=== PATIENT | male | born 1945 | race Caucasian/White ===

== ENCOUNTER 2025-07-20 08:38 | Inpatient (IN) | payer MEDICARE, SELFPAY ==
[2025-07-20] VITALS (11 sets, daily range): BP systolic 125–165; BP diastolic 62–93; PULSE 60–108; RESP 14–22; TEMP 36.6–36.8; O2SAT 97–100; BMI 25.6
--- NOTE | ~2025-07-20 | CT_ITS ---
EXAMINATION: CT brain wo con DATE: 07/20/2025 09:45 INDICATION: Mental status change. TECHNIQUE: Computed tomography (CT) of the head was performed without intravenous contrast. The mA was adjusted according to patient size. Iterative reconstruction technique was employed. The dose-length product was 605.33 mGy-cm. COMPARISON: None FINDINGS: There are scattered areas of low attenuation in the cerebral white matter, which is within normal limits for the patient's age. There is no intracranial hemorrhage, acute infarction, or abnormal intracranial mass lesion. The ventricles are normal in size. There are likely changes of ocular lens replacement surgeries. There is mucosal thickening in the paranasal sinuses. There is thickening and sclerosis of the jimenez of the maxillary sinuses, consistent with chronic sinusitis. The mastoid air cells are normal. IMPRESSION: 1. Normal aging brain. 2. Chronic sinusitis. Reviewed, dictated and finalized at location E.
--- NOTE | ~2025-07-20 | XR_ITS ---
EXAMINATION: XR chest 1V, 07/20/2025 9:42 CDT HISTORY: cough COMPARISON: No comparisons available. Technique: Single view. Findings: The lungs are clear, no effusion. No pneumothorax. Heart is normal size. Mediastinal and hilar contours are within normal limits. Bony thorax no acute abnormality. Impression: No acute cardiopulmonary abnormality. Reviewed, dictated and finalized at location P. Impression: No acute cardiopulmonary abnormality.
--- NOTE | ~2025-07-20 | US_ITS ---
EXAMINATION: US venous doppler UE LT, 07/24/2025 17:00 CDT HISTORY: Phlebitis Comparison: None Technique: Multiple vega scale and color Doppler sonographic images were obtained of the internal jugular, subclavian, axillary, brachial, basilar, radial and ulnar veins. Findings: Venous System:Normal flow, augmentation and compressibility. No echogenic thrombus identified. Soft tissues: Soft tissues are unremarkable. Impression: Negative for DVT. Reviewed, dictated and finalized at location P. Impression: Negative for DVT.
--- NOTE | 2025-07-20 09:23 | ECG_ITS ---
Test Date: 2025-07-20 09:37:18 Measurements Intervals [place] Rate: 97 P: -57 WA: 157 QRS: -34 QRSD: 106 T: 60 QT: 356 QTc: 453 Interpretive Statements SINUS RHYTHM WITH FREQUENT SUPRAVENTRICULAR PREMATURE COMPLEXES LEFT AXIS DEVIATION DELAYED PRECORDIAL R/S TRANSITION VOLTAGE CRITERIA FOR LVH BORDERLINE ST-T WAVE ABNORMALITY- HIGH LATERAL LEADS ABNORMAL ECG No previous ECG available for comparison Electronically Signed On 07-20-2025 10:11:23 CDT by Med Carter D.O.
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
--- NOTE | 2025-07-20 09:38 | PC.NURSE ---
Pt compliance monitor appeared to show brief run of V-tach. RN went into pt room, Pt awake and at baseline mentation, no complaints at this time. EDP aware. Cardiac strip printed and placed in chart. EKG obtained, did not capture the rhythm.
[2025-07-20 09:54] LABS: Hematocrit 36.4 % (42.0-52.0); Hemoglobin 11.6 g/dL (14.0-18.0); Immature Granulocyte Percent A 0.5 % (0-0.5); Lymphocytes Absolute Auto 0.58 K/mm3 (0.9-3.2); Mean Corpuscular HGB Conc 31.9 g/dl (32-36); Mean Corpuscular Hemoglobin 28.6 pg (26-34); Mean Corpuscular Volume 89.9 fl (80-100); Nucleated Red Blood Cells Absolute Auto 0.000 K/mm3 (0.0-0.012); Nucleated Red Blood Cells Perc 0.0 % (0.0-0.2); Platelet Count Result 186 k/mm3 (150-375); Red Blood Count 4.05 M/mm3 (4.6-6.20); White Blood Count 9.8 K/mm3 (4.5-10.0)
[2025-07-20 10:00] LABS: Acetaminophen < 10 ug/mL (10-30); Ammonia 96 umol/L (9-30)
[2025-07-20 10:07] LABS: INR 1.1; Prothrombin Time 13.9 Seconds (11.1-14.7)
[2025-07-20 10:08] LABS: Partial Thromboplastin Time 34.3 Seconds (22.3-36.8)
[2025-07-20 10:20] LABS: Alanine Aminotransferase 28 U/L (6-50); Albumin Level 3.6 g/dL (3.5-5.1); Alkaline Phosphatase 72 U/L (38-126); Anion Gap 6 mmol/L (4-12); Aspartate Amino Transferase 42 U/L (17-59); Bilirubin,Total 0.7 mg/dL (0.2-1.3); Blood Urea Nitrogen 26 mg/dL (9-20); Calcium 9.0 mg/dL (8.4-10.2); Carbon Dioxide 27 mmol/L (22-30); Chloride 109 mmol/L (98-107); Creatine Kinase 380 U/L (55-170); Estimated CRCL calculation 59 ml/min; Estimated Glomerular Filt Rate > 60; Glucose 108 mg/dL (65-110); Magnesium 1.8 mg/dL (1.6-2.3); Potassium 3.4 mmol/L (3.4-5.0); Sodium 142 mmol/L (137-145); Total Protein 6.3 g/dL (6.3-8.2)
[2025-07-20 10:36] LABS: Troponin I 0.042 ng/mL (0.000-0.034)
[2025-07-20 10:46] LABS: Thyroid Stimulating Hormone 0.444 uIU/mL (0.465-4.680)
[2025-07-20] MEDS: SODIUM CHLORIDE 0.9% IV 1,000 ML 999 ML IV CONT (11:37)
[2025-07-20 11:41] LABS: Salicylate < 1.0 mg/dL (2-20)
[2025-07-20 11:54] LABS: Add Urine Microscopic? YES; Appearance Urine Clear (Clear); Glucose Urine UA Negative (Negative); Leukocyte Esterase Ur Trace LEU/UL (Negative); Nitrate Urine Negative (Negative); Specific Grav Ur 1.020 (1.001-1.035)
--- NOTE | 2025-07-20 12:40 | ECG_ITS ---
Test Date: 2025-07-20 12:45:36 Measurements Intervals [place] Rate: 99 P: 92 AR: 198 QRS: -33 QRSD: 110 T: 62 QT: 352 QTc: 453 Interpretive Statements SINUS RHYTHM WITH OCCASIONAL SUPRAVENTRICULAR PREMATURE COMPLEXES LEFT AXIS DEVIATION LEFT VENTRICULAR HYPERTROPHY WITH ST-T CHANGE BASELINE ARTIFACT- I, II, III, AVR, AVL, AVF, V1-V6 BORDERLINE ECG Compared to ECG 07/20/2025 09:37:18 NO SIGNIFICANT CHANGE Electronically Signed On 07-20-2025 15:13:39 CDT by Med Carter D.O.
--- NOTE | 2025-07-20 12:41 | PC.NURSE ---
Per pt request RN attempted to contact daughter Janay Rice, no answer message left Janay [phone]
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
[2025-07-20 13:29] LABS: Troponin I 0.058 ng/mL (0.000-0.034)
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
[2025-07-20] MEDS: diazePAM INJ (*CRX) 10 MG/2 ML SYRINGE 5 MG IV PUSH (15:16)
[2025-07-20] MEDS: SODIUM CHLORIDE 0.9% IV 1,000 ML 100 ML IV CONT (15:57)
[2025-07-20] MEDS: LACTULOSE 20 GM/30 ML UDC 45 GM PO (16:41)
--- NOTE | 2025-07-20 18:23 | ADMGEN ---
This patient, Humberto Ku, was admitted to Medical Room 244-. Patient/family oriented to hospital policies and general routines including ID bracelet, bed and alarms, visiting hours, pain management, procedures, bathroom and other care routines, personal items, smoking policy, room service/diet, and visiting hours. Information on how to activate the Rapid Response Team has been discussed. Patient/Family are encouraged to report perceived risks to care and to ask questions if they do not understand what they are told or what they should do.
[2025-07-20] MEDS: ZIPRASIDONE HCL 20 MG CAPSULE PO (21:18)
[2025-07-21] MEDS: SODIUM CHLORIDE 0.9% IV 1,000 ML 100 ML IV CONT (01:15)
[2025-07-21 04:50] LABS: Hematocrit 38.5 % (42.0-52.0); Hemoglobin 12.3 g/dL (14.0-18.0); Immature Granulocyte Percent A 0.6 % (0-0.5); Lymphocytes Absolute Auto 1.32 K/mm3 (0.9-3.2); Mean Corpuscular HGB Conc 31.9 g/dl (32-36); Mean Corpuscular Hemoglobin 28.5 pg (26-34); Mean Corpuscular Volume 89.3 fl (80-100); Nucleated Red Blood Cells Absolute Auto 0.000 K/mm3 (0.0-0.012); Nucleated Red Blood Cells Perc 0.0 % (0.0-0.2); Platelet Count Result 178 k/mm3 (150-375); Red Blood Count 4.31 M/mm3 (4.6-6.20); White Blood Count 6.7 K/mm3 (4.5-10.0)
[2025-07-21 04:59] LABS: Ammonia < 9 umol/L (9-30)
[2025-07-21 05:23] LABS: Anion Gap 6 mmol/L (4-12); Blood Urea Nitrogen 15 mg/dL (9-20); Calcium 8.4 mg/dL (8.4-10.2); Carbon Dioxide 26 mmol/L (22-30); Chloride 108 mmol/L (98-107); Creatine Kinase 293 U/L (55-170); Estimated CRCL calculation 84 ml/min; Estimated Glomerular Filt Rate > 60; Glucose 90 mg/dL (65-110); Magnesium 1.7 mg/dL (1.6-2.3); Potassium 3.2 mmol/L (3.4-5.0); Sodium 140 mmol/L (137-145)
[2025-07-21 05:27] VITALS: BP 156/69; PULSE 85; RESP 16; TEMP 36.8; O2SAT 98
[2025-07-21 05:33] LABS: Free T4 Free Thyroxine 1.22 ng/dL (0.78-2.19)
[2025-07-21 05:47] LABS: Partial Thromboplastin Time 36.8 Seconds (22.3-36.8)
--- NOTE | 2025-07-21 06:00 | ECG_ITS ---
Test Date: 2025-07-21 14:18:51 Measurements Intervals [place] Rate: 110 P: 0 RI: 0 QRS: -35 QRSD: 112 T: 26 QT: 345 QTc: 467 Interpretive Statements SINUS TACHYCARDIA WITH ATRIAL TRIPLET, ATRIAL COUPLET, AND ATRIAL AND VENTRICULAR PREMATURE COMPLEXES LEFT AXIS DEVIATION INTRAVENTRICULAR CONDUCTION DELAY DELAYED PRECORDIAL R/S TRANSITION LEFT VENTRICULAR HYPERTROPHY WITH ST-T CHANGE ABNORMAL ECG Compared to ECG 07/20/2025 12:45:36 HEART RATE HAS INCREASED Electronically Signed On 07-21-2025 18:25:43 CDT by Med Carter D.O.
[2025-07-21 06:28] LABS: INR 1.2; Prothrombin Time 15.0 Seconds (11.1-14.7)
--- NOTE | 2025-07-21 07:07 | P.PNIM_ITS ---
Progress Note: A&P Assessment and Plan (1) Aggression: Code(s): R46.89 - Other symptoms and signs involving appearance and behavior Status: Acute Assessment and Plan: * Patient was given Seroquel and Geodon at alf * Head CT with no acute finding * Continue Seroquel and Geodon * EKG to check QTC 453 * Monitor electrolytes * Treat ammonia level - WNL on 07/21 * Treat dehydration * Valproic level pending * Daughter is working with the patient's facility to get pharmacogenetic testing done, will work with Genna Chavez [phone], the director of the facility to have a cheek swab collected * Given Zyprexa and Valium for agitation on 07/21 * Clonidine 0.2 Mg/24 Hr patch * Psych consult (2) Elevated troponin: Code(s): R79.89 - Other specified abnormal findings of blood chemistry Status: Acute Assessment and Plan: * Trend troponin * EKG prn * Telemetry monitoring (3) Hyperammonemia: Code(s): E72.20 - Disorder of urea cycle metabolism, unspecified Status: Acute Assessment and Plan: * Repeat ammonia level in a.m. * Lactulose x1 * 07/21: Ammonia < 9 (4) Acute dehydration: Code(s): E86.0 - Dehydration Status: Acute Assessment and Plan: * Fluid bolus followed by IVF (5) Elevated CK: Code(s): R74.8 - Abnormal levels of other serum enzymes Status: Acute Assessment and Plan: * Hydration * CK in a.m. * 380 -> 293 (6) Low TSH level: Code(s): R79.89 - Other specified abnormal findings of blood chemistry Status: Acute Assessment and Plan: * T3 and T4 pending Subjective Date/time seen: 07/21/25 07:07 Interval history: 79-year-old male with history of Lewy body dementia presents the hospital from [facility] with altered mental status and aggressive behavior. Per the alf the patient is usually alert and oriented x1. According to the nursing faculty the patient arrived to their facility on 07/19/2025 did well the 1st day and throughout the night. 07/21/2025 At time of initial interaction, patient was walking the hallways, easily redirected but pleasantly confused. Delio parrish was then called twice for agitation with staff, he was subsequently given 10mg Zyprexa, calmed down for a period of time then became agitated again. Given additional 5mg IV Valium and so far the patient has been calm again. Psych has been consulted. His sending facility is able to take the patient back eventually but will want a psychiatric consult. Slightly hypokalemic this am, given appropriate supplementation, otherwise vitals and labs are stable. Review of Systems Review of Systems: ROS unobtainable: Yes unobtainable due to mental status Exam Narrative: General: No acute distress HEENT: normocephalic, atraumatic. Mucous membranes dry. EOMI, PERRLA, bilateral sclera anicteric, no conjunctival injection. Neck supple without JVD, lymphadenopathy, or bruit. Respiratory: clear to ascultation bilaterally. No rales/rhonic/wheezes. Cardiovascular: Regular rate and rhythm, normal S1-S2 upon ascultation. No murmurs, rubs, or clicks. PMI is nondisplaced, capillary refill less than 3 second. Abdomen: Soft, round, no pulsatile masses, nondistended and nontender. No rebound, no guarding. No CVA tenderness, no hepatosplenomegaly. Bowel sounds present to all four quadrants. No high pitch or tinkling sounds, resonant to percussion. Extremities: No cyanosis, clubbing, or edema present. Pulses are palpable 2/2. Active ROM to all four extremities. Neuro: Alert and orientated x 1. PERRLA. Follows simple commands. Cranial nerves 2-12 intact without focal deficit. Skin: Warm, dry, and intact, without rash, erythema, or lesion. Psych: pleasant on bedside exam Objective Data Vital Signs Vital Signs: Vital Signs - 24 hr 07/20/25 08:40 07/20/25 08:46 07/20/25 08:46 Temperature 98.1 F Pulse Rate 108 H 107 H Respiratory Rate 22 H Blood Pressure 151/89 H Pulse Oximetry 97 97 Oxygen Delivery Room Air Room Air 07/20/25 08:46 07/20/25 09:41 07/20/25 11:12 Temperature Pulse Rate 108 H 93 91 Respiratory Rate 16 15 14 Blood Pressure 151/89 H 151/89 H 162/89 H Pulse Oximetry 97 98 100 Oxygen Delivery 07/20/25 12:46 07/20/25 15:19 07/20/25 16:43 Temperature Pulse Rate 98 97 95 Respiratory Rate 16 18 18 Blood Pressure 165/92 H 153/88 H 125/80 Pulse Oximetry 100 99 100 Oxygen Delivery 07/20/25 17:30 07/20/25 18:42 07/20/25 20:00 Temperature 98.3 F Pulse Rate 97 85 60 Respiratory Rate 18 Blood Pressure 158/93 H Pulse Oximetry 100 Oxygen Delivery 07/20/25 20:15 07/21/25 05:27 Temperature 97.9 F 98.2 F Pulse Rate 64 85 Respiratory Rate 18 16 Blood Pressure 130/62 156/69 H Pulse Oximetry 97 98 Oxygen Delivery Intake/Output Intake/Output: Intake & Output 07/18/25 07/19/25 07/20/25 07/21/25 23:59 23:59 23:59 23:59 Intake Total 1790 200 Output Total 150 Balance 1640 200 Meds/Results Medications: Active Medications Generic Name Dose Route Start Last Admin Trade Name Freq PRN Reason Stop Dose Admin Acetaminophen 650 mg 07/20/25 13:52 Acetaminophen 325 Mg Tablet PO Q4H PRN Mild Pain (1-3) or Fever Docusate Sodium 100 mg 07/20/25 17:00 07/20/25 18:39 Docusate Sodium 100 Mg Capsule PO Not Given BID CORBIN Sodium Chloride 1,000 mls @ 100 mls/hr 07/20/25 13:55 07/21/25 01:15 Normal Saline Iv IV CONT 100 mls/hr .Q10H CORBIN Administration Potassium Chloride 20 meq 07/21/25 07:04 Potassium Chloride 20 Meq Er Tablet PO 07/21/25 07:05 ONCE ONE Quetiapine Fumarate 25 mg 07/20/25 21:00 07/20/25 21:18 Quetiapine Fumarate 25 Mg Tablet PO 25 mg HS CORBIN Administration Quetiapine Fumarate 25 mg 07/20/25 22:00 07/21/25 06:37 Quetiapine Fumarate 25 Mg Tablet PO 25 mg Q8HR CORBIN Administration Ziprasidone 20 mg 07/20/25 21:00 07/20/25 21:18 Ziprasidone Hcl 20 Mg Capsule PO 20 mg Q12HR CORBIN Administration Radiology Results: ITS Impressions Head CT 07/20/25 09:45 IMPRESSION: 1. Normal aging brain. 2. Chronic sinusitis. Chest X-Ray 07/20/25 09:49 Impression: No acute cardiopulmonary abnormality. Labs Labs: Laboratory Results - last 24 hr 07/20/25 07/20/25 07/20/25 09:35 09:36 10:19 WBC 9.8 RBC 4.05 L Hgb 11.6 L Hct 36.4 L MCV 89.9 MCH 28.6 MCHC 31.9 L RDW 14.0 Plt Count 186 MPV 11.1 H Immature Gran % (Auto) 0.5 Neut % (Auto) 84.4 H Lymph % (Auto) 5.9 L Fountain % (Auto) 8.5 Eos % (Auto) 0.2 Baso % (Auto) 0.5 Lymph # (Auto) 0.58 L Fountain # (Auto) 0.8 H Eos # (Auto) 0.0 Baso # (Auto) 0.1 Abs Immat Gran (auto) 0.05 H Absolute Neuts (auto) 8.3 H Absolute Nucleated RBC 0.000 Nucleated RBC % 0.0 PT 13.9 INR 1.1 APTT 34.3 Sodium 142 Potassium 3.4 Chloride 109 H Carbon Dioxide 27 Anion Gap 6 BUN 26 H Creatinine 1.06 Estim Creat Clear Calc 59 Estimated GFR > 60 Glucose 108 POC Capillary Glucose 99 Calcium 9.0 Phosphorus Magnesium 1.8 Cancelled Total Bilirubin 0.7 AST 42 ALT 28 Alkaline Phosphatase 72 Ammonia 96 H Total Creatine Kinase 380 H Troponin I 0.042 H* Total Protein 6.3 Albumin 3.6 TSH 0.444 L Free T4 Urine Color Urine Appearance Urine pH Ur Specific [place] Urine Protein Urine Glucose (UA) Urine Ketones Ur Blood (Man) Urine Nitrate Urine Bilirubin Urine Urobilinogen Leukocyte Esterase Rfl Urine RBC Urine WBC Ur Squamous Epith Cells Urine Bacteria Urine Casts Salicylates < 1.0 L Acetaminophen < 10 L Ethyl Alcohol < 10 07/20/25 07/20/25 07/21/25 11:36 12:44 04:43 WBC 6.7 RBC 4.31 L Hgb 12.3 L Hct 38.5 L MCV 89.3 MCH 28.5 MCHC 31.9 L RDW 13.6 Plt Count 178 MPV 10.9 H Immature Gran % (Auto) 0.6 H Neut % (Auto) 66.7 Lymph % (Auto) 19.6 Fountain % (Auto) 9.4 H Eos % (Auto) 3.1 Baso % (Auto) 0.6 Lymph # (Auto) 1.32 Fountain # (Auto) 0.6 Eos # (Auto) 0.2 Baso # (Auto) 0.0 Abs Immat Gran (auto) 0.04 H Absolute Neuts (auto) 4.5 Absolute Nucleated RBC 0.000 Nucleated RBC % 0.0 PT INR APTT Sodium 140 Potassium 3.2 L Chloride 108 H Carbon Dioxide 26 Anion Gap 6 BUN 15 D Creatinine 0.72 Estim Creat Clear Calc 84 Estimated GFR > 60 Glucose 90 POC Capillary Glucose Calcium 8.4 Phosphorus 2.4 L Magnesium 1.7 Total Bilirubin AST ALT Alkaline Phosphatase Ammonia < 9 L Total Creatine Kinase 293 H Troponin I 0.058 H* D Total Protein Albumin TSH Free T4 1.22 Urine Color Yellow Urine Appearance Clear Urine pH 6.5 Ur Specific [place] 1.020 Urine Protein 1+ H Urine Glucose (UA) Negative Urine Ketones 1+ H Ur Blood (Man) Negative Urine Nitrate Negative Urine Bilirubin Negative Urine Urobilinogen 1.0 Leukocyte Esterase Rfl Trace H Urine RBC 0-2 Urine WBC 0-5 Ur Squamous Epith Cells None seen Urine Bacteria None seen Urine Casts 3-5 Salicylates Acetaminophen Ethyl Alcohol Quality VTE Prophylaxis VTE prophylaxis: mechanical ordered
[2025-07-21] MEDS: OLANZapine 5 MG, WATER, STERILE FOR INJECTION 2.1 ML IM (10:57)
[2025-07-21 11:35] VITALS: BP 139/95; PULSE 110; RESP 16; TEMP 36.6; O2SAT 98
[2025-07-21] MEDS: diazePAM INJ (*CRX) 10 MG/2 ML SYRINGE 5 MG IM (12:40)
[2025-07-21 14:00] VITALS: BP 147/76; PULSE 121; RESP 18; TEMP 36.6; O2SAT 99
[2025-07-21 20:19] VITALS: BP 149/76; PULSE 91; RESP 18; TEMP 36.6; O2SAT 99
[2025-07-21] MEDS: ZIPRASIDONE HCL 20 MG CAPSULE PO (21:08)
[2025-07-22 06:00] VITALS: BP 159/94; PULSE 50; RESP 17; TEMP 36.9; O2SAT 91
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
--- NOTE | 2025-07-22 09:45 | P.PNIM_ITS ---
Progress Note: A&P Assessment and Plan (1) Aggression: Code(s): R46.89 - Other symptoms and signs involving appearance and behavior Status: Acute Assessment and Plan: * Patient on soft restraints * Head CT with no acute finding * Psych eval noted, started on Olanzapine 5mg q6 and Seroquel 25mg tid per psych * Valproic level pending * Daughter is working with the patient's facility to get pharmacogenetic testing done, will work with Genna Chavez [phone], the director of the facility to have a cheek swab collected * Clonidine 0.2 Mg/24 Hr patch * Psych recs appreciated (2) Elevated troponin: Code(s): R79.89 - Other specified abnormal findings of blood chemistry Status: Acute Assessment and Plan: * Trend troponin * ECHO ordered * Telemetry monitoring * cardiology consulted * continue Aspirin and Lipitor pending Card eval (3) Hyperammonemia: Code(s): E72.20 - Disorder of urea cycle metabolism, unspecified Status: Acute Assessment and Plan: * Repeat ammonia level in a.m. * Lactulose x1 * 07/21: Ammonia < 9 * resolved (4) Acute dehydration: Code(s): E86.0 - Dehydration Status: Acute Assessment and Plan: * COntinue IVF until patient is adequately eating (5) Elevated CK: Code(s): R74.8 - Abnormal levels of other serum enzymes Status: Acute Assessment and Plan: * Hydration * CK in a.m. * 380 -> 293 (6) Low TSH level: Code(s): R79.89 - Other specified abnormal findings of blood chemistry Status: Acute Assessment and Plan: * T4 1.22 wnl, T3 pending Plan DVT prophylaxis on Sq Lovenox Subjective Date/time seen: 07/22/25 09:45 Interval history: Comfortable at bedside Psych eval noted Review of Systems Review of Systems: ROS unobtainable: Yes unobtainable due to mental status Exam Narrative: General: No acute distress HEENT: normocephalic, atraumatic. Mucous membranes dry. EOMI, PERRLA, bilateral sclera anicteric, no conjunctival injection. Neck supple without JVD, lymphadenopathy, or bruit. Respiratory: clear to ascultation bilaterally. No rales/rhonic/wheezes. Cardiovascular: Regular rate and rhythm, normal S1-S2 upon ascultation. No murmurs, rubs, or clicks. PMI is nondisplaced, capillary refill less than 3 second. Abdomen: Soft, round, no pulsatile masses, nondistended and nontender. No rebound, no guarding. No CVA tenderness, no hepatosplenomegaly. Bowel sounds present to all four quadrants. No high pitch or tinkling sounds, resonant to percussion. Extremities: No cyanosis, clubbing, or edema present. Pulses are palpable 2/2. Active ROM to all four extremities. Neuro: Alert and orientated x 1. PERRLA. Follows simple commands. Cranial nerves 2-12 intact without focal deficit. Skin: Warm, dry, and intact, without rash, erythema, or lesion. Psych: pleasant on bedside exam Objective Data Vital Signs Vital Signs: Vital Signs - 24 hr 07/21/25 11:35 07/21/25 14:00 07/21/25 20:19 Temperature 97.8 F 97.9 F 97.8 F Pulse Rate 110 H 121 H 91 Respiratory Rate 16 18 18 Blood Pressure 139/95 H 147/76 H 149/76 H Pulse Oximetry 98 99 99 07/22/25 06:00 Temperature 98.5 F Pulse Rate 50 L Respiratory Rate 17 Blood Pressure 159/94 H Pulse Oximetry 91 Intake/Output Intake/Output: Intake & Output 07/19/25 07/20/25 07/21/25 07/22/25 23:59 23:59 23:59 23:59 Intake Total 1790 920 Output Total 150 950 Balance 1640 920 -950 Meds/Results Medications: Active Medications Generic Name Dose Route Start Last Admin Trade Name Freq PRN Reason Stop Dose Admin Acetaminophen 650 mg 07/20/25 13:52 Acetaminophen 325 Mg Tablet PO Q4H PRN Mild Pain (1-3) or Fever Aspirin 81 mg 07/22/25 09:00 Aspirin 81 Mg Enteric Tablet PO QAM CORBIN Clonidine HCl 1 patch 07/28/25 09:00 Clonidine 0.2 Mg/24 Hr Patch TRANSDERM WEEKLY CORBIN Docusate Sodium 100 mg 07/20/25 17:00 07/21/25 17:05 Docusate Sodium 100 Mg Capsule PO Not Given BID CORBIN Sodium Chloride 1,000 mls @ 100 mls/hr 07/20/25 13:55 07/21/25 01:15 Normal Saline Iv IV CONT 100 mls/hr .Q10H CORBIN Administration Quetiapine Fumarate 50 mg 07/22/25 21:00 Quetiapine Fumarate 25 Mg Tablet PO HS CORBIN Ziprasidone 20 mg 07/20/25 21:00 07/21/25 21:08 Ziprasidone Hcl 20 Mg Capsule PO 20 mg Q12HR CORBIN Administration Radiology Results: ITS Impressions Head CT 07/20/25 09:45 IMPRESSION: 1. Normal aging brain. 2. Chronic sinusitis. Chest X-Ray 07/20/25 09:49 Impression: No acute cardiopulmonary abnormality. Quality VTE Prophylaxis VTE prophylaxis: mechanical ordered
[2025-07-22] MEDS: ASPIRIN 81 MG ENTERIC TABLET PO (09:49)
[2025-07-22] MEDS: DOCUSATE SODIUM 100 MG CAPSULE PO (09:49)
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
[2025-07-22 14:00] VITALS: BP 131/62; PULSE 71; RESP 16; TEMP 36.4; O2SAT 98
[2025-07-22 20:00] VITALS: PULSE 71; RESP 16; O2SAT 98
--- NOTE | 2025-07-23 | ECHO_ITS ---
Patient Info Name: Humberto Ku Age: 79 years : 1945 Gender: Male Ht: 75 in Wt: 205 lbs BSA: 2.23 m2 HR: 70 bpm BP: 139 / 79 mmHg Heart Rhythm: Sinus Rhythm Technical Quality: Fair Exam Date: 07/23/2025 3:51 PM Patient Status: I Admit Date: 07/21/2025 Exam Type: CA echo dop color flow w con Complete two-dimensional, color flow and Doppler transthoracic echocardiogram is performed with contrast to opacify the left ventricle and to improve the deliniation of the left ventricle endocardial borders. Staff Referring Physician: Leigh Allen Policy Adviser: Regina Luque Attending Provider: Patrice Cowan Contrast/Agitated Saline Contrast/Ag. Saline: Definity Amount: 2.00 ml Administered By: Regina Luque Existing IV Access: Yes IV Access Condition: patent with no signs of infiltration Summary 1. Definity contrast administered improved wall motion interpretation. 2. Left ventricular chamber dimension is normal. 3. Left ventricular systolic function is normal, estimated at 65-70. 4. The left ventricular diastolic function is grade I diastolic dysfunction. 5. E/e' 9 is minimally elevated. 6. There is mild aortic valve sclerosis. Left Ventricle E/e' 9 is minimally elevated. Left ventricular chamber dimension is normal. Left ventricular systolic function is normal, estimated at 65-70. The left ventricular diastolic function is grade I diastolic dysfunction. Definity contrast administered improved wall motion interpretation. Right Ventricle Right ventricular chamber dimension is normal. Right ventricular systolic function is normal and with normal TAPSE 2.3 cm. Left Atria Left atrial chamber dimension is normal. Right Atria Right atrial chamber dimension is normal. Aortic Valve The aortic valve is trileaflet. There is mild aortic valve sclerosis. There is no aortic valve stenosis. There is no aortic valve regurgitation. Pulmonic Valve There is no pulmonic regurgitation. Mitral Valve There is no mitral valve stenosis. There is no mitral valve regurgitation. Tricuspid Valve There is no tricuspid valve regurgitation. Pericardium/Pleural There is no pericardial effusion. Inferior Vena Cava Normal inferior vena cava with >50% collapse upon inspiration consistent with normal right atrial pressure, 5 mmHg. Aorta The aortic root size at the sinus of Valsalva is normal. Left Ventricular Outflow Tract Name Value Normal LVOT 2D LVOT Diameter 2.0 cm LVOT Doppler LVOT Peak Velocity 108 cm/s LVOT Peak Gradient 5 mmHg LVOT Mean Gradient 2 mmHg LVOT VTI 18 cm LVOT VTI/AV VTI Ratio 0.7 LVOT Stroke Volume 56 ml LVOT CO 5.4 l/min LVOT CI 2.4 l/min/m2 Pulmonic Valve Name Value Normal RVOT Doppler RVOT Peak Velocity 97 cm/s RVOT Peak Gradient 4 mmHg PV Doppler PV Peak Velocity 115 cm/s PV Peak Gradient 5 mmHg Mitral Valve Name Value Normal MV Diastolic Function MV E Peak Velocity 69 cm/s MV A Peak Velocity 126 cm/s MV E/A 0.6 MV Decel Time (PW) 162 ms MV Annular TDI MV E/e' (Septal) 13.1 MV E/e' (Lateral) 7.8 MV E/e' (Average) 10.5 Tricuspid Valve Name Value Normal Estimated PAP/RSVP RA Pressure 5 mmHg <=5 TV Annular TDI TV Lateral Constance s' Velocity 14.1 cm/s >=9.5 Aorta Name Value Normal Ascending Aorta Ao Root Diameter (MM) 4.4 cm Ao Root Diam Index (MM) 2.0 cm/m2 Aortic Valve Name Value Normal AV Doppler AV Peak Velocity 160 cm/s AV Peak Gradient 10 mmHg AV Mean Gradient 5 mmHg AV VTI 24 cm AV Area (Cont Eq VTI) 2.3 cm2 >=3.0 AV Area (Cont Eq [place]) 2.1 cm2 AV DI ([place]) 0.67 AV Regurgitation 2D LVOT Area 3.2 cm2 Ventricles Name Value Normal LV Dimensions 2D/MM IVS Diastolic Thickness (2D) 0.7 cm 0.6-1.0 LVID Diastole (2D) 6.1 cm 4.2-5.8 LVIW Diastolic Thickness (2D) 0.7 cm 0.6-1.0 LVID Systole (2D) 3.5 cm 2.5-4.0 LVOT Diameter 2.0 cm LV Mass (2D Cubed) 154.63 g 88.00-224.00 LV Mass Index (2D Cubed) 69 g/m2 49-115 Relative Wall Thickness (2D) 0.23 <=0.42 LV Fractional Shortening/Ejection Fraction 2D/MM LV Fractional Shortening (2D) 42 % 25-43 LV EF (2D [place]) 72 % LV Diastolic Volume (4C MOD) 104 ml LV EF (4C MOD) 55 % LV Diastolic Volume (2C MOD) 59 ml LV EF (2C MOD) 54 % LV Diastolic Volume (BP MOD) 81 ml 62-150 LV Diastolic Volume Index (BP MOD) 37 ml/m2 34-74 LV Systolic Volume (BP MOD) 35 ml 21-61 LV Systolic Volume Index (BP MOD) 16 ml/m2 11-31 LV EF (BP MOD) 56 % 52-72 LV Diastolic Length (4C) 8.7 cm LV Systolic Length (4C) 7.3 cm LV Stroke Volume (4C MOD) 57 ml Atria Name Value Normal LA Dimensions LA Dimension (MM) 4.4 cm 3.0-4.0 LA Volume (4C A-L) 59 ml LA Volume (BP A-L) 55 ml RA Dimensions RA Systolic Major Straughn Length (4C) 5.9 cm 2.1-2.7 RA Area (4C) 17.2 cm2 <=18.0 Report Signatures
[2025-07-23 01:17] VITALS: BP 130/86; PULSE 77; RESP 16; TEMP 36.6; O2SAT 98
[2025-07-23 04:18] VITALS: BP 139/79; PULSE 70; RESP 17; TEMP 36.3; O2SAT 95
--- NOTE | 2025-07-23 08:00 | PM.PNCARD ---
Progress Note: A&P Assessment and Plan (1) Elevated troponin: Code(s): R79.89 - Other specified abnormal findings of blood chemistry Status: Acute Assessment and Plan: Only slightly elevated up at .058 Check Echo. If Echo is OK no further cardiac workup is needed for patient who is asymptomatic. Stopped Lovenox. (2) Lewy body dementia with agitation: Code(s): G31.83 - Neurocognitive disorder with Lewy bodies; F02.811 - Dementia in other diseases classified elsewhere, unspecified severity, with agitation Status: Acute Assessment and Plan: Psych following. Subjective Date/time seen: 07/23/25 08:00 Interval history: Denies chest pain or sob. He is in soft restraints. Exam Const: General: cooperative, healthy appearing and comfortable Orientation/consciousness: oriented to person, oriented to place and oriented to time Resp: Auscultation: clear to auscultation bilaterally, no crackles, no rales, no rhonchi and no wheezes Cardio: Rate: regular rate Rhythm: regular rhythm Heart sounds: no murmurs Peripheral pulses: dorsalis pedis present Neuro: General: oriented to person, oriented to place and oriented to time Extrem: Right lower extremity: no edema Left lower extremity: no edema Objective Data Vital Signs Vital Signs: Vital Signs - 24 hr 07/22/25 14:00 07/22/25 20:00 07/23/25 01:17 Temperature 97.6 F 97.8 F Pulse Rate 71 71 77 Respiratory Rate 16 16 16 Blood Pressure 131/62 130/86 Pulse Oximetry 98 98 98 Oxygen Delivery Room Air 07/23/25 04:18 Temperature 97.4 F L Pulse Rate 70 Respiratory Rate 17 Blood Pressure 139/79 Pulse Oximetry 95 Oxygen Delivery Intake/Output Intake/Output: Intake & Output 07/20/25 07/21/25 07/22/25 07/23/25 23:59 23:59 23:59 23:59 Intake Total 1790 920 720 0 Output Total 150 950 Balance 1640 920 -230 0 Meds/Results Medications: Active Medications Generic Name Dose Route Start Last Admin Trade Name Freq PRN Reason Stop Dose Admin Acetaminophen 650 mg 07/20/25 13:52 Acetaminophen 325 Mg Tablet PO Q4H PRN Mild Pain (1-3) or Fever Aspirin 81 mg 07/22/25 09:00 07/22/25 09:49 Aspirin 81 Mg Enteric Tablet PO 81 mg QAM CORBIN Administration Clonidine HCl 1 patch 07/28/25 09:00 Clonidine 0.2 Mg/24 Hr Patch TRANSDERM WEEKLY CORBIN Docusate Sodium 100 mg 07/20/25 17:00 07/22/25 17:04 Docusate Sodium 100 Mg Capsule PO Not Given BID CORBIN Enoxaparin Sodium 40 mg 07/23/25 09:00 Enoxaparin 40 Mg/0.4 Ml Syringe SUB-Q DAILY CORBIN Perflutren Lipid Microsphere 0 ml 07/22/25 09:48 Perflutren Lipid Microspheres 1.5 Ml Vial Diluted To 10 Ml Total Volume IV PUSH 07/25/25 09:48 ONCE PRN adequate visualization Protocol Quetiapine Fumarate 25 mg 07/22/25 10:00 07/22/25 17:04 Quetiapine Fumarate 25 Mg Tablet PO 25 mg TID CORBIN Administration Radiology Results: ITS Impressions Head CT 07/20/25 09:45 IMPRESSION: 1. Normal aging brain. 2. Chronic sinusitis. Chest X-Ray 07/20/25 09:49 Impression: No acute cardiopulmonary abnormality.
[2025-07-23] MEDS: ACETAMINOPHEN 325 MG TABLET 650 MG PO (08:59)
[2025-07-23] MEDS: DOCUSATE SODIUM 100 MG CAPSULE PO ×2 (08:59→16:58)
[2025-07-23] MEDS: ASPIRIN 81 MG ENTERIC TABLET PO (08:59)
[2025-07-23] MEDS: ENOXAPARIN 40 MG/0.4 ML SYRINGE SUB-Q (09:02)
[2025-07-23 10:08] LABS: Triiodothyronine (T3), Free 2.7 pg/mL (2.0-4.4)
[2025-07-23 13:45] VITALS: BP 159/71; PULSE 90; RESP 16; TEMP 36.4; O2SAT 96
--- NOTE | 2025-07-23 14:46 | P.PNIM_ITS ---
Progress Note: A&P Assessment and Plan (1) Aggression: Code(s): R46.89 - Other symptoms and signs involving appearance and behavior Status: Acute Assessment and Plan: * Patient on soft restraints * Head CT with no acute finding * Continue Seroquel 25mg tid per psych, Olanzapine on hold * Valproic level pending * Daughter is working with the patient's facility to get pharmacogenetic testing done, will work with Genna Chavez [phone], the director of the facility to have a cheek swab collected * Clonidine 0.2 Mg/24 Hr patch * Psych recs appreciated (2) Elevated troponin: Code(s): R79.89 - Other specified abnormal findings of blood chemistry Status: Acute Assessment and Plan: * Trend troponin * Telemetry monitoring * cardiology evaluated * continue Aspirin and Lipitor * ECHO pending (3) Hyperammonemia: Code(s): E72.20 - Disorder of urea cycle metabolism, unspecified Status: Acute Assessment and Plan: * Repeat ammonia level in a.m. * Lactulose x1 * 07/21: Ammonia < 9 * resolved (4) Acute dehydration: Code(s): E86.0 - Dehydration Status: Acute Assessment and Plan: * COntinue IVF until patient is adequately eating (5) Elevated CK: Code(s): R74.8 - Abnormal levels of other serum enzymes Status: Acute Assessment and Plan: * Hydration * CK in a.m. * 380 -> 293 (6) Low TSH level: Code(s): R79.89 - Other specified abnormal findings of blood chemistry Status: Acute Assessment and Plan: * T4 1.22 wnl, T3 pending Plan DVT prophylaxis on Sq Lovenox Subjective Date/time seen: 07/23/25 14:46 Interval history: Comfortable at bedside, no chest pain Review of Systems Review of Systems: ROS unobtainable: Yes unobtainable due to mental status Exam Narrative: General: No acute distress HEENT: normocephalic, atraumatic. Mucous membranes dry. EOMI, PERRLA, bilateral sclera anicteric, no conjunctival injection. Neck supple without JVD, lymphadenopathy, or bruit. Respiratory: clear to ascultation bilaterally. No rales/rhonic/wheezes. Cardiovascular: Regular rate and rhythm, normal S1-S2 upon ascultation. No murmurs, rubs, or clicks. PMI is nondisplaced, capillary refill less than 3 second. Abdomen: Soft, round, no pulsatile masses, nondistended and nontender. No rebound, no guarding. No CVA tenderness, no hepatosplenomegaly. Bowel sounds present to all four quadrants. No high pitch or tinkling sounds, resonant to percussion. Extremities: No cyanosis, clubbing, or edema present. Pulses are palpable 2/2. Active ROM to all four extremities. Neuro: Alert and orientated x 1. PERRLA. Follows simple commands. Cranial nerves 2-12 intact without focal deficit. Skin: Warm, dry, and intact, without rash, erythema, or lesion. Psych: pleasant on bedside exam Objective Data Vital Signs Vital Signs: Vital Signs - 24 hr 07/22/25 20:00 07/23/25 01:17 07/23/25 04:18 Temperature 97.8 F 97.4 F L Pulse Rate 71 77 70 Respiratory Rate 16 16 17 Blood Pressure 130/86 139/79 Pulse Oximetry 98 98 95 Oxygen Delivery Room Air 07/23/25 09:00 07/23/25 13:45 Temperature 97.6 F Pulse Rate 90 Respiratory Rate 16 Blood Pressure 159/71 H Pulse Oximetry 96 Oxygen Delivery Room Air Intake/Output Intake/Output: Intake & Output 07/20/25 07/21/25 07/22/25 07/23/25 23:59 23:59 23:59 23:59 Intake Total 1790 920 720 824 Output Total 150 950 1 Balance 1640 920 -230 823 Meds/Results Medications: Active Medications Generic Name Dose Route Start Last Admin Trade Name Freq PRN Reason Stop Dose Admin Acetaminophen 650 mg 07/20/25 13:52 07/23/25 08:59 Acetaminophen 325 Mg Tablet PO 650 mg Q4H PRN Administration Mild Pain (1-3) or Fever Aspirin 81 mg 07/22/25 09:00 07/23/25 08:59 Aspirin 81 Mg Enteric Tablet PO 81 mg QAM CORBIN Administration Clonidine HCl 1 patch 07/28/25 09:00 Clonidine 0.2 Mg/24 Hr Patch TRANSDERM WEEKLY CORBIN Docusate Sodium 100 mg 07/20/25 17:00 07/23/25 08:59 Docusate Sodium 100 Mg Capsule PO 100 mg BID CORBIN Administration Enoxaparin Sodium 40 mg 07/23/25 09:00 07/23/25 09:02 Enoxaparin 40 Mg/0.4 Ml Syringe SUB-Q 40 mg DAILY CORBIN Administration Perflutren Lipid Microsphere 0 ml 07/22/25 09:48 Perflutren Lipid Microspheres 1.5 Ml Vial Diluted To 10 Ml Total Volume IV PUSH 07/25/25 09:48 ONCE PRN adequate visualization Protocol Quetiapine Fumarate 25 mg 07/22/25 10:00 07/23/25 12:21 Quetiapine Fumarate 25 Mg Tablet PO 25 mg TID CORBIN Administration Radiology Results: ITS Impressions Head CT 07/20/25 09:45 IMPRESSION: 1. Normal aging brain. 2. Chronic sinusitis. Chest X-Ray 07/20/25 09:49 Impression: No acute cardiopulmonary abnormality. Labs Labs: Laboratory Results - last 24 hr 07/21/25 04:43 Free T3 pg/mL 2.7 Quality VTE Prophylaxis VTE prophylaxis: mechanical ordered
--- NOTE | 2025-07-23 16:24 | ECG_ITS ---
Test Date: 2025-07-23 16:46:16 Measurements Intervals [place] Rate: 99 P: 0 MN: 0 QRS: -37 QRSD: 107 T: 50 QT: 365 QTc: 469 Interpretive Statements SINUS RHYTHM WITH WITH VENTRICULAR COUPLET AND ATRIAL AND VENTRICULAR PREMATURE COMPLEXES LEFT AXIS DEVIATION LEFT VENTRICULAR HYPERTROPHY WITH ST-T CHANGE BASELINE ARTIFACT- I, III, AVR, AVL, AVF ABNORMAL ECG Compared to ECG 07/21/2025 14:18:51 HEART RATE HAS DECREASED Electronically Signed On 07-23-2025 17:03:18 CDT by Med Carter D.O.
[2025-07-23] MEDS: PERFLUTREN LIPID MICROSPHERES 1.5 ML VIAL DILUTED TO 10 ML TOTAL VOLUME IV PUSH (16:30)
--- NOTE | 2025-07-23 16:41 | IVDEFINITY ---
Prior to administration of IV Definity the patient was educated on the risks and benefits of the imaging enhancing agent including potential adverse side effects. The patient verbalized understanding. Allergies were verified. No exclusion criteria were identified and at least one of the following inclusion criteria were met: 1) physician request, 2) patient technically difficult to image (per the [place] [employer] guidelines of two or more segments not discernable within the apical view), or 3) questionable left ventricular function. ?
[2025-07-23 22:00] VITALS: BP 154/98; RESP 18; TEMP 36.5
[2025-07-24] VITALS (9 sets, daily range): BP systolic 123–151; BP diastolic 76–90; PULSE 56–115; RESP 13–18; TEMP 36.5–36.9; O2SAT 95–98
[2025-07-24] MEDS: OLANZapine 5 MG, WATER, STERILE FOR INJECTION 2.1 ML IM (04:03)
[2025-07-24 05:02] LABS: Hematocrit 36.5 % (42.0-52.0); Hemoglobin 11.9 g/dL (14.0-18.0); Immature Granulocyte Percent A 0.8 % (0-0.5); Lymphocytes Absolute Auto 1.06 K/mm3 (0.9-3.2); Mean Corpuscular HGB Conc 32.6 g/dl (32-36); Mean Corpuscular Hemoglobin 28.5 pg (26-34); Mean Corpuscular Volume 87.5 fl (80-100); Nucleated Red Blood Cells Absolute Auto 0.000 K/mm3 (0.0-0.012); Nucleated Red Blood Cells Perc 0.0 % (0.0-0.2); Platelet Count Result 197 k/mm3 (150-375); Red Blood Count 4.17 M/mm3 (4.6-6.20); White Blood Count 9.3 K/mm3 (4.5-10.0)
[2025-07-24 05:10] LABS: Ammonia < 9 umol/L (9-30)
[2025-07-24 05:38] LABS: Alanine Aminotransferase 26 U/L (6-50); Albumin Level 3.3 g/dL (3.5-5.1); Alkaline Phosphatase 63 U/L (38-126); Anion Gap 7 mmol/L (4-12); Aspartate Amino Transferase 32 U/L (17-59); Bilirubin,Total 0.8 mg/dL (0.2-1.3); Blood Urea Nitrogen 12 mg/dL (9-20); Calcium 8.5 mg/dL (8.4-10.2); Carbon Dioxide 26 mmol/L (22-30); Chloride 106 mmol/L (98-107); Creatine Kinase 224 U/L (55-170); Estimated CRCL calculation 78 ml/min; Estimated Glomerular Filt Rate > 60; Glucose 115 mg/dL (65-110); Magnesium 1.6 mg/dL (1.6-2.3); Potassium 3.1 mmol/L (3.4-5.0); Sodium 139 mmol/L (137-145); Total Protein 6.0 g/dL (6.3-8.2)
--- NOTE | 2025-07-24 07:00 | ECG_ITS ---
Test Date: 2025-07-24 09:15:55 Measurements Intervals [place] Rate: 127 P: 0 MO: 0 QRS: 214 QRSD: 98 T: 132 QT: 346 QTc: 503 Interpretive Statements SINUS TACHYCARDIA WITH ATRIAL TRIPLETS AND ATRIAL PREMATURE COMPLEXES LIMB LEAD REVERSAL VOLTAGE CRITERIA FOR LVH BASELINE ARTIFACT- I, II, III, AVR, AVL, AVF, V1-V6 ABNORMAL ECG Compared to ECG 07/23/2025 16:46:16 HEART RATE HAS INCREASED Electronically Signed On 07-24-2025 09:34:53 CDT by Med Carter D.O.
--- NOTE | 2025-07-24 07:49 | P.PNCA_ITS ---
Progress Note: A&P Assessment and Plan (1) Elevated troponin: Code(s): R79.89 - Other specified abnormal findings of blood chemistry Status: Acute Assessment and Plan: Only slightly elevated up at .058 07/24/25 Echo: Normal. Stopped Lovenox. No further cardiac workup is needed in an asymptomatic patient. Will sign off, please call with any questions. (2) Lewy body dementia with agitation: Code(s): G31.83 - Neurocognitive disorder with Lewy bodies; F02.811 - Dementia in other diseases classified elsewhere, unspecified severity, with agitation Status: Acute Assessment and Plan: Psych following. Subjective Date/time seen: 07/24/25 07:49 Interval history: Denies chest pain or sob. He is on soft restraints. Exam Const: General: cooperative, healthy appearing and comfortable Orientation/consciousness: oriented to person, oriented to place and oriented to time Resp: Auscultation: clear to auscultation bilaterally, no crackles, no rales, no rhonchi and no wheezes Cardio: Rate: regular rate Rhythm: regular rhythm Heart sounds: no m urmurs Peripheral pulses: dorsalis pedis present Neuro: General: oriented to person, oriented to place and oriented to time Extrem: Right lower extremity: no edema Left lower extremity: no edema Objective Data Vital Signs Vital Signs: Vital Signs - 24 hr 07/23/25 09:00 07/23/25 13:45 07/23/25 20:00 Temperature 97.6 F Pulse Rate 90 Respiratory Rate 16 Blood Pressure 159/71 H Pulse Oximetry 96 Oxygen Delivery Room Air Room Air 07/23/25 22:00 07/24/25 06:00 Temperature 97.7 F 97.7 F Pulse Rate 60 Respiratory Rate 18 18 Blood Pressure 154/98 H 151/83 H Pulse Oximetry 98 Oxygen Delivery Intake/Output Intake/Output: Intake & Output 07/21/25 07/22/25 07/23/25 07/24/25 23:59 23:59 23:59 23:59 Intake Total 891 665 5034 Output Total 950 1 Balance 920 -230 1138 Meds/Results Medications: Active Medications Generic Name Dose Route Start Last Admin Trade Name Freq PRN Reason Stop Dose Admin Acetaminophen 650 mg 07/20/25 13:52 07/23/25 08:59 Acetaminophen 325 Mg Tablet PO 650 mg Q4H PRN Administration Mild Pain (1-3) or Fever Aspirin 81 mg 07/22/25 09:00 07/23/25 08:59 Aspirin 81 Mg Enteric Tablet PO 81 mg QAM CORBIN Administration Clonidine HCl 1 patch 07/28/25 09:00 Clonidine 0.2 Mg/24 Hr Patch TRANSDERM WEEKLY [facility] Docusate Sodium 100 mg 07/20/25 17:00 07/23/25 16:58 Docusate Sodium 100 Mg Capsule PO 100 mg BID CORBIN Administration Enoxaparin Sodium 40 mg 07/23/25 09:00 07/23/25 09:02 Enoxaparin 40 Mg/0.4 Ml Syringe SUB-Q 40 mg DAILY CORBIN Administration Quetiapine Fumarate 25 mg 07/22/25 10:00 07/23/25 16:58 Quetiapine Fumarate 25 Mg Tablet PO 25 mg TID CORBIN Administration Radiology Results: ITS Impressions Head CT 07/20/25 09:45 IMPRESSION: 1. Normal aging brain. 2. Chronic sinusitis. Chest X-Ray 07/20/25 09:49 Impression: No acute cardiopulmonary abnormality. Labs Labs: Laboratory Results - last 24 hr 07/21/25 07/24/25 04:43 04:45 WBC 9.3 RBC 4.17 L Hgb 11.9 L Hct 36.5 L MCV 87.5 MCH 28.5 MCHC 32.6 RDW 13.7 Plt Count 197 MPV 11.4 H Immature Gran % (Auto) 0.8 H Neut % (Auto) 76.2 H Lymph % (Auto) 11.5 L [place] % (Auto) 9.8 H Eos % (Auto) 1.3 Baso % (Auto) 0.4 Lymph # (Auto) 1.06 [place] # (Auto) 0.9 H Eos # (Auto) 0.1 Baso # (Auto) 0.0 Abs Immat Gran (auto) 0.07 H Absolute Neuts (auto) 7.1 H Absolute Nucleated RBC 0.000 Nucleated RBC % 0.0 Sodium 139 Potassium 3.1 L Chloride 106 Carbon Dioxide 26 Anion Gap 7 BUN 12 Creatinine 0.79 Estim Creat Clear Calc 78 Estimated GFR > 60 Glucose 115 H Calcium 8.5 Magnesium 1.6 Total Bilirubin 0.8 AST 32 ALT 26 Alkaline Phosphatase 63 Ammonia < 9 L Total Creatine Kinase 224 H Total Protein 6.0 L Albumin 3.3 L Free T3 pg/mL 2.7
[2025-07-24] MEDS: DOCUSATE SODIUM 100 MG CAPSULE PO ×2 (08:38→16:40)
[2025-07-24] MEDS: ACETAMINOPHEN 325 MG TABLET 650 MG PO (08:38)
[2025-07-24] MEDS: ASPIRIN 81 MG ENTERIC TABLET PO (08:38)
[2025-07-24] MEDS: ENOXAPARIN 40 MG/0.4 ML SYRINGE SUB-Q (08:38)
--- NOTE | 2025-07-24 08:50 | P.PNIM_ITS ---
Progress Note: A&P Assessment and Plan (1) Aggression: Code(s): R46.89 - Other symptoms and signs involving appearance and behavior Status: Acute Assessment and Plan: * Patient on soft restraints * Head CT with no acute finding * Hold Seroquel 25mg tid and Olanzapine * Valproic level pending * Daughter is working with the patient's facility to get pharmacogenetic testing done, will work with Genna Chavez [phone], the director of the facility to have a cheek swab collected * Clonidine 0.2 Mg/24 Hr patch * Psych recs appreciated (2) Elevated troponin: Code(s): R79.89 - Other specified abnormal findings of blood chemistry Status: Acute Assessment and Plan: * Trend troponin * Telemetry monitoring * cardiology evaluated * continue Aspirin and Lipitor * ECHO shows ejection fraction 65-70% (3) Hyperammonemia: Code(s): E72.20 - Disorder of urea cycle metabolism, unspecified Status: Acute Assessment and Plan: * Repeat ammonia level in a.m. * Lactulose x1 * 07/24: Ammonia < 9 * resolved (4) Acute dehydration: Code(s): E86.0 - Dehydration Status: Acute Assessment and Plan: * Will consider IV fluids if patient is not eating (5) Elevated CK: Code(s): R74.8 - Abnormal levels of other serum enzymes Status: Acute Assessment and Plan: * Hydration * CK in a.m. * 380 -> 293 (6) Low TSH level: Code(s): R79.89 - Other specified abnormal findings of blood chemistry Status: Acute Assessment and Plan: * T4 1.22 wnl, T3 pending (7) Atrial fibrillation: Code(s): I48.91 - Unspecified atrial fibrillation Status: Acute Assessment and Plan: Restarted metoprolol 12.5 mg p.o. b.i.d. Plan DVT prophylaxis on Sq Lovenox Subjective Date/time seen: 07/24/25 08:50 Interval history: In the past few days, the patient was restrained. Patient started on olanzapine 5 mg p.o. q.d. from today due to agitation/aggression. The patient also received olanzapine web production assistant due to agitation/aggression. For a brief period of movement, the patient was somnolent and I advised to hold psychiatric medication. Spoke with the psychiatry team and advised to revisit for reconsideration of his medication. The patient was previously on Geodon, but it was discontinued by psychiatry due to a prolonged QTC interval. Also, psychiatry recommended olanzapine 5 mg q. Six p.o. for agitation. Discussed with her daughter about goals of care. As per the daughter, the patient was admitted to the hospital recently for aspiration pneumonia, and previously was living in assisted living. Still, unfortunately, due to his condition, he was transferred to the memory care unit. In regards to elevated troponin discussed with cardiology, no further intervention. Patient is medically cleared to discharge to Psychiatry Unit. Review of Systems Review of Systems: ROS unobtainable: Yes unobtainable due to mental status Exam Narrative: General: No acute distress HEENT: normocephalic, atraumatic. Mucous membranes dry. EOMI, PERRLA, bilateral sclera anicteric, no conjunctival injection. Neck supple without JVD, lymphadenopathy, or bruit. Respiratory: clear to ascultation bilaterally. No rales/rhonic/wheezes. Cardiovascular: Regular rate and rhythm, normal S1-S2 upon ascultation. No murmurs, rubs, or clicks. PMI is nondisplaced, capillary refill less than 3 second. Abdomen: Soft, round, no pulsatile masses, nondistended and nontender. No liban ound, no guarding. No CVA tenderness, no hepatosplenomegaly. Bowel sounds present to all four quadrants. No high pitch or tinkling sounds, resonant to percussion. Extremities: No cyanosis, clubbing, or edema present. Pulses are palpable 2/2. Active ROM to all four extremities. Neuro: Alert and orientated x 1. PERRLA. Follows simple commands. Cranial nerves 2-12 intact without focal deficit. Skin: Warm, dry, and intact, without rash, erythema, or lesion. Psych: pleasant on bedside exam Objective Data Vital Signs Vital Signs: Vital Signs - 24 hr 07/23/25 09:00 07/23/25 13:45 07/23/25 20:00 Temperature 97.6 F Pulse Rate 90 Respiratory Rate 16 Blood Pressure 159/71 H Pulse Oximetry 96 Oxygen Delivery Room Air Room Air 07/23/25 22:00 07/24/25 06:00 Temperature 97.7 F 97.7 F Pulse Rate 60 Respiratory Rate 18 18 Blood Pressure 154/98 H 151/83 H Pulse Oximetry 98 Oxygen Delivery Intake/Output Intake/Output: Intake & Output 07/21/25 07/22/25 07/23/25 07/24/25 23:59 23:59 23:59 23:59 Intake Total 790 690 7174 Output Total 950 1 Balance 920 -230 1138 Meds/Results Medications: Active Medications Generic Name Dose Route Start Last Admin Trade Name Freq PRN Reason Stop Dose Admin Acetaminophen 650 mg 07/20/25 13:52 07/24/25 08:38 Acetaminophen 325 Mg Tablet PO 650 mg Q4H PRN Administration Mild Pain (1-3) or Fever Aspirin 81 mg 07/22/25 09:00 07/24/25 08:38 Aspirin 81 Mg Enteric Tablet PO 81 mg QAM CORBIN Administration Clonidine HCl 1 patch 07/28/25 09:00 Clonidine 0.2 Mg/24 Hr Patch TRANSDERM WEEKLY CORBIN Docusate Sodium 100 mg 07/20/25 17:00 07/24/25 08:38 Docusate Sodium 100 Mg Capsule PO 100 mg BID CORBIN Administration Enoxaparin Sodium 40 mg 07/23/25 09:00 07/24/25 08:38 Enoxaparin 40 Mg/0.4 Ml Syringe SUB-Q 40 mg DAILY CORBIN Administration Olanzapine 5 mg 07/24/25 09:00 07/24/25 08:38 Olanzapine 5 Mg Tablet PO 5 mg QAM CORBIN Administration Quetiapine Fumarate 25 mg 07/22/25 10:00 07/24/25 08:38 Quetiapine Fumarate 25 Mg Tablet PO 25 mg TID CORBIN Administration Radiology Results: ITS Impressions Head CT 07/20/25 09:45 IMPRESSION: 1. Normal aging brain. 2. Chronic sinusitis. Chest X-Ray 07/20/25 09:49 Impression: No acute cardiopulmonary abnormality. Labs Labs: Laboratory Results - last 24 hr 07/21/25 07/24/25 04:43 04:45 WBC 9.3 RBC 4.17 L Hgb 11.9 L Hct 36.5 L MCV 87.5 MCH 28.5 MCHC 32.6 RDW 13.7 Plt Count 197 MPV 11.4 H Immature Gran % (Auto) 0.8 H Neut % (Auto) 76.2 H Lymph % (Auto) 11.5 L [place] % (Auto) 9.8 H Eos % (Auto) 1.3 Baso % (Auto) 0.4 Lymph # (Auto) 1.06 [place] # (Auto) 0.9 H Eos # (Auto) 0.1 Baso # (Auto) 0.0 Abs Immat Gran (auto) 0.07 H Absolute Neuts (auto) 7.1 H Absolute Nucleated RBC 0.000 Nucleated RBC % 0.0 Sodium 139 Potassium 3.1 L Chloride 106 Carbon Dioxide 26 Anion Gap 7 BUN 12 Creatinine 0.79 Estim Creat Clear Calc 78 Estimated GFR > 60 Glucose 115 H Calcium 8.5 Magnesium 1.6 Total Bilirubin 0.8 AST 32 ALT 26 Alkaline Phosphatase 63 Ammonia < 9 L Total Creatine Kinase 224 H Total Protein 6.0 L Albumin 3.3 L Free T3 pg/mL 2.7 Quality VTE Prophylaxis VTE prophylaxis: mechanical ordered Hospitalist MIPS Advance Care Plan I have confirmed that the patient's Advanced Care Plan is present, code status is documented, or surrogate decision maker is listed in patient medical record.: Yes Medication Reconciliation I have utilized all available resources to obtain, update and review the patients current medications (includes all prescriptions, OTC, herbals, ca nnabis, and nutritional supplements).: Yes
[2025-07-24] MEDS: METOPROLOL TARTRATE 12.5 MG TABLET PO ×2 (09:52→20:06)
[2025-07-24] MEDS: POTASSIUM CHLORIDE 20 MEQ ER TABLET 40 MEQ PO (09:52)
[2025-07-24 11:03] LABS: Troponin I 0.092 ng/mL (0.000-0.034)
--- NOTE | 2025-07-24 11:44 | PC.NURSE ---
This patient, Humberto Ku, was transferred to ICU 8 on 07/24/25 at 1144. Personal belongings sent with patient. Report given to Ngozi LAWRENCE. Appropriate documentation sent with patient.
[2025-07-24 12:14] LABS: Alveolar/Arterial O2 Gradient 32.8 mmHg; Carboxyhemoglobin 0.4 % THb (0-2.0); Fractional Inspired Oxygen 21 %; HCO3 ABG 24.8 mEq/l (22.0-26.0); Methemoglobin ABG 0.0 %THb (0-1.5); Oxygen Content ABG 16.7 %vol (16.0-22.0); Oxygen Saturation ABG 96.8 % (95.0-100.0); PCO2 ABG 31.6 mmHg (35.0-45.0); PO2 ABG 79.1 mmHg (80.0-100.0); PO2 FiO2 Ratio Arterial Blood 3.77 %; Reduced Hemoglobin 4.0 %THb (0-5.0)
[2025-07-24 12:31] LABS: Liters per Minute 0.0 LPM; Modified Allen's Test Pass; Site Drawn RIGHT RADIAL
--- NOTE | 2025-07-24 12:43 | P.PSYCH_ITS ---
Progress Note: A&P Assessment and Plan (1) Lewy body dementia with agitation: Code(s): G31.83 - Neurocognitive disorder with Lewy bodies; F02.811 - Dementia in other diseases classified elsewhere, unspecified severity, with agitation Status: Acute Assessment and Plan: Current EKG on 07/24 shows QTc 503 ms, an increase from previous measurements (453?469 ms). This prolongation significantly limits antipsychotic options and increases risk for cardiac arrhythmia. Given the neuroleptic sensitivity associated with LBD, the safest management focuses on non-pharmacologic interventions and cautious use of medications only when absolutely necessary. Plan * Continue to prioritize non-pharmacologic strategies as first-line interventions (quiet environment, structured routine, reorientation, adequate hydration, assisted feeding, sleep hygiene). * Maintain low-stimulation surroundings to prevent agitation. * Engage family and staff in consistent reassurance and behavioral redirection. Psychiatric Medications * Hold all QT-prolonging antipsychotics (e.g., Geodon, Seroquel at higher doses). * If agitation reemerges and nonpharmacologic measures fail: * Quetiapine 25 mg BID PRN may be used only if QTc <500 ms. * Olanzapine 2.5?5 mg IM PRN for short-term severe agitation if patient poses safety risk and QTc allows. * Avoid Depakote (valproic acid) due to previous hyperammonemia. * Consider Mirtazapine 7.5?15 mg HS for appetite and sleep regulation (minimal QT effect). * Avoid benzodiazepines unless necessary for short-term severe agitation. * Once medically stabilized, transfer to an inpatient psychiatric facility for ongoing behavioral management, medication reassessment, and continued use of non-pharmacologic strategies in a structured environment. Review of Systems Review of Systems: ROS unobtainable: Yes unobtainable due to mental status Psychiatric: Psychiatric: Reports confusion Exam Narrative: The patient is an 79-year-old male with a history of Lewy Body Dementia who was admitted to the hospital following an episode of acute aggression and agitation at his senior care facility after only one day of placement. On arrival, he was found to have elevated ammonia levels, dehydration, and evidence of delirium, all of which were likely contributing to his behavioral disturbance. Since admission, his medical status has improved with correction of metabolic abnormalities and supportive care. His ammonia level has normalized, and there have been no further episodes of aggression since being transferred to the ICU. During today?s evaluation, the patient was observed in bed being fed dinner by nursing staff. He consumed most of his meal and appeared calm and cooperative. When approached for assessment, he kept his eyes closed, with quivering lips, but did not provide verbal responses to questions. Nursing staff report that he slept most of the day and has remained non-agitated and behaviorally stable since the ICU transfer. Overall, his presentation suggests resolution of acute agitation with residual somnolence and limited responsiveness, likely related to ongoing recovery from delirium, medication effects, and general fatigue. Objective Data Vital Signs Vital Signs: Vital Signs - 24 hr 07/23/25 13:45 07/23/25 20:00 07/23/25 22:00 Temperature 97.6 F 97.7 F Pulse Rate 90 Respiratory Rate 16 18 Blood Pressure 159/71 H 154/98 H Pulse Oximetry 96 Oxygen Delivery Room Air 07/24/25 06:00 07/24/25 08:40 07/24/25 09:52 Temperature 97.7 F Pulse Rate 60 115 H Respiratory Rate 18 Blood Pressure 151/83 H Pulse Oximetry 98 Oxygen Delivery Room Air Intake/Output Intake/Output: Intake & Output 07/21/25 07/22/25 07/23/25 07/24/25 23:59 23:59 23:59 23:59 Intake Total 873 046 1164 300 Output Total 950 1 Balance 920 -230 1138 300 Meds/Results Medications: Active Medications Generic Name Dose Route Start Last Admin Trade Name Freq PRN Reason Stop Dose Admin Acetaminophen 650 mg 07/20/25 13:52 07/24/25 08:38 Acetaminophen 325 Mg Tablet PO 650 mg Q4H PRN Administration Mild Pain (1-3) or Fever Aspirin 81 mg 07/22/25 09:00 07/24/25 08:38 Aspirin 81 Mg Enteric Tablet PO 81 mg QAM CORBIN Administration Clonidine HCl 1 patch 07/28/25 09:00 Clonidine 0.2 Mg/24 Hr Patch TRANSDERM WEEKLY CORBIN Docusate Sodium 100 mg 07/20/25 17:00 07/24/25 08:38 Docusate Sodium 100 Mg Capsule PO 100 mg BID CORBIN Administration Enoxaparin Sodium 40 mg 07/23/25 09:00 07/24/25 08:38 Enoxaparin 40 Mg/0.4 Ml Syringe SUB-Q 40 mg DAILY CORBIN Administration Magnesium Sulfate 2 gm in 50 mls @ 25 mls/hr 07/24/25 12:04 Magnesium Sulf 2 Gm/Water 50ml IVPB 07/24/25 14:03 ONCE ONE Metoprolol Tartrate 12.5 mg 07/24/25 09:25 07/24/25 09:52 Metoprolol Tartrate 12.5 Mg Tablet PO 12.5 mg Q12HR CORBIN Administration Olanzapine 5 mg 07/24/25 09:00 07/24/25 08:38 Olanzapine 5 Mg Tablet PO 5 mg QAM CORBIN Administration Quetiapine Fumarate 25 mg 07/22/25 10:00 07/24/25 08:38 Quetiapine Fumarate 25 Mg Tablet PO 25 mg TID CORBIN Administration Radiology Results: ITS Impressions Head CT 07/20/25 09:45 IMPRESSION: 1. Normal aging brain. 2. Chronic sinusitis. Chest X-Ray 07/20/25 09:49 Impression: No acute cardiopulmonary abnormality. Labs Labs: Laboratory Results - last 24 hr 07/24/25 07/24/25 07/24/25 04:45 10:28 12:12 WBC 9.3 RBC 4.17 L Hgb 11.9 L Hct 36.5 L MCV 87.5 MCH 28.5 MCHC 32.6 RDW 13.7 Plt Count 197 MPV 11.4 H Immature Gran % (Auto) 0.8 H Neut % (Auto) 76.2 H Lymph % (Auto) 11.5 L [place] % (Auto) 9.8 H Eos % (Auto) 1.3 Baso % (Auto) 0.4 Lymph # (Auto) 1.06 [place] # (Auto) 0.9 H Eos # (Auto) 0.1 Baso # (Auto) 0.0 Abs Immat Gran (auto) 0.07 H Absolute Neuts (auto) 7.1 H Absolute Nucleated RBC 0.000 Nucleated RBC % 0.0 Puncture Site Right radial ABG pH 7.513 H* ABG pCO2 31.6 L ABG pO2 79.1 L ABG PO2/FiO2 Ratio 3.77 ABG HCO3 24.8 ABG O2 Saturation 96.8 ABG O2 Content 16.7 ABG Base Excess 2.4 A-a Gradient 32.8 Oxyhemoglobin 95.6 Carboxyhemoglobin 0.4 Methemoglobin 0.0 Reduced Hemoglobin 4.0 Total Hemoglobin 12.4 O2 Delivery Device Room air O2 Liters/Min 0.0 FiO2 21 Sodium 139 Potassium 3.1 L Chloride 106 Carbon Dioxide 26 Anion Gap 7 BUN 12 Creatinine 0.79 Estim Creat Clear Calc 78 Estimated GFR > 60 Glucose 115 H Calcium 8.5 Magnesium 1.6 Total Bilirubin 0.8 AST 32 ALT 26 Alkaline Phosphatase 63 Ammonia < 9 L Total Creatine Kinase 224 H Troponin I 0.092 H* Total Protein 6.0 L Albumin 3.3 L 07/24/25 12:15 WBC RBC Hgb Hct MCV MCH MCHC RDW Plt Count MPV Immature Gran % (Auto) Neut % (Auto) Lymph % (Auto) [place] % (Auto) Eos % (Auto) Baso % (Auto) Lymph # (Auto) [place] # (Auto) Eos # (Auto) Baso # (Auto) Abs Immat Gran (auto) Absolute Neuts (auto) Absolute Nucleated RBC Nucleated RBC % Puncture Site ABG pH ABG pCO2 ABG pO2 ABG PO2/FiO2 Ratio ABG HCO3 ABG O2 Saturation ABG O2 Content ABG Base Excess A-a Gradient Oxyhemoglobin Carboxyhemoglobin Methemoglobin Reduced Hemoglobin Total Hemoglobin O2 Delivery Device O2 Liters/Min FiO2 Sodium Cancelled Potassium Cancelled Chloride Cancelled Carbon Dioxide Cancelled Anion Gap Cancelled BUN Cancelled Creatinine Cancelled Estim Creat Clear Calc Cancelled Estimated GFR Cancelled Glucose Cancelled Calcium Cancelled Magnesium Total Bilirubin Cancelled AST Cancelled ALT Cancelled Alkaline Phosphatase Cancelled Ammonia Total Creatine Kinase Troponin I Total Protein Cancelled Albumin Cancelled Subjective Date/time seen: 07/24/25 12:43
[2025-07-24 12:45] LABS: Alanine Aminotransferase 26 U/L (6-50); Albumin Level 3.4 g/dL (3.5-5.1); Alkaline Phosphatase 57 U/L (38-126); Anion Gap 4 mmol/L (4-12); Aspartate Amino Transferase 42 U/L (17-59); Bilirubin,Total 0.8 mg/dL (0.2-1.3); Blood Urea Nitrogen 12 mg/dL (9-20); Calcium 8.7 mg/dL (8.4-10.2); Carbon Dioxide 29 mmol/L (22-30); Chloride 106 mmol/L (98-107); Estimated CRCL calculation 68 ml/min; Estimated Glomerular Filt Rate > 60; Glucose 93 mg/dL (65-110); Potassium 3.7 mmol/L (3.4-5.0); Sodium 139 mmol/L (137-145); Total Protein 6.3 g/dL (6.3-8.2)
[2025-07-24 13:21] LABS: Magnesium 1.7 mg/dL (1.6-2.3)
[2025-07-24] MEDS: MAGNESIUM SULF 2 GM/WATER 50ML 2 GM/50 ML BAG IVPB (13:48)
[2025-07-25] VITALS (12 sets, daily range): BP systolic 135–165; BP diastolic 61–90; PULSE 51–75; RESP 16–24; TEMP 37.1–37.6; O2SAT 95–99
[2025-07-25 04:43] LABS: Hematocrit 39.3 % (42.0-52.0); Hemoglobin 12.5 g/dL (14.0-18.0); Mean Corpuscular HGB Conc 31.8 g/dl (32-36); Mean Corpuscular Hemoglobin 28.5 pg (26-34); Mean Corpuscular Volume 89.7 fl (80-100); Platelet Count Result 198 k/mm3 (150-375); Red Blood Count 4.38 M/mm3 (4.6-6.20); White Blood Count 7.7 K/mm3 (4.5-10.0)
[2025-07-25 05:20] LABS: Alanine Aminotransferase 23 U/L (6-50); Albumin Level 3.3 g/dL (3.5-5.1); Alkaline Phosphatase 55 U/L (38-126); Anion Gap 6 mmol/L (4-12); Aspartate Amino Transferase 36 U/L (17-59); Bilirubin,Total 0.8 mg/dL (0.2-1.3); Blood Urea Nitrogen 14 mg/dL (9-20); Calcium 8.6 mg/dL (8.4-10.2); Carbon Dioxide 25 mmol/L (22-30); Chloride 109 mmol/L (98-107); Estimated CRCL calculation 67 ml/min; Estimated Glomerular Filt Rate > 60; Glucose 94 mg/dL (65-110); Potassium 4.0 mmol/L (3.4-5.0); Sodium 140 mmol/L (137-145); Total Protein 6.1 g/dL (6.3-8.2)
--- NOTE | 2025-07-25 07:00 | ECG_ITS ---
Test Date: 2025-07-25 07:21:39 Measurements Intervals [place] Rate: 58 P: 79 [place]: 192 QRS: -32 QRSD: 113 T: 10 QT: 441 QTc: 436 Interpretive Statements SINUS BRADYCARDIA WITH OCCASIONAL VENTRICULAR PREMATURE COMPLEXES LEFT AXIS DEVIATION INTRAVENTRICULAR CONDUCTION DELAY DELAYED PRECORDIAL R/S TRANSITION BORDERLINE ST-T WAVE ABNORMALITY- HIGH LATERAL LEADS BASELINE ARTIFACT- II, III, V1 BORDERLINE ECG Compared to ECG 07/24/2025 09:15:55 HEART RATE HAS DECREASED ATRIAL PREMATURE COMPLEXES NO LONGER PRESENT Ventricular premature complex(es) now present Electronically Signed On 07-25-2025 08:16:46 CDT by Med Carter D.O.
--- NOTE | 2025-07-25 07:50 | P.PNIM_ITS ---
Progress Note: A&P Assessment and Plan (1) Aggression: Code(s): R46.89 - Other symptoms and signs involving appearance and behavior Status: Acute Assessment and Plan: * Patient on soft restraints * Head CT with no acute finding * Hold Seroquel 25mg tid and Olanzapine * Valproic level pending * Daughter is working with the patient's facility to get pharmacogenetic testing done, will work with Gnena Chavez [phone], the director of the facility to have a cheek swab collected * Clonidine 0.2 Mg/24 Hr patch * Psych recs appreciated 07/25: Order EKG. Psychiatry the evaluated the patient and advised to hold all QT prolonging antipsychotics. As per psychiatry, the recommendation is if nonpharmacological measures fail can consider Seroquel 25 mg b.i.d. p.r.n. which can be used only if QTC less than 500 or olanzapine 2.5 mg-5 mg IM p.r.n. for short-term severe agitation. Avoid Depakote due to previous hyperammonemia. Consider mirtazapine 7.5-15 mg HS for appetite and sleep regulation. Patient is medically cleared to discharge to inpatient psychiatric facility. (2) Elevated troponin: Code(s): R79.89 - Other specified abnormal findings of blood chemistry Status: Acute Assessment and Plan: * Trend troponin * Telemetry monitoring * cardiology evaluated * continue Aspirin and Lipitor * ECHO shows ejection fraction 65-70% * As per cardiology no further intervention (3) Hyperammonemia: Code(s): E72.20 - Disorder of urea cycle metabolism, unspecified Status: Acute Assessment and Plan: * Repeat ammonia level in a.m. * Lactulose x1 * 07/24: Ammonia < 9 * resolved * Avoid Depakote (4) Acute dehydration: Code(s): E86.0 - Dehydration Status: Acute Assessment and Plan: * Will consider IV fluids if patient is not eating (5) Elevated CK: Code(s): R74.8 - Abnormal levels of other serum enzymes Status: Acute Assessment and Plan: * Hydration * CK in a.m. * 380 -> 293 (6) Low TSH level: Code(s): R79.89 - Other specified abnormal findings of blood chemistry Status: Acute Assessment and Plan: * T4 1.22 wnl, T3 pending (7) Atrial fibrillation: Code(s): I48.91 - Unspecified atrial fibrillation Status: Acute Assessment and Plan: Restarted metoprolol 12.5 mg p.o. b.i.d. Plan DVT prophylaxis on Sq Lovenox Subjective Date/time seen: 07/25/25 07:50 Interval history: Psychiatry re-evaluated the patient yesterday. Advised to hold all QT prolonging antipsychotics including Geodon, Seroquel at high doses. Patient is medically stable to transfer to inpatient psychiatric unit. Unfortunately [place] denied his acceptance. Patient is mildly agitated and given 1 dose of Seroquel 12.5 mg p.o. Review of Systems Review of Systems: ROS unobtainable: Yes unobtainable due to mental status Exam Narrative: General: No acute distress HEENT: normocephalic, atraumatic. Mucous membranes dry. EOMI, PERRLA, bilateral sclera anicteric, no conjunctival injection. Neck supple without JVD, lymphad enopathy, or bruit. Respiratory: clear to ascultation bilaterally. No rales/rhonic/wheezes. Cardiovascular: Regular rate and rhythm, normal S1-S2 upon ascultation. No murmurs, rubs, or clicks. PMI is nondisplaced, capillary refill less than 3 second. Abdomen: Soft, round, no pulsatile masses, nondistended and nontender. No rebound, no guarding. No CVA tenderness, no hepatosplenomegaly. Bowel sounds present to all four quadrants. No high pitch or tinkling sounds, resonant to percussion. Extremities: No cyanosis, clubbing, or edema present. Pulses are palpable 2/2. Active ROM to all four extremities. Neuro: Alert and orientated x 1. PERRLA. Follows simple commands. Cranial nerves 2-12 intact without focal deficit. Skin: Warm, dry, and intact, without rash, erythema, or lesion. Psych: pleasant on bedside exam Objective Data Vital Signs Vital Signs: Vital Signs - 24 hr 07/24/25 08:40 07/24/25 09:52 07/24/25 12:00 Temperature 97.8 F Pulse Rate 115 H 72 Respiratory Rate 14 Blood Pressure 123/76 Pulse Oximetry 98 Oxygen Delivery Room Air Oxygen Flow Rate 07/24/25 12:00 07/24/25 14:00 07/24/25 16:00 Temperature 97.8 F Pulse Rate 62 72 56 L Respiratory Rate 13 Blood Pressure 123/90 Pulse Oximetry 97 Oxygen Delivery Oxygen Flow Rate 07/24/25 16:00 07/24/25 18:00 07/24/25 20:00 Temperature Pulse Rate 61 66 Respiratory Rate Blood Pressure Pulse Oximetry Oxygen Delivery Room Air Oxygen Flow Rate 07/24/25 20:00 07/24/25 20:00 07/24/25 20:06 Temperature 98.4 F Pulse Rate 68 63 66 Respiratory Rate 18 Blood Pressure 151/76 H Pulse Oximetry 95 Oxygen Delivery Oxygen Flow Rate 07/24/25 22:00 07/25/25 00:00 07/25/25 00:00 Temperature Pulse Rate 60 65 Respiratory Rate Blood Pressure Pulse Oximetry Oxygen Delivery Room Air Oxygen Flow Rate 07/25/25 00:00 07/25/25 01:35 07/25/25 02:00 Temperature 99.6 F Pulse Rate 69 58 L Respiratory Rate 18 Blood Pressure 136/72 Pulse Oximetry 95 96 Oxygen Delivery Nasal Cannula Oxygen Flow Rate 2 07/25/25 04:00 07/25/25 04:00 07/25/25 04:00 Temperature 98.7 F Pulse Rate 56 L 51 L Respiratory Rate 16 Blood Pressure 135/61 Pulse Oximetry 95 Oxygen Delivery Room Air Oxygen Flow Rate 07/25/25 06:00 Temperature Pulse Rate 54 L Respiratory Rate Blood Pressure Pulse Oximetry Oxygen Delivery Oxygen Flow Rate Intake/Output Intake/Output: Intake & Output 07/22/25 07/23/25 07/24/25 07/25/25 23:59 23:59 23:59 23:59 Intake Total 720 1139 835 236 Output Total 950 1 0 250 Balance -230 1138 835 -14 Meds/Results Medications: Active Medications Generic Name Dose Route Start Last Admin Trade Name Freq PRN Reason Stop Dose Admin Acetaminophen 650 mg 07/20/25 13:52 07/24/25 08:38 Acetaminophen 325 Mg Tablet PO 650 mg Q4H PRN Administration Mild Pain (1-3) or Fever Aspirin 81 mg 07/22/25 09:00 07/24/25 08:38 Aspirin 81 Mg Enteric Tablet PO 81 mg QAM CORBIN Administration Clonidine HCl 1 patch 07/28/25 09:00 Clonidine 0.2 Mg/24 Hr Patch TRANSDERM WEEKLY CORBIN Docusate Sodium 100 mg 07/20/25 17:00 07/24/25 16:40 Docusate Sodium 100 Mg Capsule PO 100 mg BID CORBIN Administration Enoxaparin Sodium 40 mg 07/23/25 09:00 07/24/25 08:38 Enoxaparin 40 Mg/0.4 Ml Syringe SUB-Q 40 mg DAILY CORBIN Administration Metoprolol Tartrate 12.5 mg 07/24/25 09:25 07/24/25 20:06 Metoprolol Tartrate 12.5 Mg Tablet PO 12.5 mg Q12HR CORBIN Administration Olanzapine 5 mg 07/24/25 09:00 07/24/25 08:38 Olanzapine 5 Mg Tablet PO 5 mg On Hold: 07/24/25 15:29 QAM CORBIN Administration Quetiapine Fumarate 25 mg 07/22/25 10:00 07/24/25 15:53 Quetiapine Fumarate 25 Mg Tablet PO Not Given On Hold: 07/24/25 15:29 TID CORBIN Quetiapine Fumarate 25 mg 07/24/25 20:27 Quetiapine Fumarate 25 Mg Tablet PO Q12HR PRN Agitation Radiology Results: ITS Impressions Head CT 07/20/25 09:45 IMPRESSION: 1. Normal aging brain. 2. Chronic sinusitis. Chest X-Ray 07/20/25 09:49 Impression: No acute cardiopulmonary abnormality. Venous Doppler Study 07/24/25 17:42 Impression: Negative for DVT. Labs Labs: Laboratory Results - last 24 hr 07/20/25 07/24/25 07/24/25 11:49 10:28 12:12 WBC RBC Hgb Hct MCV MCH MCHC RDW Plt Count MPV Puncture Site Right radial ABG pH 7.513 H* ABG pCO2 31.6 L ABG pO2 79.1 L ABG PO2/FiO2 Ratio 3.77 ABG HCO3 24.8 ABG O2 Saturation 96.8 ABG O2 Content 16.7 ABG Base Excess 2.4 A-a Gradient 32.8 Oxyhemoglobin 95.6 Carboxyhemoglobin 0.4 Methemoglobin 0.0 Reduced Hemoglobin 4.0 Total Hemoglobin 12.4 O2 Delivery Device Room air O2 Liters/Min 0.0 FiO2 21 Sodium Potassium Chloride Carbon Dioxide Anion Gap BUN Creatinine Estim Creat Clear Calc Estimated GFR Glucose Calcium Phosphorus Magnesium Total Bilirubin AST ALT Alkaline Phosphatase Troponin I 0.092 H* Total Protein Albumin Free Valproic Acid 10.9 07/24/25 07/24/25 07/24/25 12:15 12:15 12:15 WBC RBC Hgb Hct MCV MCH MCHC RDW Plt Count MPV Puncture Site ABG pH ABG pCO2 ABG pO2 ABG PO2/FiO2 Ratio ABG HCO3 ABG O2 Saturation ABG O2 Content ABG Base Excess A-a Gradient Oxyhemoglobin Carboxyhemoglobin Methemoglobin Reduced Hemoglobin Total Hemoglobin O2 Delivery Device O2 Liters/Min FiO2 Sodium Cancelled 139 Potassium Cancelled 3.7 Chloride Cancelled Carbon Dioxide Anion Gap BUN Creatinine Estim Creat Clear Calc Estimated GFR Glucose Calcium Phosphorus Magnesium Total Bilirubin AST ALT Alkaline Phosphatase Troponin I Total Protein Albumin Free Valproic Acid 07/24/25 07/24/25 07/24/25 12:15 12:15 12:15 WBC RBC Hgb Hct MCV MCH MCHC RDW Plt Count MPV Puncture Site ABG pH ABG pCO2 ABG pO2 ABG PO2/FiO2 Ratio ABG HCO3 ABG O2 Saturation ABG O2 Content ABG Base Excess A-a Gradient Oxyhemoglobin Carboxyhemoglobin Methemoglobin Reduced Hemoglobin Total Hemoglobin O2 Delivery Device O2 Liters/Min FiO2 Sodium Potassium Chloride 106 Carbon Dioxide Cancelled 29 Anion Gap Cancelled 4 BUN Cancelled Creatinine Estim Creat Clear Calc Estimated GFR Glucose Calcium Phosphorus Magnesium Total Bilirubin AST ALT Alkaline Phosphatase Troponin I Total Protein Albumin Free Valproic Acid 07/24/25 07/24/25 07/24/25 12:15 12:15 12:15 WBC RBC Hgb Hct MCV MCH MCHC RDW Plt Count MPV Puncture Site ABG pH ABG pCO2 ABG pO2 ABG PO2/FiO2 Ratio ABG HCO3 ABG O2 Saturation ABG O2 Content ABG Base Excess A-a Gradient Oxyhemoglobin Carboxyhemoglobin Methemoglobin Reduced Hemoglobin Total Hemoglobin O2 Delivery Device O2 Liters/Min FiO2 Sodium Potassium Chloride Carbon Dioxide Anion Gap BUN 12 Creatinine Cancelled 0.91 Estim Creat Clear Calc Cancelled 68 Estimated GFR Cancelled Glucose Calcium Phosphorus Magnesium Total Bilirubin AST ALT Alkaline Phosphatase Troponin I Total Protein Albumin Free Valproic Acid 07/24/25 07/24/25 07/24/25 12:15 12:15 12:15 WBC RBC Hgb Hct MCV MCH MCHC RDW Plt Count MPV Puncture Site ABG pH ABG pCO2 ABG pO2 ABG PO2/FiO2 Ratio ABG HCO3 ABG O2 Saturation ABG O2 Content ABG Base Excess A-a Gradient Oxyhemoglobin Carboxyhemoglobin Methemoglobin Reduced Hemoglobin Total Hemoglobin O2 Delivery Device O2 Liters/Min FiO2 Sodium Potassium Chloride Carbon Dioxide Anion Gap BUN Creatinine Estim Creat Clear Calc Estimated GFR > 60 Glucose Cancelled 93 Calcium Cancelled 8.7 Phosphorus 2.8 Magnesium 1.7 Total Bilirubin Cancelled AST ALT Alkaline Phosphatase Troponin I Total Protein Albumin Free Valproic Acid 07/24/25 07/24/25 07/24/25 12:15 12:15 12:15 WBC RBC Hgb Hct MCV MCH MCHC RDW Plt Count MPV Puncture Site ABG pH ABG pCO2 ABG pO2 ABG PO2/FiO2 Ratio ABG HCO3 ABG O2 Saturation ABG O2 Content ABG Base Excess A-a Gradient Oxyhemoglobin Carboxyhemoglobin Methemoglobin Reduced Hemoglobin Total Hemoglobin O2 Delivery Device O2 Liters/Min FiO2 Sodium Potassium Chloride Carbon Dioxide Anion Gap BUN Creatinine Estim Creat Clear Calc Estimated GFR Glucose Calcium Phosphorus Magnesium Total Bilirubin 0.8 AST Cancelled 42 ALT Cancelled 26 Alkaline Phosphatase Cancelled Troponin I Total Protein Albumin Free Valproic Acid 07/24/25 07/24/25 07/24/25 12:15 12:15 12:15 WBC RBC Hgb Hct MCV MCH MCHC RDW Plt Count MPV Puncture Site ABG pH ABG pCO2 ABG pO2 ABG PO2/FiO2 Ratio ABG HCO3 ABG O2 Saturation ABG O2 Content ABG Base Excess A-a Gradient Oxyhemoglobin Carboxyhemoglobin Methemoglobin Reduced Hemoglobin Total Hemoglobin O2 Delivery Device O2 Liters/Min FiO2 Sodium Potassium Chloride Carbon Dioxide Anion Gap BUN Creatinine Estim Creat Clear Calc Estimated GFR Glucose Calcium Phosphorus Magnesium Total Bilirubin AST ALT Alkaline Phosphatase 57 Troponin I Total Protein Cancelled 6.3 Albumin Cancelled 3.4 L Free Valproic Acid 07/25/25 04:25 WBC 7.7 RBC 4.38 L Hgb 12.5 L Hct 39.3 L MCV 89.7 MCH 28.5 MCHC 31.8 L RDW 13.8 Plt Count 198 MPV 11.4 H Puncture Site ABG pH ABG pCO2 ABG pO2 ABG PO2/FiO2 Ratio ABG HCO3 ABG O2 Saturation ABG O2 Content ABG Base Excess A-a Gradient Oxyhemoglobin Carboxyhemoglobin Methemoglobin Reduced Hemoglobin Total Hemoglobin O2 Delivery Device O2 Liters/Min FiO2 Sodium 140 Potassium 4.0 Chloride 109 H Carbon Dioxide 25 Anion Gap 6 BUN 14 Creatinine 0.93 Estim Creat Clear Calc 67 Estimated GFR > 60 Glucose 94 Calcium 8.6 Phosphorus Magnesium Total Bilirubin 0.8 AST 36 ALT 23 Alkaline Phosphatase 55 Troponin I Total Protein 6.1 L Albumin 3.3 L Free Valproic Acid Quality VTE Prophylaxis VTE prophylaxis: mechanical ordered Hospitalist MIPS Advance Care Plan I have confirmed that the patient's Advanced Care Plan is present, code status is documented, or surrogate decision maker is listed in patient medical record.: Yes Medication Reconciliation I have utilized all available resources to obtain, update and review the patients current medications (includes all prescriptions, OTC, herbals, cannabis, and nutritional supplements).: Yes
[2025-07-25] MEDS: ENOXAPARIN 40 MG/0.4 ML SYRINGE SUB-Q (07:56)
[2025-07-25] MEDS: METOPROLOL TARTRATE 12.5 MG TABLET PO (07:56)
[2025-07-25] MEDS: ASPIRIN 81 MG ENTERIC TABLET PO (07:56)
[2025-07-25] MEDS: DOCUSATE SODIUM 100 MG CAPSULE PO ×2 (07:56→16:52)
--- NOTE | 2025-07-25 08:04 | PM.PNCARD ---
Progress Note: A&P Assessment and Plan (1) Elevated troponin: Code(s): R79.89 - Other specified abnormal findings of blood chemistry Status: Acute Assessment and Plan: Only slightly elevated up at .058 07/24/25 Echo: Normal. Stopped Lovenox. No further cardiac workup is needed in an asymptomatic patient. Will sign off, please call with any questions. (2) Lewy body dementia with agitation: Code(s): G31.83 - Neurocognitive disorder with Lewy bodies; F02.811 - Dementia in other diseases classified elsewhere, unspecified severity, with agitation Status: Acute Assessment and Plan: Psych following. (3) Tachycardia: Code(s): R00.0 - Tachycardia, unspecified Status: Acute Assessment and Plan: Now in normal sinus rhythm. No atrial fibrillation, only PAC's and PVC's. Restarted home medication of Metoprolol Tarate 12.5 mg BID. Subjective Date/time seen: 07/25/25 08:04 Interval history: Denies chest pain or sob. He is on soft restraints and a sitter at bedside. Exam Const: General: cooperative, healthy appearing and comfortable Orientation/consciousness: oriented to person, oriented to place and oriented to time Resp: Auscultation: clear to auscultation bilaterally, no crackles, no rales, no rhonchi and no wheezes Cardio: Rate: regular rate Rhythm: regular rhythm Heart sounds: no murmurs Peripheral pulses: dorsalis pedis present Neuro: General: oriented to person, oriented to place and oriented to time Extrem: Right lower extremity: no edema Left lower extremity: no edema Objective Data Vital Signs Vital Signs: Vital Signs - 24 hr 07/24/25 08:40 07/24/25 09:52 07/24/25 12:00 Temperature 97.8 F Pulse Rate 115 H 72 Respiratory Rate 14 Blood Pressure 123/76 Pulse Oximetry 98 Oxygen Delivery Room Air Oxygen Flow Rate 07/24/25 12:00 07/24/25 14:00 07/24/25 16:00 Temperature 97.8 F Pulse Rate 62 72 56 L Respiratory Rate 13 Blood Pressure 123/90 Pulse Oximetry 97 Oxygen Delivery Oxygen Flow Rate 07/24/25 16:00 07/24/25 18:00 07/24/25 20:00 Temperature Pulse Rate 61 66 Respiratory Rate Blood Pressure Pulse Oximetry Oxygen Delivery Room Air Oxygen Flow Rate 07/24/25 20:00 07/24/25 20:00 07/24/25 20:06 Temperature 98.4 F Pulse Rate 68 63 66 Respiratory Rate 18 Blood Pressure 151/76 H Pulse Oximetry 95 Oxygen Delivery Oxygen Flow Rate 07/24/25 22:00 07/25/25 00:00 07/25/25 00:00 Temperature Pulse Rate 60 65 Respiratory Rate Blood Pressure Pulse Oximetry Oxygen Delivery Room Air Oxygen Flow Rate 07/25/25 00:00 07/25/25 01:35 07/25/25 02:00 Temperature 99.6 F Pulse Rate 69 58 L Respiratory Rate 18 Blood Pressure 136/72 Pulse Oximetry 95 96 Oxygen Delivery Nasal Cannula Oxygen Flow Rate 2 07/25/25 04:00 07/25/25 04:00 07/25/25 04:00 Temperature 98.7 F Pulse Rate 56 L 51 L Respiratory Rate 16 Blood Pressure 135/61 Pulse Oximetry 95 Oxygen Delivery Room Air Oxygen Flow Rate 07/25/25 06:00 07/25/25 07:56 Temperature Pulse Rate 54 L 75 Respiratory Rate Blood Pressure Pulse Oximetry Oxygen Delivery Oxygen Flow Rate Intake/Output Intake/Output: Intake & Output 07/22/25 07/23/25 07/24/25 07/25/25 23:59 23:59 23:59 23:59 Intake Total 720 1139 835 236 Output Total 950 1 0 250 Balance -230 1138 835 -14 Meds/Results Medications: Active Medications Generic Name Dose Route Start Last Admin Trade Name Freq PRN Reason Stop Dose Admin Acetaminophen 650 mg 07/20/25 13:52 07/24/25 08:38 Acetaminophen 325 Mg Tablet PO 650 mg Q4H PRN Administration Mild Pain (1-3) or Fever Aspirin 81 mg 07/22/25 09:00 07/25/25 07:56 Aspirin 81 Mg Enteric Tablet PO 81 mg QAM CORBIN Administration Clonidine HCl 1 patch 07/28/25 09:00 Clonidine 0.2 Mg/24 Hr Patch TRANSDERM WEEKLY CORBIN Docusate Sodium 100 mg 07/20/25 17:00 07/25/25 07:56 Docusate Sodium 100 Mg Capsule PO 100 mg BID CORBIN Administration Enoxaparin Sodium 40 mg 07/23/25 09:00 07/25/25 07:56 Enoxaparin 40 Mg/0.4 Ml Syringe SUB-Q 40 mg DAILY CORBIN Administration Metoprolol Tartrate 12.5 mg 07/24/25 09:25 07/25/25 07:56 Metoprolol Tartrate 12.5 Mg Tablet PO 12.5 mg Q12HR CORBIN Administration Olanzapine 5 mg 07/24/25 09:00 07/24/25 08:38 Olanzapine 5 Mg Tablet PO 5 mg On Hold: 07/24/25 15:29 QAM CORBIN Administration Quetiapine Fumarate 25 mg 07/22/25 10:00 07/24/25 15:53 Quetiapine Fumarate 25 Mg Tablet PO Not Given On Hold: 07/24/25 15:29 TID CORBIN Quetiapine Fumarate 25 mg 07/24/25 20:27 Quetiapine Fumarate 25 Mg Tablet PO Q12HR PRN Agitation Radiology Results: ITS Impressions Head CT 07/20/25 09:45 IMPRESSION: 1. Normal aging brain. 2. Chronic sinusitis. Chest X-Ray 07/20/25 09:49 Impression: No acute cardiopulmonary abnormality. Venous Doppler Study 07/24/25 17:42 Impression: Negative for DVT. Labs Labs: Laboratory Results - last 24 hr 07/20/25 07/24/25 07/24/25 11:49 10:28 12:12 WBC RBC Hgb Hct MCV MCH MCHC RDW Plt Count MPV Puncture Site Right radial ABG pH 7.513 H* ABG pCO2 31.6 L ABG pO2 79.1 L ABG PO2/FiO2 Ratio 3.77 ABG HCO3 24.8 ABG O2 Saturation 96.8 ABG O2 Content 16.7 ABG Base Excess 2.4 A-a Gradient 32.8 Oxyhemoglobin 95.6 Carboxyhemoglobin 0.4 Methemoglobin 0.0 Reduced Hemoglobin 4.0 Total Hemoglobin 12.4 O2 Delivery Device Room air O2 Liters/Min 0.0 FiO2 21 Sodium Potassium Chloride Carbon Dioxide Anion Gap BUN Creatinine Estim Creat Clear Calc Estimated GFR Glucose Calcium Phosphorus Magnesium Total Bilirubin AST ALT Alkaline Phosphatase Troponin I 0.092 H* Total Protein Albumin Free Valproic Acid 10.9 07/24/25 07/24/25 07/24/25 12:15 12:15 12:15 WBC RBC Hgb Hct MCV MCH MCHC RDW Plt Count MPV Puncture Site ABG pH ABG pCO2 ABG pO2 ABG PO2/FiO2 Ratio ABG HCO3 ABG O2 Saturation ABG O2 Content ABG Base Excess A-a Gradient Oxyhemoglobin Carboxyhemoglobin Methemoglobin Reduced Hemoglobin Total Hemoglobin O2 Delivery Device O2 Liters/Min FiO2 Sodium Cancelled 139 Potassium Cancelled 3.7 Chloride Cancelled Carbon Dioxide Anion Gap BUN Creatinine Estim Creat Clear Calc Estimated GFR Glucose Calcium Phosphorus Magnesium Total Bilirubin AST ALT Alkaline Phosphatase Troponin I Total Protein Albumin Free Valproic Acid 07/24/25 07/24/25 07/24/25 12:15 12:15 12:15 WBC RBC Hgb Hct MCV MCH MCHC RDW Plt Count MPV Puncture Site ABG pH ABG pCO2 ABG pO2 ABG PO2/FiO2 Ratio ABG HCO3 ABG O2 Saturation ABG O2 Content ABG Base Excess A-a Gradient Oxyhemoglobin Carboxyhemoglobin Methemoglobin Reduced Hemoglobin Total Hemoglobin O2 Delivery Device O2 Liters/Min FiO2 Sodium Potassium Chloride 106 Carbon Dioxide Cancelled 29 Anion Gap Cancelled 4 BUN Cancelled Creatinine Estim Creat Clear Calc Estimated GFR Glucose Calcium Phosphorus Magnesium Total Bilirubin AST ALT Alkaline Phosphatase Troponin I Total Protein Albumin Free Valproic Acid 07/24/25 07/24/25 07/24/25 12:15 12:15 12:15 WBC RBC Hgb Hct MCV MCH MCHC RDW Plt Count MPV Puncture Site ABG pH ABG pCO2 ABG pO2 ABG PO2/FiO2 Ratio ABG HCO3 ABG O2 Saturation ABG O2 Content ABG Base Excess A-a Gradient Oxyhemoglobin Carboxyhemoglobin Methemoglobin Reduced Hemoglobin Total Hemoglobin O2 Delivery Device O2 Liters/Min FiO2 Sodium Potassium Chloride Carbon Dioxide Anion Gap BUN 12 Creatinine Cancelled 0.91 Estim Creat Clear Calc Cancelled 68 Estimated GFR Cancelled Glucose Calcium Phosphorus Magnesium Total Bilirubin AST ALT Alkaline Phosphatase Troponin I Total Protein Albumin Free Valproic Acid 07/24/25 07/24/25 07/24/25 12:15 12:15 12:15 WBC RBC Hgb Hct MCV MCH MCHC RDW Plt Count MPV Puncture Site ABG pH ABG pCO2 ABG pO2 ABG PO2/FiO2 Ratio ABG HCO3 ABG O2 Saturation ABG O2 Content ABG Base Excess A-a Gradient Oxyhemoglobin Carboxyhemoglobin Methemoglobin Reduced Hemoglobin Total Hemoglobin O2 Delivery Device O2 Liters/Min FiO2 Sodium Potassium Chloride Carbon Dioxide Anion Gap BUN Creatinine Estim Creat Clear Calc Estimated GFR > 60 Glucose Cancelled 93 Calcium Cancelled 8.7 Phosphorus 2.8 Magnesium 1.7 Total Bilirubin Cancelled AST ALT Alkaline Phosphatase Troponin I Total Protein Albumin Free Valproic Acid 07/24/25 07/24/25 07/24/25 12:15 12:15 12:15 WBC RBC Hgb Hct MCV MCH MCHC RDW Plt Count MPV Puncture Site ABG pH ABG pCO2 ABG pO2 ABG PO2/FiO2 Ratio ABG HCO3 ABG O2 Saturation ABG O2 Content ABG Base Excess A-a Gradient Oxyhemoglobin Carboxyhemoglobin Methemoglobin Reduced Hemoglobin Total Hemoglobin O2 Delivery Device O2 Liters/Min FiO2 Sodium Potassium Chloride Carbon Dioxide Anion Gap BUN Creatinine Estim Creat Clear Calc Estimated GFR Glucose Calcium Phosphorus Magnesium Total Bilirubin 0.8 AST Cancelled 42 ALT Cancelled 26 Alkaline Phosphatase Cancelled Troponin I Total Protein Albumin Free Valproic Acid 07/24/25 07/24/25 07/24/25 12:15 12:15 12:15 WBC RBC Hgb Hct MCV MCH MCHC RDW Plt Count MPV Puncture Site ABG pH ABG pCO2 ABG pO2 ABG PO2/FiO2 Ratio ABG HCO3 ABG O2 Saturation ABG O2 Content ABG Base Excess A-a Gradient Oxyhemoglobin Carboxyhemoglobin Methemoglobin Reduced Hemoglobin Total Hemoglobin O2 Delivery Device O2 Liters/Min FiO2 Sodium Potassium Chloride Carbon Dioxide Anion Gap BUN Creatinine Estim Creat Clear Calc Estimated GFR Glucose Calcium Phosphorus Magnesium Total Bilirubin AST ALT Alkaline Phosphatase 57 Troponin I Total Protein Cancelled 6.3 Albumin Cancelled 3.4 L Free Valproic Acid 07/25/25 04:25 WBC 7.7 RBC 4.38 L Hgb 12.5 L Hct 39.3 L MCV 89.7 MCH 28.5 MCHC 31.8 L RDW 13.8 Plt Count 198 MPV 11.4 H Puncture Site ABG pH ABG pCO2 ABG pO2 ABG PO2/FiO2 Ratio ABG HCO3 ABG O2 Saturation ABG O2 Content ABG Base Excess A-a Gradient Oxyhemoglobin Carboxyhemoglobin Methemoglobin Reduced Hemoglobin Total Hemoglobin O2 Delivery Device O2 Liters/Min FiO2 Sodium 140 Potassium 4.0 Chloride 109 H Carbon Dioxide 25 Anion Gap 6 BUN 14 Creatinine 0.93 Estim Creat Clear Calc 67 Estimated GFR > 60 Glucose 94 Calcium 8.6 Phosphorus Magnesium Total Bilirubin 0.8 AST 36 ALT 23 Alkaline Phosphatase 55 Troponin I Total Protein 6.1 L Albumin 3.3 L Free Valproic Acid
[2025-07-25] MEDS: QUEtiapine FUMARATE 12.5 MG TABLET PO (16:51)
[2025-07-26] VITALS (11 sets, daily range): BP systolic 120–181; BP diastolic 68–108; PULSE 69–120; RESP 11–27; TEMP 36.8–37.3; O2SAT 94–100
[2025-07-26] MEDS: OLANZapine 5 MG, WATER, STERILE FOR INJECTION 2.1 ML IM (04:15)
--- NOTE | 2025-07-26 07:00 | ECG_ITS ---
Test Date: 2025-07-26 06:44:22 Measurements Intervals [place] Rate: 81 P: 76 MN: 179 QRS: -31 QRSD: 116 T: 9 QT: 387 QTc: 451 Interpretive Statements SINUS RHYTHM WITH OCCASIONAL VENTRICULAR PREMATURE COMPLEXES WITH FREQUENT SUPRAVENTRICULAR PREMATURE COMPLEXES LEFT AXIS DEVIATION INTRAVENTRICULAR CONDUCTION DELAY VOLTAGE CRITERIA FOR LVH CANNOT R/O SEPTAL INFARCT, AGE INDETERMINATE BASELINE ARTIFACT- I, II, III, AVR, AVL, AVF, V1-V6 ABNORMAL ECG Compared to ECG 07/25/2025 07:21:39 HEART RATE HAS INCREASED Electronically Signed On 07-26-2025 07:48:37 CDT by Med Carter D.O.
[2025-07-26] MEDS: ASPIRIN 81 MG ENTERIC TABLET PO (09:49)
[2025-07-26] MEDS: METOPROLOL TARTRATE 12.5 MG TABLET PO ×2 (09:50→20:23)
[2025-07-26] MEDS: ENOXAPARIN 40 MG/0.4 ML SYRINGE SUB-Q (09:50)
[2025-07-26] MEDS: diazePAM INJ (*CRX) 10 MG/2 ML SYRINGE 5 MG IV PUSH (09:50)
[2025-07-26] MEDS: DOCUSATE SODIUM 100 MG CAPSULE PO (09:50)
--- NOTE | 2025-07-26 16:59 | P.PNIM_ITS ---
Progress Note: A&P Assessment and Plan (1) Aggression: Code(s): R46.89 - Other symptoms and signs involving appearance and behavior Status: Acute Assessment and Plan: * Patient on soft restraints * Head CT with no acute finding * Hold Seroquel 25mg tid and Olanzapine * Valproic level pending * Daughter is working with the patient's facility to get pharmacogenetic testing done, will work with Genna Chavez [phone], the director of the facility to have a cheek swab collected * Clonidine 0.2 Mg/24 Hr patch * Psych recs appreciated 07/25: Order EKG. Psychiatry the evaluated the patient and advised to hold all QT prolonging antipsychotics. As per psychiatry, the recommendation is if nonpharmacological measures fail can consider Seroquel 25 mg b.i.d. p.r.n. which can be used only if QTC less than 500 or olanzapine 2.5 mg-5 mg IM p.r.n. for short-term severe agitation. Avoid Depakote due to previous hyperammonemia. Consider mirtazapine 7.5-15 mg HS for appetite and sleep regulation. Patient is medically cleared to discharge to inpatient psychiatric facility. 07/26: Same as above, patient received Zyprexa and Seroquel in the health insurance sales agent (given by beamer hand). Ordered 1 dose of diazepam 5 mg IV x1 (2) Elevated troponin: Code(s): R79.89 - Other specified abnormal findings of blood chemistry Status: Acute Assessment and Plan: * Trend troponin * Telemetry monitoring * cardiology evaluated * continue Aspirin and Lipitor * ECHO shows ejection fraction 65-70% * As per cardiology no further intervention (3) Hyperammonemia: Code(s): E72.20 - Disorder of urea cycle metabolism, unspecified Status: Acute Assessment and Plan: * Repeat ammonia level in a.m. * Lactulose x1 * 07/24: Ammonia < 9 * resolved * Avoid Depakote (4) Acute dehydration: Code(s): E86.0 - Dehydration Status: Acute Assessment and Plan: * Will consider IV fluids if patient is not eating (5) Elevated CK: Code(s): R74.8 - Abnormal levels of other serum enzymes Status: Acute Assessment and Plan: * Hydration * CK in a.m. * 380 -> 293 (6) Low TSH level: Code(s): R79.89 - Other specified abnormal findings of blood chemistry Status: Acute Assessment and Plan: * T4 1.22 wnl, T3 pending (7) Atrial fibrillation: Code(s): I48.91 - Unspecified atrial fibrillation Status: Acute Assessment and Plan: Restarted metoprolol 12.5 mg p.o. b.i.d. Plan DVT prophylaxis on Sq Lovenox Subjective Date/time seen: 07/26/25 16:59 Interval history: Patient had episode of agitation this morning and was given diazepam 5 mg x1. Care coordination working on placement. Called POA his daughter and left VM Review of Systems Review of Systems: ROS unobtainable: Yes unobtainable due to mental status Exam Narrative: General: No acute distress HEENT: normocephalic, atraumatic. Mucous membranes dry. EOMI, PERRLA, bilateral sclera anicteric, no conjunctival injection. Neck supple without JVD, lymphaden opathy, or bruit. Respiratory: clear to ascultation bilaterally. No rales/rhonic/wheezes. Cardiovascular: Regular rate and rhythm, normal S1-S2 upon ascultation. No murmurs, rubs, or clicks. PMI is nondisplaced, capillary refill less than 3 second. Abdomen: Soft, round, no pulsatile masses, nondistended and nontender. No rebound, no guarding. No CVA tenderness, no hepatosplenomegaly. Bowel sounds present to all four quadrants. No high pitch or tinkling sounds, resonant to percussion. Extremities: No cyanosis, clubbing, or edema present. Pulses are palpable 2/2. Active ROM to all four extremities. Neuro: Alert and orientated x 1. PERRLA. Follows simple commands. Cranial nerves 2-12 intact without focal deficit. Skin: Warm, dry, and intact, without rash, erythema, or lesion. Psych: pleasant on bedside exam Objective Data Vital Signs Vital Signs: Vital Signs - 24 hr 07/25/25 20:00 07/25/25 20:00 07/25/25 20:28 Temperature 98.7 F Pulse Rate 56 L 56 L Respiratory Rate 18 Blood Pressure 165/90 H Pulse Oximetry 99 Oxygen Delivery Room Air 07/26/25 04:15 07/26/25 04:30 07/26/25 04:45 Temperature 98.7 F 99.0 F 98.6 F Pulse Rate 79 74 69 Respiratory Rate 22 H 11 L 13 Blood Pressure 139/68 128/70 120/81 Pulse Oximetry 96 94 94 Oxygen Delivery 07/26/25 05:00 07/26/25 05:15 07/26/25 06:15 Temperature 98.8 F 99.1 F 98.9 F Pulse Rate 120 H 88 91 Respiratory Rate 27 H 15 18 Blood Pressure 158/108 H 164/81 H 172/92 H Pulse Oximetry 100 94 95 Oxygen Delivery 07/26/25 07:15 07/26/25 08:00 07/26/25 08:00 Temperature 99.0 F 99 F Pulse Rate 105 H 71 Respiratory Rate 18 18 Blood Pressure 165/99 H 181/88 H Pulse Oximetry 96 96 Oxygen Delivery Room Air 07/26/25 09:50 Temperature Pulse Rate 87 Respiratory Rate Blood Pressure Pulse Oximetry Oxygen Delivery Intake/Output Intake/Output: Intake & Output 07/23/25 07/24/25 07/25/25 07/26/25 23:59 23:59 23:59 23:59 Intake Total 0469 470 1958 580 Output Total 1 0 500 Balance 1138 835 856 580 Meds/Results Medications: Active Medications Generic Name Dose Route Start Last Admin Trade Name Freq PRN Reason Stop Dose Admin Acetaminophen 650 mg 07/20/25 13:52 07/24/25 08:38 Acetaminophen 325 Mg Tablet PO 650 mg Q4H PRN Administration Mild Pain (1-3) or Fever Aspirin 81 mg 07/22/25 09:00 07/26/25 09:49 Aspirin 81 Mg Enteric Tablet PO 81 mg QAM CORBIN Administration Clonidine HCl 1 patch 07/28/25 09:00 Clonidine 0.2 Mg/24 Hr Patch TRANSDERM WEEKLY CORBIN Docusate Sodium 100 mg 07/20/25 17:00 07/26/25 09:50 Docusate Sodium 100 Mg Capsule PO 100 mg BID CORBIN Administration Enoxaparin Sodium 40 mg 07/23/25 09:00 07/26/25 09:50 Enoxaparin 40 Mg/0.4 Ml Syringe SUB-Q 40 mg DAILY CORBIN Administration Metoprolol Tartrate 12.5 mg 07/24/25 09:25 07/26/25 09:50 Metoprolol Tartrate 12.5 Mg Tablet PO 12.5 mg Q12HR CORBIN Administration Olanzapine 5 mg 07/24/25 09:00 07/24/25 08:38 Olanzapine 5 Mg Tablet PO 5 mg On Hold: 07/24/25 15:29 QAM CORBIN Administration Quetiapine Fumarate 25 mg 07/22/25 10:00 07/24/25 15:53 Quetiapine Fumarate 25 Mg Tablet PO Not Given On Hold: 07/24/25 15:29 TID CORBIN Quetiapine Fumarate 25 mg 07/24/25 20:27 07/26/25 15:47 Quetiapine Fumarate 25 Mg Tablet PO 25 mg Q12HR PRN Administration Agitation Radiology Results: ITS Impressions Head CT 07/20/25 09:45 IMPRESSION: 1. Normal aging brain. 2. Chronic sinusitis. Chest X-Ray 07/20/25 09:49 Impression: No acute cardiopulmonary abnormality. Venous Doppler Study 07/24/25 17:42 Impression: Negative for DVT. Quality VTE Prophylaxis VTE prophylaxis: mechanical ordered Hospitalist [facility] Advance Care Plan I have confirmed that the patient's Advanced Care Plan is present, code status is documented, or surrogate decision maker is listed in patient medical record.: Yes Medication Reconciliation I have utilized all available resources to obtain, update and review the patients current medications (includes all prescriptions, OTC, herbals, cannabis, and nutritional supplements).: Yes
[2025-07-27 03:38] LABS: Hematocrit 35.8 % (42.0-52.0); Hemoglobin 11.9 g/dL (14.0-18.0); Mean Corpuscular HGB Conc 33.2 g/dl (32-36); Mean Corpuscular Hemoglobin 29.0 pg (26-34); Mean Corpuscular Volume 87.3 fl (80-100); Platelet Count Result 213 k/mm3 (150-375); Red Blood Count 4.10 M/mm3 (4.6-6.20); White Blood Count 8.0 K/mm3 (4.5-10.0)
[2025-07-27 03:47] LABS: Alanine Aminotransferase 28 U/L (6-50); Albumin Level 3.2 g/dL (3.5-5.1); Alkaline Phosphatase 58 U/L (38-126); Anion Gap 6 mmol/L (4-12); Aspartate Amino Transferase 35 U/L (17-59); Bilirubin,Total 0.7 mg/dL (0.2-1.3); Blood Urea Nitrogen 14 mg/dL (9-20); Calcium 8.3 mg/dL (8.4-10.2); Carbon Dioxide 25 mmol/L (22-30); Chloride 107 mmol/L (98-107); Estimated CRCL calculation 75 ml/min; Estimated Glomerular Filt Rate > 60; Glucose 102 mg/dL (65-110); Potassium 3.4 mmol/L (3.4-5.0); Sodium 138 mmol/L (137-145); Total Protein 5.9 g/dL (6.3-8.2)
[2025-07-27 08:00] VITALS: BP 170/89; PULSE 92; RESP 18; TEMP 36.8; O2SAT 95
--- NOTE | 2025-07-27 10:18 | P.PNIM_ITS ---
Progress Note: A&P Assessment and Plan (1) Aggression: Code(s): R46.89 - Other symptoms and signs involving appearance and behavior Status: Acute Assessment and Plan: * Patient on soft restraints * Head CT with no acute finding * Hold Seroquel 25mg tid and Olanzapine * Valproic level pending * Daughter is working with the patient's facility to get pharmacogenetic testing done, will work with Genna Chavez [phone], the director of the facility to have a cheek swab collected * Clonidine 0.2 Mg/24 Hr patch * Psych recs appreciated 07/25: Order EKG. Psychiatry the evaluated the patient and advised to hold all QT prolonging antipsychotics. As per psychiatry, the recommendation is if nonpharmacological measures fail can consider Seroquel 25 mg b.i.d. p.r.n. which can be used only if QTC less than 500 or olanzapine 2.5 mg-5 mg IM p.r.n. for short-term severe agitation. Avoid Depakote due to previous hyperammonemia. Consider mirtazapine 7.5-15 mg HS for appetite and sleep regulation. Patient is medically cleared to discharge to inpatient psychiatric facility. 07/26: Same as above, patient received Zyprexa and Seroquel in the high energy forming equipment operator (given by babbitt spinner). Ordered 1 dose of diazepam 5 mg IV x1 07/27:Psychiatry the evaluated the patient and started patient on Zyprexa 5 mg p.o. HS and Seroquel 25 mg p.o. b.i.d. p.r.n. (2) Elevated troponin: Code(s): R79.89 - Other specified abnormal findings of blood chemistry Status: Acute Assessment and Plan: * Trend troponin * Telemetry monitoring * cardiology evaluated * continue Aspirin and Lipitor * ECHO shows ejection fraction 65-70% * As per cardiology no further intervention (3) Hyperammonemia: Code(s): E72.20 - Disorder of urea cycle metabolism, unspecified Status: Acute Assessment and Plan: * Repeat ammonia level in a.m. * Lactulose x1 * 07/24: Ammonia < 9 * resolved * Avoid Depakote (4) Acute dehydration: Code(s): E86.0 - Dehydration Status: Acute Assessment and Plan: * Will consider IV fluids if patient is not eating (5) Elevated CK: Code(s): R74.8 - Abnormal levels of other serum enzymes Status: Acute Assessment and Plan: * Hydration * CK in a.m. * 380 -> 293 (6) Low TSH level: Code(s): R79.89 - Other specified abnormal findings of blood chemistry Status: Acute Assessment and Plan: * T4 1.22 wnl, T3 pending (7) Atrial fibrillation: Code(s): I48.91 - Unspecified atrial fibrillation Status: Acute Assessment and Plan: Restarted metoprolol 12.5 mg p.o. b.i.d. Plan DVT prophylaxis on Sq Lovenox Subjective Date/time seen: 07/27/25 10:18 Interval history: Called yesterday her POA and left voicemail. Will again discuss goals of care with the daughter. Psychiatry re-evaluated the patient and started patient on Zyprexa 5 mg p.o. HS and Seroquel 25 mg p.o. b.i.d. p.r.n. Review of Systems Review of Systems: ROS unobtainable: Yes unobtainable due to mental status Exam Narrative: General: No acute distress HEENT: normocephalic, atraumatic. Mucous membranes dry. EOMI, PERRLA, bilateral sclera anicteric, no conjunctival injection. Neck supple without JVD, lymphadenopathy, or bruit. Respiratory: clear to ascultation bilaterally. No rales/rhonic/wheezes. Cardiovascular: Regular rate and rhythm, normal S1-S2 upon ascultation. No murmurs, rubs, or clicks. PMI is nondisplaced, capillary refill less than 3 second. Abdomen: Soft, round, no pulsatile masses, nondistended and nontender. No rebound, no guarding. No CVA tenderness, no hepatosplenomegaly. Bowel sounds present to all four quadrants. No high pitch or tinkling sounds, resonant to percussion. Extremities: No cyanosis, clubbing, or edema present. Pulses are palpable 2/2. Active ROM to all four extremities. Neuro: Alert and orientated x 1. PERRLA. Follows simple commands. Cranial nerves 2-12 intact without focal deficit. Skin: Warm, dry, and intact, without rash, erythema, or lesion. Psych: pleasant on bedside exam Objective Data Vital Signs Vital Signs: Vital Signs - 24 hr 07/26/25 17:36 07/26/25 20:00 07/26/25 20:23 Temperature 98.2 F Pulse Rate 89 85 Respiratory Rate 20 Blood Pressure 145/102 H Pulse Oximetry 99 Oxygen Delivery Room Air 07/27/25 08:00 07/27/25 08:00 Temperature 98.2 F Pulse Rate 92 Respiratory Rate 18 Blood Pressure 170/89 H Pulse Oximetry 95 Oxygen Delivery Room Air Intake/Output Intake/Output: Intake & Output 07/24/25 07/25/25 07/26/25 07/27/25 23:59 23:59 23:59 23:59 Intake Total 835 1356 1300 280 Output Total 0 500 Balance 339 508 6931 280 Meds/Results Medications: Active Medications Generic Name Dose Route Start Last Admin Trade Name Freq PRN Reason Stop Dose Admin Acetaminophen 650 mg 07/20/25 13:52 07/24/25 08:38 Acetaminophen 325 Mg Tablet PO 650 mg Q4H PRN Administration Mild Pain (1-3) or Fever Aspirin 81 mg 07/22/25 09:00 07/26/25 09:49 Aspirin 81 Mg Enteric Tablet PO 81 mg QAM CORBIN Administration Clonidine HCl 1 patch 07/28/25 09:00 Clonidine 0.2 Mg/24 Hr Patch TRANSDERM WEEKLY CORBIN Docusate Sodium 100 mg 07/20/25 17:00 07/26/25 18:24 Docusate Sodium 100 Mg Capsule PO Not Given BID CORBIN Enoxaparin Sodium 40 mg 07/23/25 09:00 07/26/25 09:50 Enoxaparin 40 Mg/0.4 Ml Syringe SUB-Q 40 mg DAILY CORBIN Administration Metoprolol Tartrate 12.5 mg 07/24/25 09:25 07/26/25 20:23 Metoprolol Tartrate 12.5 Mg Tablet PO 12.5 mg Q12HR CORBIN Administration Olanzapine 5 mg 07/24/25 09:00 07/24/25 08:38 Olanzapine 5 Mg Tablet PO 5 mg On Hold: 07/24/25 15:29 QAM CORBIN Administration Quetiapine Fumarate 25 mg 07/22/25 10:00 07/24/25 15:53 Quetiapine Fumarate 25 Mg Tablet PO Not Given On Hold: 07/24/25 15:29 TID CORBIN Quetiapine Fumarate 25 mg 07/24/25 20:27 07/27/25 03:00 Quetiapine Fumarate 25 Mg Tablet PO 25 mg Q12HR PRN Administration Agitation Radiology Results: ITS Impressions Head CT 07/20/25 09:45 IMPRESSION: 1. Normal aging brain. 2. Chronic sinusitis. Chest X-Ray 07/20/25 09:49 Impression: No acute cardiopulmonary abnormality. Venous Doppler Study 07/24/25 17:42 Impression: Negative for DVT. Labs Labs: Laboratory Results - last 24 hr 07/27/25 03:32 WBC 8.0 RBC 4.10 L Hgb 11.9 L Hct 35.8 L MCV 87.3 MCH 29.0 MCHC 33.2 RDW 13.4 Plt Count 213 MPV 11.1 H Sodium 138 Potassium 3.4 Chloride 107 Carbon Dioxide 25 Anion Gap 6 BUN 14 Creatinine 0.82 Estim Creat Clear Calc 75 Estimated GFR > 60 Glucose 102 Calcium 8.3 L Total Bilirubin 0.7 AST 35 ALT 28 Alkaline Phosphatase 58 Total Protein 5.9 L Albumin 3.2 L Quality VTE Prophylaxis VTE prophylaxis: mechanical ordered Hospitalist [facility] Advance Care Plan I have confirmed that the patient's Advanced Care Plan is present, code status is documented, or surrogate decision maker is listed in patient medical record.: Yes Medication Reconciliation I have utilized all available resources to obtain, update and review the patients current medications (includes all prescriptions, OTC, herbals, cannabis, and nutritional supplements).: Yes
--- NOTE | 2025-07-27 10:23 | PCNWS ---
Weekly nutritional screen. Patient is tolerating current diet with adequate intake. No weight loss reported. No nutritional needs at this time.
--- NOTE | 2025-07-27 12:01 | P.PSYCH_ITS ---
Progress Note: A&P Assessment and Plan (1) Lewy body dementia with agitation: Code(s): G31.83 - Neurocognitive disorder with Lewy bodies; F02.811 - Dementia in other diseases classified elsewhere, unspecified severity, with agitation Status: Acute Assessment and Plan: 1. QTc monitoring: Continue to monitor QTc regularly; avoid other QT- prolonging medications. 2. Electrolyte management: Maintain potassium >=4.0 mmol/L 3. Medication: * Initiate Olanzapine 5 mg PO HS for agitation/mood stabilization. * Initiate Mirtazapine 7.5 mg PO HS for sleep regulation. 4. Psychiatry: Continue coordination with memory care unit 5. Other: Monitor for sedation, orthostatic changes, and general medical stability. Review of Systems Review of Systems: ROS unobtainable: Yes unobtainable due to mental status Psychiatric: Psychiatric: Reports memory loss Comments: patient reports, I'm feeling good. Exam Psych: Appearance: well kempt Speech and movement: Other speech and movement exam findings present (Psych) (answers some questions, then does not answer others.) Affect: normal affect Attitude: Refuses to answer (attititude/behavior) Thought process: Other thought process findings present (CRISTELA) Thought content: Yes other (CRISTELA) Insight: Poor insight present (Psych) Judgement: Poor judgement present (Psych) Objective Data Vital Signs Vital Signs: Vital Signs - 24 hr 07/26/25 17:36 07/26/25 20:00 07/26/25 20:23 Temperature 98.2 F Pulse Rate 89 85 Respiratory Rate 20 Blood Pressure 145/102 H Pulse Oximetry 99 Oxygen Delivery Room Air 07/27/25 08:00 07/27/25 08:00 Temperature 98.2 F Pulse Rate 92 Respiratory Rate 18 Blood Pressure 170/89 H Pulse Oximetry 95 Oxygen Delivery Room Air Intake/Output Intake/Output: Intake & Output 07/24/25 07/25/25 07/26/25 07/27/25 23:59 23:59 23:59 23:59 Intake Total 835 1356 1300 280 Output Total 0 500 Balance 683 911 6943 280 Meds/Results Medications: Active Medications Generic Name Dose Route Start Last Admin Trade Name Freq PRN Reason Stop Dose Admin Acetaminophen 650 mg 07/20/25 13:52 07/24/25 08:38 Acetaminophen 325 Mg Tablet PO 650 mg Q4H PRN Administration Mild Pain (1-3) or Fever Aspirin 81 mg 07/22/25 09:00 07/26/25 09:49 Aspirin 81 Mg Enteric Tablet PO 81 mg QAM CORBIN Administration Clonidine HCl 1 patch 07/28/25 09:00 Clonidine 0.2 Mg/24 Hr Patch TRANSDERM WEEKLY CORBIN Docusate Sodium 100 mg 07/20/25 17:00 07/26/25 18:24 Docusate Sodium 100 Mg Capsule PO Not Given BID CORBIN Enoxaparin Sodium 40 mg 07/23/25 09:00 07/26/25 09:50 Enoxaparin 40 Mg/0.4 Ml Syringe SUB-Q 40 mg DAILY CORBIN Administration Metoprolol Tartrate 12.5 mg 07/24/25 09:25 07/26/25 20:23 Metoprolol Tartrate 12.5 Mg Tablet PO 12.5 mg Q12HR CORBIN Administration Olanzapine 5 mg 07/24/25 09:00 07/24/25 08:38 Olanzapine 5 Mg Tablet PO 5 mg On Hold: 07/24/25 15:29 QAM CORBIN Administration Olanzapine 5 mg 07/28/25 09:00 Olanzapine 5 Mg Tablet PO QAM CORBIN Quetiapine Fumarate 25 mg 07/22/25 10:00 07/24/25 15:53 Quetiapine Fumarate 25 Mg Tablet PO Not Given On Hold: 07/24/25 15:29 TID CORBIN Quetiapine Fumarate 25 mg 07/24/25 20:27 07/27/25 03:00 Quetiapine Fumarate 25 Mg Tablet PO 25 mg Q12HR PRN Administration Agitation Radiology Results: ITS Impressions Head CT 07/20/25 09:45 IMPRESSION: 1. Normal aging brain. 2. Chronic sinusitis. Chest X-Ray 07/20/25 09:49 Impression: No acute cardiopulmonary abnormality. Venous Doppler Study 07/24/25 17:42 Impression: Negative for DVT. Labs Labs: Laboratory Results - last 24 hr 07/27/25 03:32 WBC 8.0 RBC 4.10 L Hgb 11.9 L Hct 35.8 L MCV 87.3 MCH 29.0 MCHC 33.2 RDW 13.4 Plt Count 213 MPV 11.1 H Sodium 138 Potassium 3.4 Chloride 107 Carbon Dioxide 25 Anion Gap 6 BUN 14 Creatinine 0.82 Estim Creat Clear Calc 75 Estimated GFR > 60 Glucose 102 Calcium 8.3 L Total Bilirubin 0.7 AST 35 ALT 28 Alkaline Phosphatase 58 Total Protein 5.9 L Albumin 3.2 L Subjective Date/time seen: 07/27/25 12:01 Interval history: Humberto Ku is an 79-year-old male with Lewy body dementia admitted for management of behavioral changes and intermittent agitation. Psychiatry has been following the patient during hospitalization. On 07/24, EKG revealed a QTc of 503 ms, prompting discontinuation of all QT- prolonging antipsychotic medications. The patient has a prior history of valproic acid?induced hyperammonemia (ammonia 96 ?mol/L on 07/20), which has since resolved (<9 ?mol/L). Repeat EKG on 07/27 shows QTc 451 ms. Electrolytes are mostly within normal limits except for mild hypokalemia (K? 3.4 mmol/L), slightly low calcium (Ca?? 8.3 mg/dL), albumin 3.2 g/dL, and total protein 5.9 g/dL. The patient remains calm and cooperative with no acute agitation. Psychiatry was re-consulted on 07/27, recommending resuming a low?QT-risk antipsychotic if needed. Initiate olanzapine 5 mg PO HS for agitation prevention and sleep regulation. Initiate Mirtazapine 7.5 mg PO HS for sleep regulation. Continue PRN quetiapine 25 mg TID PRN for severe agitation.
--- NOTE | 2025-07-27 12:31 | ECG_ITS ---
Test Date: 2025-07-27 12:39:24 Measurements Intervals [place] Rate: 81 P: 29 AR: 189 QRS: -40 QRSD: 105 T: 52 QT: 380 QTc: 444 Interpretive Statements SINUS RHYTHM WITH OCCASIONAL VENTRICULAR PREMATURE COMPLEXES LEFT AXIS DEVIATION LEFT VENTRICULAR HYPERTROPHY BORDERLINE R WAVE PROGRESSION, ANTERIOR LEADS BASELINE ARTIFACT- I, III, AVR, AVL, AVF, V1-V6 BORDERLINE ECG Compared to ECG 07/26/2025 06:44:22 NO SIGNIFICANT CHANGE Electronically Signed On 07-27-2025 12:59:18 CDT by Med Carter D.O.
[2025-07-27 12:48] VITALS: BP 123/67; PULSE 71; RESP 14; TEMP 36.8; O2SAT 96
[2025-07-27 12:55] VITALS: PULSE 70
[2025-07-27] MEDS: DOCUSATE SODIUM 100 MG CAPSULE PO ×2 (12:55→16:20)
[2025-07-27] MEDS: ASPIRIN 81 MG ENTERIC TABLET PO (12:55)
[2025-07-27] MEDS: METOPROLOL TARTRATE 12.5 MG TABLET PO (12:55)
[2025-07-27] MEDS: ENOXAPARIN 40 MG/0.4 ML SYRINGE SUB-Q (12:55)
[2025-07-27 16:00] VITALS: BP 136/82; PULSE 88; RESP 14; TEMP 37.1; O2SAT 96
--- NOTE | 2025-07-27 21:20 | PC.NURSE ---
Patient pretending to sleep-will administer medications when he wants to wake up.
[2025-07-27 21:54] VITALS: PULSE 68
[2025-07-27 23:11] VITALS: BP 111/65
--- NOTE | 2025-07-27 23:12 | PC.NURSE ---
Patient will wake up now but wants to be left alone and does not want medication at this time. Blood pressure rechecked: 111/65.
[2025-07-28] VITALS (7 sets, daily range): BP systolic 102–168; BP diastolic 66–92; PULSE 77–96; RESP 16–18; TEMP 36.4–36.7; O2SAT 96–99
--- NOTE | 2025-07-28 04:35 | PC.NURSE ---
Spoke with Dr George and she states it is OK to give mirtazapine pt refused earlier now.
[2025-07-28] MEDS: MIRTAZAPINE 7.5 MG TABLET PO ×2 (04:37→20:11)
[2025-07-28] MEDS: DOCUSATE SODIUM 100 MG CAPSULE PO ×2 (08:50→17:16)
[2025-07-28] MEDS: ASPIRIN 81 MG ENTERIC TABLET PO (08:50)
[2025-07-28] MEDS: ENOXAPARIN 40 MG/0.4 ML SYRINGE SUB-Q (08:50)
[2025-07-28] MEDS: METOPROLOL TARTRATE 12.5 MG TABLET PO ×2 (08:50→20:11)
--- NOTE | 2025-07-28 09:20 | P.PNIM_ITS ---
Progress Note: A&P Assessment and Plan (1) Aggression: Code(s): R46.89 - Other symptoms and signs involving appearance and behavior Status: Acute Assessment and Plan: * Patient on soft restraints * Head CT with no acute finding * Hold Seroquel 25mg tid and Olanzapine * Valproic level pending * Daughter is working with the patient's facility to get pharmacogenetic testing done, will work with Genna Chavez [phone], the director of the facility to have a cheek swab collected * Clonidine 0.2 Mg/24 Hr patch * Psych recs appreciated 07/25: Order EKG. Psychiatry the evaluated the patient and advised to hold all QT prolonging antipsychotics. As per psychiatry, the recommendation is if nonpharmacological measures fail can consider Seroquel 25 mg b.i.d. p.r.n. which can be used only if QTC less than 500 or olanzapine 2.5 mg-5 mg IM p.r.n. for short-term severe agitation. Avoid Depakote due to previous hyperammonemia. Consider mirtazapine 7.5-15 mg HS for appetite and sleep regulation. Patient is medically cleared to discharge to inpatient psychiatric facility. 07/26: Same as above, patient received Zyprexa and Seroquel in the [employer] consultant (given by accident investigator). Ordered 1 dose of diazepam 5 mg IV x1 07/27:Psychiatry the evaluated the patient and started patient on Zyprexa 5 mg p.o. HS and Seroquel 25 mg p.o. b.i.d. p.r.n. 07/28: Called POA and explained the risk and benefits of psychiatric medication. Discussed goals of care including hospice in future. Explained to her monitoring QTC interval in long term is nearly impossible. 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 * Lactulose x1 * 07/24: Ammonia < 9 * resolved * Avoid Depakote (4) Acute dehydration: Code(s): E86.0 - Dehydration Status: Acute Assessment and Plan: * Will consider IV fluids if patient is not eating (5) Elevated CK: Code(s): R74.8 - Abnormal levels of other serum enzymes Status: Acute Assessment and Plan: * Hydration * CK in a.m. * 380 -> 293 (6) Low TSH level: Code(s): R79.89 - Other specified abnormal findings of blood chemistry Status: Acute Assessment and Plan: * T4 1.22 wnl, T3 pending (7) Atrial fibrillation: Code(s): I48.91 - Unspecified atrial fibrillation Status: Acute Assessment and Plan: Restarted metoprolol 12.5 mg p.o. b.i.d. Plan DVT prophylaxis on Sq Lovenox Subjective Date/time seen: 07/28/25 09:20 Interval history: 07/28: Called POA and explained the risk and benefits of psychiatric medication. Discussed goals of care including hospice in future. Explained to her monitoring QTC interval in long term is nearly impossible. 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 HS and Seroquel 25 mg p.o. b.i.d. p.r.n.. As per Psychiatry team patient will possibly returning to [facility] unit if his aggression is controlled. Review of Systems Review of Systems: ROS unobtainable: Yes unobtainable due to mental status Exam Narrative: General: No acute distress HEENT: normocephalic, atraumatic. Mucous membranes dry. EOMI, PERRLA, bilateral sclera anicteric, no conjunctival injection. Neck supple without JVD, lymphadenopathy, or bruit. Respiratory: clear to ascultation bilaterally. No rales/rhonic/wheezes. Cardiovascular: Regular rate and rhythm, normal S1-S2 upon ascultation. No murmurs, rubs, or clicks. PMI is nondisplaced, capillary refill less than 3 second. Abdomen: Soft, round, no pulsatile masses, nondistended and nontender. No rebound, no guarding. No CVA tenderness, no hepatosplenomegaly. Bowel sounds present to all four quadrants. No high pitch or tinkling sounds, resonant to percussion. Extremities: No cyanosis, clubbing, or edema present. Pulses are palpable 2/2. Active ROM to all four extremities. Neuro: Alert and orientated x 1. PERRLA. Follows simple commands. Cranial nerves 2-12 intact without focal deficit. Skin: Warm, dry, and intact, without rash, erythema, or lesion. Psych: pleasant on bedside exam Objective Data Vital Signs Vital Signs: Vital Signs - 24 hr 07/27/25 12:48 07/27/25 12:55 07/27/25 16:00 Temperature 98.2 F 98.7 F Pulse Rate 71 70 88 Respiratory Rate 14 14 Blood Pressure 123/67 136/82 Pulse Oximetry 96 96 07/27/25 21:54 07/27/25 23:11 07/28/25 00:00 Temperature Pulse Rate 68 Respiratory Rate Blood Pressure 111/65 102/66 Pulse Oximetry 07/28/25 08:00 07/28/25 08:50 Temperature 97.7 F Pulse Rate 77 77 Respiratory Rate 18 Blood Pressure 133/83 Pulse Oximetry 99 Intake/Output Intake/Output: Intake & Output 07/25/25 07/26/25 07/27/25 07/28/25 23:59 23:59 23:59 23:59 Intake Total 1356 1300 1000 Output Total 500 Balance 856 1300 1000 Meds/Results Medications: Active Medications Generic Name Dose Route Start Last Admin Trade Name Freq PRN Reason Stop Dose Admin Acetaminophen 650 mg 07/20/25 13:52 07/24/25 08:38 Acetaminophen 325 Mg Tablet PO 650 mg Q4H PRN Administration Mild Pain (1-3) or Fever Aspirin 81 mg 07/22/25 09:00 07/28/25 08:50 Aspirin 81 Mg Enteric Tablet PO 81 mg QAM CORBIN Administration Clonidine HCl 1 patch 07/28/25 09:00 07/28/25 08:50 Clonidine 0.2 Mg/24 Hr Patch TRANSDERM 1 patch WEEKLY CORBIN Administration Docusate Sodium 100 mg 07/20/25 17:00 07/28/25 08:50 Docusate Sodium 100 Mg Capsule PO 100 mg BID CORBIN Administration Enoxaparin Sodium 40 mg 07/23/25 09:00 07/28/25 08:50 Enoxaparin 40 Mg/0.4 Ml Syringe SUB-Q 40 mg DAILY CORBIN Administration Metoprolol Tartrate 12.5 mg 07/24/25 09:25 07/28/25 08:50 Metoprolol Tartrate 12.5 Mg Tablet PO 12.5 mg Q12HR CORBIN Administration Mirtazapine 7.5 mg 07/27/25 21:00 07/27/25 23:12 Mirtazapine 7.5 Mg Tablet PO Not Given HS CORBIN Olanzapine 5 mg 07/24/25 09:00 07/24/25 08:38 Olanzapine 5 Mg Tablet PO 5 mg On Hold: 07/24/25 15:29 QAM CORBIN Administration Olanzapine 5 mg 07/27/25 17:00 07/27/25 16:20 Olanzapine 5 Mg Tablet PO 5 mg 1700 CORBIN Administration Quetiapine Fumarate 25 mg 07/22/25 10:00 07/24/25 15:53 Quetiapine Fumarate 25 Mg Tablet PO Not Given On Hold: 07/24/25 15:29 TID CORBIN Quetiapine Fumarate 25 mg 07/24/25 20:27 07/28/25 04:34 Quetiapine Fumarate 25 Mg Tablet PO 25 mg Q12HR PRN Administration Agitation Radiology Results: ITS Impressions Head CT 07/20/25 09:45 IMPRESSION: 1. Normal aging brain. 2. Chronic sinusitis. Chest X-Ray 07/20/25 09:49 Impression: No acute cardiopulmonary abnormality. Venous Doppler Study 07/24/25 17:42 Impression: Negative for DVT. Quality VTE Prophylaxis VTE prophylaxis: mechanical ordered Hospitalist [facility] Advance Care Plan I have confirmed that the patient's Advanced Care Plan is present, code status is documented, or surrogate decision maker is listed in patient medical record.: Yes Medication Reconciliation I have utilized all available resources to obtain, update and review the patients current medications (includes all prescriptions, OTC, herbals, cannabis, and nutritional supplements).: Yes
--- NOTE | 2025-07-28 10:27 | ECG_ITS ---
Test Date: 2025-07-28 11:05:39 Measurements Intervals [place] Rate: 76 P: 53 [place]: 179 QRS: -36 QRSD: 117 T: 65 QT: 413 QTc: 467 Interpretive Statements SINUS RHYTHM WITH OCCASIONAL VENTRICULAR PREMATURE COMPLEXES LEFT AXIS DEVIATION LEFT VENTRICULAR HYPERTROPHY AND ST-T CHANGE CANNOT R/O SEPTAL INFARCT, AGE INDETERMINATE BASELINE ARTIFACT- I, III ABNORMAL ECG Compared to ECG 07/27/2025 12:39:24 NO SIGNIFICANT CHANGE Electronically Signed On 07-28-2025 15:07:26 CDT by Med Carter D.O.
[2025-07-29] VITALS (7 sets, daily range): BP systolic 123–165; BP diastolic 86–99; PULSE 69–90; RESP 16–22; TEMP 36.2–37.6; O2SAT 99–100
--- NOTE | 2025-07-29 04:18 | PC.NURSE ---
Pt not cooperating with lab draws. He will not let staff look at arms and closes eyes and pretends to sleep. This RN informed lab she would call them when he is more compliant.
[2025-07-29] MEDS: ENOXAPARIN 40 MG/0.4 ML SYRINGE SUB-Q (07:45)
[2025-07-29] MEDS: ASPIRIN 81 MG ENTERIC TABLET PO (07:45)
[2025-07-29] MEDS: DOCUSATE SODIUM 100 MG CAPSULE PO ×2 (07:45→16:06)
[2025-07-29] MEDS: METOPROLOL TARTRATE 12.5 MG TABLET PO ×2 (07:45→19:19)
[2025-07-29 08:20] LABS: Platelet Count Result 247 k/mm3 (150-375)
[2025-07-29 08:29] LABS: Estimated CRCL calculation 63 ml/min; Estimated Glomerular Filt Rate > 60
--- NOTE | 2025-07-29 10:22 | ECG_ITS ---
Test Date: 2025-07-29 11:23:24 Measurements Intervals [place] Rate: 80 P: 83 [place]: 195 QRS: -26 QRSD: 104 T: 10 QT: 377 QTc: 437 Interpretive Statements SINUS RHYTHM WITH OCCASIONAL VENTRICULAR PREMATURE COMPLEXES LEFT VENTRICULAR HYPERTROPHY WITH ST-T CHANGE CANNOT R/O SEPTAL INFARCT, AGE INDETERMINATE BASELINE ARTIFACT- I, II, AVR, AVL, AVF, V2 ABNORMAL ECG Compared to ECG 07/28/2025 11:05:39 NO SIGNIFICANT CHANGE Electronically Signed On 07-29-2025 14:03:38 CDT by Med Carter D.O.
[2025-07-29 10:30] LABS: Hematocrit 39.8 % (42.0-52.0); Hemoglobin 12.7 g/dL (14.0-18.0); Mean Corpuscular HGB Conc 31.9 g/dl (32-36); Mean Corpuscular Hemoglobin 28.4 pg (26-34); Mean Corpuscular Volume 89.0 fl (80-100); Red Blood Count 4.47 M/mm3 (4.6-6.20); White Blood Count 8.7 K/mm3 (4.5-10.0)
[2025-07-29 10:38] LABS: Alanine Aminotransferase 54 U/L (6-50); Albumin Level 3.6 g/dL (3.5-5.1); Alkaline Phosphatase 60 U/L (38-126); Anion Gap 5 mmol/L (4-12); Aspartate Amino Transferase 43 U/L (17-59); Bilirubin,Total 0.8 mg/dL (0.2-1.3); Blood Urea Nitrogen 17 mg/dL (9-20); Calcium 8.7 mg/dL (8.4-10.2); Carbon Dioxide 26 mmol/L (22-30); Chloride 106 mmol/L (98-107); Glucose 140 mg/dL (65-110); Magnesium 1.8 mg/dL (1.6-2.3); Potassium 3.7 mmol/L (3.4-5.0); Sodium 137 mmol/L (137-145); Total Protein 6.8 g/dL (6.3-8.2)
--- NOTE | 2025-07-29 17:56 | P.PNIM_ITS ---
Progress Note: A&P Assessment and Plan (1) Aggression: Code(s): R46.89 - Other symptoms and signs involving appearance and behavior Status: Acute Assessment and Plan: * Patient on soft restraints * Head CT with no acute finding * Hold Seroquel 25mg tid and Olanzapine * Valproic level pending * Daughter is working with the patient's facility to get pharmacogenetic testing done, will work with Genna Chavez [phone], the director of the facility to have a cheek swab collected * Clonidine 0.2 Mg/24 Hr patch * Psych recs appreciated 07/25: Order EKG. Psychiatry the evaluated the patient and advised to hold all QT prolonging antipsychotics. As per psychiatry, the recommendation is if nonpharmacological measures fail can consider Seroquel 25 mg b.i.d. p.r.n. which can be used only if QTC less than 500 or olanzapine 2.5 mg-5 mg IM p.r.n. for short-term severe agitation. Avoid Depakote due to previous hyperammonemia. Consider mirtazapine 7.5-15 mg HS for appetite and sleep regulation. Patient is medically cleared to discharge to inpatient psychiatric facility. 07/26: Same as above, patient received Zyprexa and Seroquel in the packing checker (given by chute loader). Ordered 1 dose of diazepam 5 mg IV x1 07/27:Psychiatry the evaluated the patient and started patient on Zyprexa 5 mg p.o. HS and Seroquel 25 mg p.o. b.i.d. p.r.n. 07/28: Called POA and explained the risk and benefits of psychiatric medication. Discussed goals of care including hospice in future. Explained to her monitoring QTC interval in assisted is nearly impossible. 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 * Lactulose x1 * 07/24: Ammonia < 9 * resolved * Avoid Depakote (4) Acute dehydration: Code(s): E86.0 - Dehydration Status: Acute Assessment and Plan: * Will consider IV fluids if patient is not eating (5) Elevated CK: Code(s): R74.8 - Abnormal levels of other serum enzymes Status: Acute Assessment and Plan: * Hydration * CK in a.m. * 380 -> 293 (6) Low TSH level: Code(s): R79.89 - Other specified abnormal findings of blood chemistry Status: Acute Assessment and Plan: * T4 1.22 wnl, T3 pending (7) Atrial fibrillation: Code(s): I48.91 - Unspecified atrial fibrillation Status: Acute Assessment and Plan: Restarted metoprolol 12.5 mg p.o. b.i.d. Plan patient still trying to get out of the bed and not cooperating with nursing staff, remains with sitter, will continue to monitor. DVT prophylaxis on Sq Lovenox Subjective Date/time seen: 07/29/25 17:56 Interval history: 07/28: Called POA and explained the risk and benefits of psychiatric medication. Discussed goals of care including hospice in future. Explained to her monitoring QTC interval in assisted is nearly impossible. 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 HS and Seroquel 25 mg p.o. b.i.d. p.r.n.. As per Psychiatry team patient will possibly returning to [facility] unit if his aggression is controlled. patient still trying to get out of the bed and not cooperating with nursing staff, remains with sitter, will continue to monitor. Review of Systems Review of Systems: ROS unobtainable: Yes unobtainable due to mental status Exam Narrative: Patient is comfortable, NAD HEENT: eyes are clear and none icteric LUNGS:CTA HEART: RR S1S2 ABD: BS+, Soft and nontender Lower extremities: no edema SKIN: nonjaundiced Neuro: Confused agitated Objective Data Vital Signs Vital Signs: Vital Signs - 24 hr 07/28/25 19:49 07/28/25 19:55 07/28/25 20:11 Temperature 36.4 C L Pulse Rate 80 80 Respiratory Rate 16 Blood Pressure 154/83 H Pulse Oximetry 96 96 Oxygen Delivery Room Air 07/29/25 02:13 07/29/25 07:45 07/29/25 07:51 Temperature 36.4 C Pulse Rate 78 87 90 Respiratory Rate 16 18 Blood Pressure 123/87 165/90 H Pulse Oximetry 100 99 Oxygen Delivery 07/29/25 07:59 07/29/25 16:00 Temperature 36.6 C Pulse Rate 90 Respiratory Rate 18 Blood Pressure 146/99 H Pulse Oximetry 99 Oxygen Delivery Room Air Intake/Output Intake/Output: Intake & Output 07/26/25 07/27/25 07/28/25 07/29/25 23:59 23:59 23:59 23:59 Intake Total 1300 1000 1200 780 Output Total 525 175 Balance 1300 1000 675 605 Meds/Results Medications: Active Medications Generic Name Dose Route Start Last Admin Trade Name Freq PRN Reason Stop Dose Admin Acetaminophen 650 mg 07/20/25 13:52 07/24/25 08:38 Acetaminophen 325 Mg Tablet PO 650 mg Q4H PRN Administration Mild Pain (1-3) or Fever Aspirin 81 mg 07/22/25 09:00 07/29/25 07:45 Aspirin 81 Mg Enteric Tablet PO 81 mg QAM CORBIN Administration Clonidine HCl 1 patch 07/28/25 09:00 07/28/25 08:50 Clonidine 0.2 Mg/24 Hr Patch TRANSDERM 1 patch WEEKLY CORBIN Administration Docusate Sodium 100 mg 07/20/25 17:00 07/29/25 16:06 Docusate Sodium 100 Mg Capsule PO 100 mg BID CORBIN Administration Enoxaparin Sodium 40 mg 07/23/25 09:00 07/29/25 07:45 Enoxaparin 40 Mg/0.4 Ml Syringe SUB-Q 40 mg DAILY CORBIN Administration Metoprolol Tartrate 12.5 mg 07/24/25 09:25 07/29/25 07:45 Metoprolol Tartrate 12.5 Mg Tablet PO 12.5 mg Q12HR CORBIN Administration Mirtazapine 7.5 mg 07/27/25 21:00 07/28/25 20:11 Mirtazapine 7.5 Mg Tablet PO 7.5 mg HS CORBIN Administration Olanzapine 5 mg 07/27/25 17:00 07/29/25 16:06 Olanzapine 5 Mg Tablet PO 5 mg 1700 CORBIN Administration Quetiapine Fumarate 25 mg 07/24/25 20:27 07/29/25 07:46 Quetiapine Fumarate 25 Mg Tablet PO 25 mg Q12HR PRN Administration Agitation Radiology Results: ITS Impressions Head CT 07/20/25 09:45 IMPRESSION: 1. Normal aging brain. 2. Chronic sinusitis. Chest X-Ray 07/20/25 09:49 Impression: No acute cardiopulmonary abnormality. Venous Doppler Study 07/24/25 17:42 Impression: Negative for DVT. Labs Labs: Laboratory Results - last 24 hr 07/29/25 08:13 WBC 8.7 RBC 4.47 L Hgb 12.7 L Hct 39.8 L MCV 89.0 MCH 28.4 MCHC 31.9 L RDW 13.7 Plt Count 247 MPV 10.7 H Sodium 137 Potassium 3.7 Chloride 106 Carbon Dioxide 26 Anion Gap 5 BUN 17 Creatinine 0.98 Estim Creat Clear Calc 63 Estimated GFR > 60 Glucose 140 H Calcium 8.7 Magnesium 1.8 Total Bilirubin 0.8 AST 43 ALT 54 H Alkaline Phosphatase 60 Total Protein 6.8 Albumin 3.6 Quality VTE Prophylaxis VTE prophylaxis: mechanical ordered
[2025-07-29] MEDS: MIRTAZAPINE 7.5 MG TABLET PO (19:20)
--- NOTE | 2025-07-29 23:47 | PC.NURSE ---
Primary RN responded to bed alarm, pt was trying to get out of bed with PCT at bedside attempting to redirect behavior to prevent pt from falling. Pt was very unsteady on his feet and leaning heavily on PCT as he also attempted to push her away. Pt insisted on standing while both staff members attempted to hold him up. Pt stated sure when asked to sit back down but did not comply with requests. Pt offered urinal but threw it to the corner of the room. Pt kept grabbing both staff members' arms and then reached up and put both his hands on the throat of the PCT. RN and PCT were able to dislodge seed trucker. fire assistant Angi responded to room and staff were able to redirect patient back to bed. Staff once again offered pt urinal and pt attempted to use, but then denied need for bathroom. Pt offered snack and fluids and patient became more cooperative.
[2025-07-30 07:28] VITALS: BP 145/66; PULSE 60; RESP 16; TEMP 36.6; O2SAT 100
[2025-07-30 07:30] LABS: Hematocrit 36.1 % (42.0-52.0); Hemoglobin 11.4 g/dL (14.0-18.0); Mean Corpuscular HGB Conc 31.6 g/dl (32-36); Mean Corpuscular Hemoglobin 28.1 pg (26-34); Mean Corpuscular Volume 88.9 fl (80-100); Platelet Count Result 234 k/mm3 (150-375); Red Blood Count 4.06 M/mm3 (4.6-6.20); White Blood Count 6.8 K/mm3 (4.5-10.0)
[2025-07-30] MEDS: ENOXAPARIN 40 MG/0.4 ML SYRINGE SUB-Q (07:43)
[2025-07-30] MEDS: ASPIRIN 81 MG ENTERIC TABLET PO (07:43)
[2025-07-30] MEDS: DOCUSATE SODIUM 100 MG CAPSULE PO ×2 (07:43→17:04)
[2025-07-30 07:55] LABS: Anion Gap 5 mmol/L (4-12); Blood Urea Nitrogen 17 mg/dL (9-20); Calcium 8.8 mg/dL (8.4-10.2); Carbon Dioxide 28 mmol/L (22-30); Chloride 108 mmol/L (98-107); Estimated CRCL calculation 73 ml/min; Estimated Glomerular Filt Rate > 60; Glucose 104 mg/dL (65-110); Magnesium 2.0 mg/dL (1.6-2.3); Potassium 3.9 mmol/L (3.4-5.0); Sodium 141 mmol/L (137-145)
[2025-07-30] MEDS: ATORVASTATIN 20 MG TABLET PO (08:53)
[2025-07-30] MEDS: LOSARTAN POTASSIUM 25 MG TABLET PO (08:53)
[2025-07-30] MEDS: CLOPIDOGREL BISULFATE 75 MG TABLET PO (08:53)
[2025-07-30] MEDS: OPTI-GEN TAB 1 TABLET PO (08:53)
--- NOTE | 2025-07-30 09:29 | P.PNIM_ITS ---
Progress Note: A&P Assessment and Plan (1) Aggression: Code(s): R46.89 - Other symptoms and signs involving appearance and behavior Status: Acute Assessment and Plan: Likely secondary to dementia and delirium Overall improved. Continue her Remeron and Zyprexa at night and p.r.n. Seroquel as per Psychiatry recommendations. Continue behavioral modifications. Sitter bedside Patient is awaiting placement. (2) Elevated troponin: Code(s): R79.89 - Other specified abnormal findings of blood chemistry Status: Acute Assessment and Plan: Patient was evaluated by Cardiology and no further recommendations. Continue Plavix, Aspirin and Lipitor * ECHO shows ejection fraction 65-70% (3) Hyperammonemia: Code(s): E72.20 - Disorder of urea cycle metabolism, unspecified Status: Acute Assessment and Plan: * Repeat ammonia level in a.m. * Lactulose x1 * 07/24: Ammonia < 9 * resolved * Avoid Depakote (4) Acute dehydration: Code(s): E86.0 - Dehydration Status: Acute Assessment and Plan: Resolved with IV fluids. Patient now eating p.o. diet (5) Elevated CK: Code(s): R74.8 - Abnormal levels of other serum enzymes Status: Acute Assessment and Plan: Improved with IV fluid (6) Low TSH level: Code(s): R79.89 - Other specified abnormal findings of blood chemistry Status: Acute Assessment and Plan: * T4 1.22 wnl, T3 within normal limits (7) Atrial fibrillation: Code(s): I48.91 - Unspecified atrial fibrillation Status: Acute Assessment and Plan: Continue metoprolol 12.5 mg p.o. b.i.d. Patient not a candidate for anticoagulation but is on antiplatelet therapy. Plan Consult PT OT DVT prophylaxis on Sq Lovenox Subjective Date/time seen: 07/30/25 Overnight events reviewed. Patient is awake alert and oriented and eating breakfast in bed. As per nursing staff patient did had some confusion and agitation overnight but overall did well. Patient denies any complaints this morning. He denies any chest pain nausea vomiting shortness of breath or abdominal pain. All other systems were reviewed and were negative. Patient is on room air. Vital signs stable. Patient does not have a Thompson catheter and is not on any continuous infusion. He is not physically rest rained. Sitter is at bedside. Review of Systems Review of Systems: All systems reviewed & are unremarkable except as noted in HPI and below (HPI) Exam Narrative: Patient is comfortable, NAD HEENT: eyes are clear and none icteric LUNGS:CTA HEART: RR S1S2 ABD: BS+, Soft and nontender Lower extremities: no edema SKIN: nonjaundiced Neuro: Started speech, AO x3, moves all 4 extremity, follows command. Objective Data Vital Signs Vital Signs: Vital Signs - 24 hr 07/29/25 16:00 07/29/25 19:15 07/29/25 19:19 Temperature 36.6 C Pulse Rate 90 76 Respiratory Rate 18 Blood Pressure 146/99 H Pulse Oximetry 99 Oxygen Delivery Room Air 07/29/25 19:22 07/29/25 23:45 07/30/25 07:28 Temperature 37.6 C H 36.2 C L 36.6 C Pulse Rate 71 69 60 Respiratory Rate 22 H 20 16 Blood Pressure 156/86 H 140/87 145/66 H Pulse Oximetry 100 99 100 Oxygen Delivery 07/30/25 08:00 Temperature Pulse Rate Respiratory Rate Blood Pressure Pulse Oximetry Oxygen Delivery Room Air Intake/Output Intake/Output: Intake & Output 10/2407/28/25 07/29/25 07/30/25 23:59 23:59 23:59 23:59 Intake Total 1000 1200 780 150 Output Total 525 175 400 Balance 1000 675 605 -250 Meds/Results Medications: Active Medications Generic Name Dose Route Start Last Admin Trade Name Freq PRN Reason Stop Dose Admin Acetaminophen 650 mg 07/20/25 13:52 07/24/25 08:38 Acetaminophen 325 Mg Tablet PO 650 mg Q4H PRN Administration Mild Pain (1-3) or Fever Aspirin 81 mg 07/22/25 09:00 07/30/25 07:43 Aspirin 81 Mg Enteric Tablet PO 81 mg QAM CORBIN Administration Atorvastatin Calcium 20 mg 07/30/25 09:00 07/30/25 08:53 Atorvastatin 20 Mg Tablet PO 20 mg DAILY CORBIN Administration Clonidine HCl 1 patch 07/28/25 09:00 07/28/25 08:50 Clonidine 0.2 Mg/24 Hr Patch TRANSDERM 1 patch WEEKLY CORBIN Administration Clopidogrel Bisulfate 75 mg 07/30/25 09:00 07/30/25 08:53 Clopidogrel Bisulfate 75 Mg Tablet PO 75 mg DAILY CORBIN Administration Docusate Sodium 100 mg 07/20/25 17:00 07/30/25 07:43 Docusate Sodium 100 Mg Capsule PO 100 mg BID CORBIN Administration Enoxaparin Sodium 40 mg 07/23/25 09:00 07/30/25 07:43 Enoxaparin 40 Mg/0.4 Ml Syringe SUB-Q 40 mg DAILY CORBIN Administration Fluticasone Propionate 2 puff 07/30/25 08:00 Fluticasone Prop 220 Mcg (*Sp) 12 Gm Inhaler INHALATION Q12HRT CORBIN Losartan Potassium 25 mg 07/30/25 09:00 07/30/25 08:53 Losartan Potassium 25 Mg Tablet PO 25 mg DAILY CORBIN Administration Metoprolol Tartrate 12.5 mg 07/24/25 09:25 07/30/25 07:43 Metoprolol Tartrate 12.5 Mg Tablet PO 12.5 mg Q12HR CORBIN Administration Mirtazapine 7.5 mg 07/27/25 21:00 07/29/25 19:20 Mirtazapine 7.5 Mg Tablet PO 7.5 mg HS CORBIN Administration Multivitamins/Minerals 1 tablet 07/30/25 09:00 07/30/25 08:53 Opti-Gen Tab PO 1 tablet DAILY CORBIN Administration Olanzapine 5 mg 07/27/25 17:00 07/29/25 16:06 Olanzapine 5 Mg Tablet PO 5 mg 1700 CORBIN Administration Polyethylene Glycol 17 gm 07/30/25 08:03 Polyethylene Glycol 3350 17 Gm Powd.Pack PO DAILY PRN Constipation Quetiapine Fumarate 25 mg 07/24/25 20:27 07/30/25 07:42 Quetiapine Fumarate 25 Mg Tablet PO 25 mg Q12HR PRN Administration Agitation Senna 8.6 mg 07/30/25 08:03 Sennosides 8.6 Mg Tablet PO DAILY PRN Constipation Radiology Results: ITS Impressions Head CT 07/20/25 09:45 IMPRESSION: 1. Normal aging brain. 2. Chronic sinusitis. Chest X-Ray 07/20/25 09:49 Impression: No acute cardiopulmonary abnormality. Venous Doppler Study 07/24/25 17:42 Impression: Negative for DVT. Labs Labs: Laboratory Results - last 24 hr 07/29/25 07/30/25 08:13 07:25 WBC 8.7 6.8 RBC 4.47 L 4.06 L Hgb 12.7 L 11.4 L Hct 39.8 L 36.1 L MCV 89.0 88.9 MCH 28.4 28.1 MCHC 31.9 L 31.6 L RDW 13.7 13.7 Plt Count 247 234 MPV 10.7 H 10.7 H Sodium 137 141 Potassium 3.7 3.9 Chloride 106 108 H Carbon Dioxide 26 28 Anion Gap 5 5 BUN 17 17 Creatinine 0.98 0.84 Estim Creat Clear Calc 63 73 Estimated GFR > 60 > 60 Glucose 140 H 104 Calcium 8.7 8.8 Magnesium 1.8 2.0 Total Bilirubin 0.8 AST 43 ALT 54 H Alkaline Phosphatase 60 Total Protein 6.8 Albumin 3.6 Quality VTE Prophylaxis VTE prophylaxis: mechanical ordered
[2025-07-30] MEDS: FLUTICASONE PROP 220 MCG (*SP) 12 GM INHALER 2 PUFF INHALATION (10:14)
[2025-07-30 16:00] VITALS: BP 152/98; PULSE 66; RESP 18; TEMP 36.6; O2SAT 100
[2025-07-30] MEDS: MIRTAZAPINE 7.5 MG TABLET PO (19:41)
[2025-07-31] VITALS (7 sets, daily range): BP systolic 136–172; BP diastolic 69–118; PULSE 56–86; RESP 18–20; TEMP 36.6–37.1; O2SAT 98–100
[2025-07-31 04:09] LABS: Hematocrit 38.4 % (42.0-52.0); Hemoglobin 12.3 g/dL (14.0-18.0); Mean Corpuscular HGB Conc 32.0 g/dl (32-36); Mean Corpuscular Hemoglobin 28.5 pg (26-34); Mean Corpuscular Volume 88.9 fl (80-100); Platelet Count Result 242 k/mm3 (150-375); Red Blood Count 4.32 M/mm3 (4.6-6.20); White Blood Count 7.4 K/mm3 (4.5-10.0)
[2025-07-31 04:32] LABS: Anion Gap 5 mmol/L (4-12); Blood Urea Nitrogen 15 mg/dL (9-20); Calcium 8.9 mg/dL (8.4-10.2); Carbon Dioxide 28 mmol/L (22-30); Chloride 105 mmol/L (98-107); Estimated CRCL calculation 74 ml/min; Estimated Glomerular Filt Rate > 60; Glucose 95 mg/dL (65-110); Magnesium 1.8 mg/dL (1.6-2.3); Potassium 3.3 mmol/L (3.4-5.0); Sodium 138 mmol/L (137-145)
--- NOTE | 2025-07-31 07:12 | WPDPNPSYCH ---
Progress Note: A&P Assessment and Plan (1) Lewy body dementia with agitation: Code(s): G31.83 - Neurocognitive disorder with Lewy bodies; F02.811 - Dementia in other diseases classified elsewhere, unspecified severity, with agitation Status: Acute Plan -Continue scheduled mirtazapine 7.5mg qHS, olanzapine 5mg qHS -Per MAR, has not received PRN quetiapine for agitation since 07/24- no additional changes to medication today -QTc has stabilized, 437 on 07/29 -Patient would likely have greatest benefit being placed in specialized memory care unit, as it is not reasonable that his behaviors will completely dissipate given his diagnosis and this will provide the most appropriate level of care for him. Review of Systems Psychiatric: Psychiatric: Reports as per HPI Exam Psych: Appearance: grossly normal Speech and movement: Other speech and movement exam findings present (Psych) (soft) Affect: Blunted affect present Thought process: Impoverished thought process present Insight: Poor insight present (Psych) Judgement: Poor judgement present (Psych) Objective Data Vital Signs Vital Signs: Vital Signs - 24 hr 07/30/25 07:28 07/30/25 08:00 07/30/25 10:47 Temperature 98 F Pulse Rate 60 Respiratory Rate 16 Blood Pressure 145/66 H Pulse Oximetry 100 Oxygen Delivery Room Air Room Air 07/30/25 10:56 07/30/25 16:00 07/30/25 20:00 Temperature 97.9 F Pulse Rate 66 Respiratory Rate 18 Blood Pressure 152/98 H Pulse Oximetry 100 Oxygen Delivery Room Air Room Air 07/31/25 00:00 Temperature 98.8 F Pulse Rate 77 Respiratory Rate 20 Blood Pressure 172/118 H Pulse Oximetry 99 Oxygen Delivery Intake/Output Intake/Output: Intake & Output 07/28/25 07/29/25 07/30/25 07/31/25 23:59 23:59 23:59 23:59 Intake Total 1200 780 440 Output Total 525 175 400 Balance 675 605 40 Meds/Results Medications: Active Medications Generic Name Dose Route Start Last Admin Trade Name Freq PRN Reason Stop Dose Admin Acetaminophen 650 mg 07/20/25 13:52 07/24/25 08:38 Acetaminophen 325 Mg Tablet PO 650 mg Q4H PRN Administration Mild Pain (1-3) or Fever Aspirin 81 mg 07/22/25 09:00 07/30/25 07:43 Aspirin 81 Mg Enteric Tablet PO 81 mg QAM CORBIN Administration Atorvastatin Calcium 20 mg 07/30/25 09:00 07/30/25 08:53 Atorvastatin 20 Mg Tablet PO 20 mg DAILY CORBIN Administration Clonidine HCl 1 patch 07/28/25 09:00 07/28/25 08:50 Clonidine 0.2 Mg/24 Hr Patch TRANSDERM 1 patch WEEKLY CORBIN Administration Clopidogrel Bisulfate 75 mg 07/30/25 09:00 07/30/25 08:53 Clopidogrel Bisulfate 75 Mg Tablet PO 75 mg DAILY CORBIN Administration Docusate Sodium 100 mg 07/20/25 17:00 07/30/25 17:04 Docusate Sodium 100 Mg Capsule PO 100 mg BID CORBIN Administration Enoxaparin Sodium 40 mg 07/23/25 09:00 07/30/25 07:43 Enoxaparin 40 Mg/0.4 Ml Syringe SUB-Q 40 mg DAILY CORBIN Administration Fluticasone Propionate 2 puff 07/30/25 08:00 07/30/25 10:14 Fluticasone Prop 220 Mcg (*Sp) 12 Gm Inhaler INHALATION 2 puff Q12HRT CORBIN Administration Losartan Potassium 25 mg 07/30/25 09:00 07/30/25 08:53 Losartan Potassium 25 Mg Tablet PO 25 mg DAILY CORBIN Administration Metoprolol Tartrate 12.5 mg 07/24/25 09:25 07/30/25 21:00 Metoprolol Tartrate 12.5 Mg Tablet PO Not Given Q12HR CORBIN Mirtazapine 7.5 mg 07/27/25 21:00 07/30/25 19:41 Mirtazapine 7.5 Mg Tablet PO 7.5 mg HS CORBIN Administration Multivitamins/Minerals 1 tablet 07/30/25 09:00 07/30/25 08:53 Opti-Gen Tab PO 1 tablet DAILY CORBIN Administration Olanzapine 5 mg 07/27/25 17:00 07/30/25 17:04 Olanzapine 5 Mg Tablet PO 5 mg 1700 CORBIN Administration Polyethylene Glycol 17 gm 07/30/25 08:03 Polyethylene Glycol 3350 17 Gm Powd.Pack PO DAILY PRN Constipation Quetiapine Fumarate 25 mg 07/24/25 20:27 07/30/25 19:42 Quetiapine Fumarate 25 Mg Tablet PO 25 mg Q12HR PRN Administration Agitation Senna 8.6 mg 07/30/25 08:03 Sennosides 8.6 Mg Tablet PO DAILY PRN Constipation Radiology Results: ITS Impressions Head CT 07/20/25 09:45 IMPRESSION: 1. Normal aging brain. 2. Chronic sinusitis. Chest X-Ray 07/20/25 09:49 Impression: No acute cardiopulmonary abnormality. Venous Doppler Study 07/24/25 17:42 Impression: Negative for DVT. Labs Labs: Laboratory Results - last 24 hr 07/30/25 07/31/25 07:25 04:01 WBC 6.8 7.4 RBC 4.06 L 4.32 L Hgb 11.4 L 12.3 L Hct 36.1 L 38.4 L MCV 88.9 88.9 MCH 28.1 28.5 MCHC 31.6 L 32.0 RDW 13.7 13.3 Plt Count 234 242 MPV 10.7 H 10.9 H Sodium 141 138 Potassium 3.9 3.3 L Chloride 108 H 105 Carbon Dioxide 28 28 Anion Gap 5 5 BUN 17 15 Creatinine 0.84 0.83 Estim Creat Clear Calc 73 74 Estimated GFR > 60 > 60 Glucose 104 95 Calcium 8.8 8.9 Magnesium 2.0 1.8 Subjective Date/time seen: 07/31/25 07:12 Interval history: Humberto Ku is an 79-year-old male with Lewy body dementia admitted for management of behavioral changes and intermittent agitation. Psychiatry has been following the patient during hospitalization. Since admission, his agitation appears to be improved with recent medication changes. He has been receiving olanzapine 5mg qHS along with mirtazapine 7.5mg qHS. Quetiapine 25mg BID PRN is ordered for breakthrough agitation, although has not been given since 07/24 per DEC. Concern for elevated QTc in early admission, most recent QTc on 07/29 was within normal range at 437. Continues to await appropriate placement for hospital discharge, appears to be medically stable.
[2025-07-31] MEDS: ASPIRIN 81 MG ENTERIC TABLET PO (08:32)
[2025-07-31] MEDS: CLOPIDOGREL BISULFATE 75 MG TABLET PO (08:32)
[2025-07-31] MEDS: METOPROLOL TARTRATE 12.5 MG TABLET PO ×2 (08:32→22:18)
[2025-07-31] MEDS: LOSARTAN POTASSIUM 25 MG TABLET PO (08:32)
[2025-07-31] MEDS: ATORVASTATIN 20 MG TABLET PO (08:32)
[2025-07-31] MEDS: ENOXAPARIN 40 MG/0.4 ML SYRINGE SUB-Q (08:32)
[2025-07-31] MEDS: OPTI-GEN TAB 1 TABLET PO (08:32)
[2025-07-31] MEDS: DOCUSATE SODIUM 100 MG CAPSULE PO ×2 (08:32→17:26)
[2025-07-31] MEDS: FLUTICASONE PROP 220 MCG (*SP) 12 GM INHALER 2 PUFF INHALATION ×2 (10:21→20:19)
--- NOTE | 2025-07-31 14:53 | P.PNIM_ITS ---
Progress Note: A&P Assessment and Plan (1) Aggression: Code(s): R46.89 - Other symptoms and signs involving appearance and behavior Status: Acute Assessment and Plan: * Patient on soft restraints * Head CT with no acute finding * Hold Seroquel 25mg tid and Olanzapine * Valproic level pending * Daughter is working with the patient's facility to get pharmacogenetic testing done, will work with Genna Chavez [phone], the director of the facility to have a cheek swab collected * Clonidine 0.2 Mg/24 Hr patch * Psych recs appreciated 07/25: Order EKG. Psychiatry the evaluated the patient and advised to hold all QT prolonging antipsychotics. As per psychiatry, the recommendation is if nonpharmacological measures fail can consider Seroquel 25 mg b.i.d. p.r.n. which can be used only if QTC less than 500 or olanzapine 2.5 mg-5 mg IM p.r.n. for short-term severe agitation. Avoid Depakote due to previous hyperammonemia. Consider mirtazapine 7.5-15 mg HS for appetite and sleep regulation. Patient is medically cleared to discharge to inpatient psychiatric facility. 07/26: Same as above, patient received Zyprexa and Seroquel in the [employer] (given by regional account manager). Ordered 1 dose of diazepam 5 mg IV x1 07/27:Psychiatry the evaluated the patient and started patient on Zyprexa 5 mg p.o. HS and Seroquel 25 mg p.o. b.i.d. p.r.n. 07/28: Called POA and explained the risk and benefits of psychiatric medication. Discussed goals of care including hospice in future. Explained to her monitoring QTC interval in long term is nearly impossible. Hospice would be the best option considering his end-stage dementia patient still trying to get out of the bed and not cooperating with nursing st [facility], remains with sitter, patient remains confused, patient is seen by psychiatrist, since patient is receiving Seroquel 25mg twice a day and his Qtc remains stable and recommended to increase the medication to 50mg twice a day PRN for agitation, will monitor Qtc closely so does to go over 500. will also increase mirtazapine to 15mg to help sleep and continue Olanzapine, the psychiatrist is recommending patient will benefit going to specialized memory care center, will continue to monitor and plan. (2) Elevated troponin: Code(s): R79.89 - Other specified abnormal findings of blood chemistry Status: Acute Assessment and Plan: * Trend troponin * Telemetry monitoring * cardiology evaluated * continue Aspirin and Lipitor * ECHO shows ejection fraction 65-70% * As per cardiology no further intervention (3) Hyperammonemia: Code(s): E72.20 - Disorder of urea cycle metabolism, unspecified Status: Acute Assessment and Plan: * Repeat ammonia level in a.m. * Lactulose x1 * 07/24: Ammonia < 9 * resolved * Avoid Depakote (4) Acute dehydration: Code(s): E86.0 - Dehydration Status: Acute Assessment and Plan: * Will consider IV fluids if patient is not eating (5) Elevated CK: Code(s): R74.8 - Abnormal levels of other serum enzymes Status: Acute Assessment and Plan: * Hydration * CK in a.m. * 380 -> 293 (6) Low TSH level: Code(s): R79.89 - Other specified abnormal findings of blood chemistry Status: Acute Assessment and Plan: * T4 1.22 wnl, T3 pending (7) Atrial fibrillation: Code(s): I48.91 - Unspecified atrial fibrillation Status: Acute Assessment and Plan: Restarted metoprolol 12.5 mg p.o. b.i.d. Plan patient still trying to get out of the bed and not cooperating with nursing staff, remains with sitter, will continue to monitor. DVT prophylaxis on Sq Lovenox Subjective Date/time seen: 07/31/25 14:53 Interval history: 07/28: Called POA and explained the risk and benefits of psychiatric medication. Discussed goals of care including hospice in future. Explained to her monitoring QTC interval in long term is nearly impossible. 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 HS and Seroquel 25 mg p.o. b.i.d. p.r.n.. As per Psychiatry team patient will poss ibly returning to [facility] care unit if his aggression is controlled. patient still trying to get out of the bed and not cooperating with nursing staff, remains with sitter, patient remains confused, patient is seen by psychiatrist, since patient is receiving Seroquel 25mg twice a day and his Qtc remains stable and recommended to increase the medication to 50mg twice a day PRN for agitation, will monitor Qtc closely so does to go over 500. will also increase mirtazapine to 15mg to help sleep and continue Olanzapine, the psychiatrist is recommending patient will benefit going to specialized memory care center, will continue to monitor and plan. Review of Systems Review of Systems: All systems reviewed & are unremarkable except as noted in HPI and below (HPI) ROS unobtainable: Yes unobtainable due to mental status Exam Narrative: Patient is comfortable, NAD HEENT: eyes are clear and none icteric LUNGS:CTA HEART: RR S1S2 ABD: BS+, Soft and nontender Lower extremities: no edema SKIN: nonjaundiced Neuro: Started speech, AO x3, moves all 4 extremity, follows command. Objective Data Vital Signs Vital Signs: Vital Signs - 24 hr 07/30/25 16:00 07/30/25 20:00 07/31/25 00:00 Temperature 36.6 C 37.1 C Pulse Rate 66 77 Respiratory Rate 18 20 Blood Pressure 152/98 H 172/118 H Pulse Oximetry 100 99 Oxygen Delivery Room Air 07/31/25 08:00 07/31/25 08:00 07/31/25 10:24 Temperature 36.6 C Pulse Rate 68 68 Respiratory Rate 20 Blood Pressure 136/106 H Pulse Oximetry 100 Oxygen Delivery Room Air Intake/Output Intake/Output: Intake & Output 07/28/25 07/29/25 07/30/25 07/31/25 23:59 23:59 23:59 23:59 Intake Total 1200 780 440 480 Output Total 525 175 400 Balance 675 605 40 480 Meds/Results Medications: Active Medications Generic Name Dose Route Start Last Admin Trade Name Freq PRN Reason Stop Dose Admin Acetaminophen 650 mg 07/20/25 13:52 07/24/25 08:38 Acetaminophen 325 Mg Tablet PO 650 mg Q4H PRN Administration Mild Pain (1-3) or Fever Aspirin 81 mg 07/22/25 09:00 07/31/25 08:32 Aspirin 81 Mg Enteric Tablet PO 81 mg QAM CORBIN Administration Atorvastatin Calcium 20 mg 07/30/25 09:00 07/31/25 08:32 Atorvastatin 20 Mg Tablet PO 20 mg DAILY CORBIN Administration Clonidine HCl 1 patch 07/28/25 09:00 07/28/25 08:50 Clonidine 0.2 Mg/24 Hr Patch TRANSDERM 1 patch WEEKLY CORBIN Administration Clopidogrel Bisulfate 75 mg 07/30/25 09:00 07/31/25 08:32 Clopidogrel Bisulfate 75 Mg Tablet PO 75 mg DAILY CORBIN Administration Docusate Sodium 100 mg 07/20/25 17:00 07/31/25 08:32 Docusate Sodium 100 Mg Capsule PO 100 mg BID CORBIN Administration Enoxaparin Sodium 40 mg 07/23/25 09:00 07/31/25 08:32 Enoxaparin 40 Mg/0.4 Ml Syringe SUB-Q 40 mg DAILY CORBIN Administration Fluticasone Propionate 2 puff 07/30/25 08:00 07/31/25 10:21 Fluticasone Prop 220 Mcg (*Sp) 12 Gm Inhaler INHALATION 2 puff Q12HRT CORBIN Administration Losartan Potassium 25 mg 07/30/25 09:00 07/31/25 08:32 Losartan Potassium 25 Mg Tablet PO 25 mg DAILY CORBIN Administration Metoprolol Tartrate 12.5 mg 07/24/25 09:25 07/31/25 10:53 Metoprolol Tartrate 12.5 Mg Tablet PO Not Given Q12HR CORBIN Mirtazapine 7.5 mg 07/27/25 21:00 07/30/25 19:41 Mirtazapine 7.5 Mg Tablet PO 7.5 mg HS CORBIN Administration Multivitamins/Minerals 1 tablet 07/30/25 09:00 07/31/25 08:32 Opti-Gen Tab PO 1 tablet DAILY CORBIN Administration Olanzapine 5 mg 07/27/25 17:00 07/30/25 17:04 Olanzapine 5 Mg Tablet PO 5 mg 1700 CORBIN Administration Polyethylene Glycol 17 gm 07/30/25 08:03 Polyethylene Glycol 3350 17 Gm Powd.Pack PO DAILY PRN Constipation Quetiapine Fumarate 50 mg 07/31/25 08:14 07/31/25 08:32 Quetiapine Fumarate 25 Mg Tablet PO 07/31/25 15:00 50 mg Q12HR PRN Administration Agitation Quetiapine Fumarate 50 mg 07/31/25 21:00 Quetiapine Fumarate 25 Mg Tablet PO HS CORBIN Quetiapine Fumarate 25 mg 08/01/25 09:00 Quetiapine Fumarate 25 Mg Tablet PO DAILY CORBIN Senna 8.6 mg 07/30/25 08:03 Sennosides 8.6 Mg Tablet PO DAILY PRN Constipation Radiology Results: ITS Impressions Head CT 07/20/25 09:45 IMPRESSION: 1. Normal aging brain. 2. Chronic sinusitis. Chest X-Ray 07/20/25 09:49 Impression: No acute cardiopulmonary abnormality. Venous Doppler Study 07/24/25 17:42 Impression: Negative for DVT. Labs Labs: Laboratory Results - last 24 hr 07/31/25 04:01 WBC 7.4 RBC 4.32 L Hgb 12.3 L Hct 38.4 L MCV 88.9 MCH 28.5 MCHC 32.0 RDW 13.3 Plt Count 242 MPV 10.9 H Sodium 138 Potassium 3.3 L Chloride 105 Carbon Dioxide 28 Anion Gap 5 BUN 15 Creatinine 0.83 Estim Creat Clear Calc 74 Estimated GFR > 60 Glucose 95 Calcium 8.9 Magnesium 1.8 Quality VTE Prophylaxis VTE prophylaxis: mechanical ordered
--- NOTE | 2025-07-31 15:28 | ECG_ITS ---
Test Date: 2025-07-31 15:36:20 Measurements Intervals [place] Rate: 92 P: -62 CT: 141 QRS: -39 QRSD: 117 T: 64 QT: 377 QTc: 467 Interpretive Statements SINUS RHYTHM WITH FREQUENT VENTRICULAR PREMATURE COMPLEXES WITH OCCASIONAL SUPRAVENTRICULAR PREMATURE COMPLEXES LEFT AXIS DEVIATION LEFT VENTRICULAR HYPERTROPHY AND ST-T CHANGE BORDERLINE R WAVE PROGRESSION, ANTERIOR LEADS BASELINE ARTIFACT- V1-V2 ABNORMAL ECG Compared to ECG 07/29/2025 11:23:24 NO SIGNIFICANT CHANGE Electronically Signed On 07-31-2025 16:14:02 CDT by Med Carter D.O.
[2025-07-31] MEDS: MIRTAZAPINE 15 MG TABLET PO (22:24)
[2025-08-01 06:34] LABS: Hematocrit 35.8 % (42.0-52.0); Hemoglobin 11.8 g/dL (14.0-18.0); Mean Corpuscular HGB Conc 33.0 g/dl (32-36); Mean Corpuscular Hemoglobin 28.7 pg (26-34); Mean Corpuscular Volume 87.1 fl (80-100); Platelet Count Result 267 k/mm3 (150-375); Red Blood Count 4.11 M/mm3 (4.6-6.20); White Blood Count 7.6 K/mm3 (4.5-10.0)
[2025-08-01 06:52] LABS: Anion Gap 5 mmol/L (4-12); Blood Urea Nitrogen 16 mg/dL (9-20); Calcium 8.7 mg/dL (8.4-10.2); Carbon Dioxide 26 mmol/L (22-30); Chloride 107 mmol/L (98-107); Estimated CRCL calculation 69 ml/min; Estimated Glomerular Filt Rate > 60; Glucose 91 mg/dL (65-110); Magnesium 1.9 mg/dL (1.6-2.3); Potassium 3.7 mmol/L (3.4-5.0); Sodium 138 mmol/L (137-145)
[2025-08-01] MEDS: FLUTICASONE PROP 220 MCG (*SP) 12 GM INHALER 2 PUFF INHALATION ×2 (07:51→20:34)
[2025-08-01 08:00] VITALS: BP 128/74; PULSE 84; RESP 18; TEMP 36.6; O2SAT 100
[2025-08-01] MEDS: ATORVASTATIN 20 MG TABLET PO (08:08)
[2025-08-01] MEDS: OPTI-GEN TAB 1 TABLET PO (08:08)
[2025-08-01] MEDS: CLOPIDOGREL BISULFATE 75 MG TABLET PO (08:09)
[2025-08-01] MEDS: ENOXAPARIN 40 MG/0.4 ML SYRINGE SUB-Q (08:09)
[2025-08-01] MEDS: ASPIRIN 81 MG ENTERIC TABLET PO (08:09)
[2025-08-01] MEDS: LOSARTAN POTASSIUM 25 MG TABLET PO (08:09)
[2025-08-01] MEDS: DOCUSATE SODIUM 100 MG CAPSULE PO ×2 (08:09→16:48)
[2025-08-01] MEDS: METOPROLOL TARTRATE 12.5 MG TABLET PO (08:13)
--- NOTE | 2025-08-01 11:35 | ECG_ITS ---
Test Date: 2025-08-01 12:12:44 Measurements Intervals [place] Rate: 69 P: 101 ME: 205 QRS: 210 QRSD: 102 T: 137 QT: 416 QTc: 447 Interpretive Statements SINUS RHYTHM WITH FREQUENT VENTRICULAR PREMATURE COMPLEXES WITH OCCASIONAL SUPRAVENTRICULAR PREMATURE COMPLEXES ARM LEADS REVERSED BASELINE ARTIFACT- I, II, III, AVR, AVL, AVF ABNORMAL ECG Compared to ECG 07/31/2025 15:36:20 NO SIGNIFICANT CHANGE Electronically Signed On 08-01-2025 12:22:26 CDT by Med Carter D.O.
--- NOTE | 2025-08-01 12:19 | ECG_ITS ---
Test Date: 2025-08-01 12:22:02 Measurements Intervals [place] Rate: 72 P: 85 ME: 212 QRS: -30 QRSD: 117 T: 0 QT: 418 QTc: 458 Interpretive Statements SINUS RHYTHM WITH FREQUENT VENTRICULAR PREMATURE COMPLEXES INTRAVENTRICULAR CONDUCTION DELAY LEFT VENTRICULAR HYPERTROPHY AND ST-T CHANGE BORDERLINE ST-T WAVE ABNORMALITY- ANTEROLATERAL LEADS ABNORMAL ECG Compared to ECG 08/01/2025 12:12:44 NO SIGNIFICANT CHANGE Electronically Signed On 08-01-2025 13:17:53 CDT by Med Carter D.O.
--- NOTE | 2025-08-01 15:07 | P.PNIM_ITS ---
Progress Note: A&P Assessment and Plan (1) Aggression: Code(s): R46.89 - Other symptoms and signs involving appearance and behavior Status: Acute Assessment and Plan: * Patient on soft restraints * Head CT with no acute finding * Hold Seroquel 25mg tid and Olanzapine * Valproic level pending * Daughter is working with the patient's facility to get pharmacogenetic testing done, will work with Genna Chavez [phone], the director of the facility to have a cheek swab collected * Clonidine 0.2 Mg/24 Hr patch * Psych recs appreciated 07/25: Order EKG. Psychiatry the evaluated the patient and advised to hold all QT prolonging antipsychotics. As per psychiatry, the recommendation is if nonpharmacological measures fail can consider Seroquel 25 mg b.i.d. p.r.n. which can be used only if QTC less than 500 or olanzapine 2.5 mg-5 mg IM p.r.n. for short-term severe agitation. Avoid Depakote due to previous hyperammonemia. Consider mirtazapine 7.5-15 mg HS for appetite and sleep regulation. Patient is medically cleared to discharge to inpatient psychiatric facility. 07/26: Same as above, patient received Zyprexa and Seroquel in the vine pruner (given by skin care technician). Ordered 1 dose of diazepam 5 mg IV x1 07/27:Psychiatry the evaluated the patient and started patient on Zyprexa 5 mg p.o. HS and Seroquel 25 mg p.o. b.i.d. p.r.n. 07/28: Called POA and explained the risk and benefits of psychiatric medication. Discussed goals of care including hospice in future. Explained to her monitoring QTC interval in [place] [facility] is nearly impossible. Hospice would be the best option considering his end-stage dementia patient still trying to get out of the bed and not cooperating with nursing [facility], remains with sitter, patient remains confused, patient is seen by psychiatrist, since patient is receiving Seroquel 25mg twice a day and his Qtc remains stable and recommended to increase the medication to 50mg twice a day PRN for agitation, will monitor Qtc closely so does to go over 500. will also increase mirtazapine to 15mg to help sleep and continue Olanzapine, the psychiatrist is recommending patient will benefit going to specialized memory care center, will continue to monitor and plan. (2) Elevated troponin: Code(s): R79.89 - Other specified abnormal findings of blood chemistry Status: Acute Assessment and Plan: * Trend troponin * Telemetry monitoring * cardiology evaluated * continue Aspirin and Lipitor * ECHO shows ejection fraction 65-70% * As per cardiology no further intervention (3) Hyperammonemia: Code(s): E72.20 - Disorder of urea cycle metabolism, unspecified Status: Acute Assessment and Plan: * Repeat ammonia level in a.m. * Lactulose x1 * 07/24: Ammonia < 9 * resolved * Avoid Depakote (4) Acute dehydration: Code(s): E86.0 - Dehydration Status: Acute Assessment and Plan: * Will consider IV fluids if patient is not eating (5) Elevated CK: Code(s): R74.8 - Abnormal levels of other serum enzymes Status: Acute Assessment and Plan: * Hydration * CK in a.m. * 380 -> 293 (6) Low TSH level: Code(s): R79.89 - Other specified abnormal findings of blood chemistry Status: Acute Assessment and Plan: * T4 1.22 wnl, T3 pending (7) Atrial fibrillation: Code(s): I48.91 - Unspecified atrial fibrillation Status: Acute Assessment and Plan: Restarted metoprolol 12.5 mg p.o. b.i.d. Plan patient still trying to get out of the bed and not cooperating with nursing staff, remains with sitter, will continue to monitor. patient still trying to get out of the bed and not cooperating with nursing staff, remains with sitter, patient remains confused, patient is seen by psychiatrist, since patient is receiving Seroquel 25mg twice a day and his Qtc remains stable and recommended to increase the medication to 50mg twice a day PRN for agitation, will monitor Qtc closely so does to go over 500. will also increase mirtazapine to 15mg to help sleep and continue Olanzapine, however patient symptoms are manageable during the day he cooperative however at night patient more agitated and aggressive, will discuss with the psychiatrist to possible increase night time medications, the psychiatrist is recommending patient will benefit going to specialized memory care center, will continue to monitor and plan. DVT prophylaxis on Sq Lovenox Subjective Date/time seen: 08/01/25 15:07 Interval history: 07/28: Called POA and explained the risk and benefits of psychiatric medication. Discussed goals of care including hospice in future. Explained to her monitoring QTC interval in [place] [facility] is nearly impossible. 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 HS and Seroquel 25 mg p.o. b.i.d. p.r.n.. As per Psychiatry team patient will possibly returning to [facility] care unit if his aggression is controlled. patient still trying to get out of the bed and not cooperating with nursing staff, remains with sitter, patient remains confused, patient is seen by psychiatrist, since patient is receiving Seroquel 25mg twice a day and his Qtc remains stable and recommended to increase the medication to 50mg twice a day PRN for agitation, will monitor Qtc closely so does to go over 500. will also increase mirtazapine to 15mg to help sleep and continue Olanzapine, however patient symptoms are manageable during the day he cooperative however at night patient more agitated and aggressive, will discuss with the psychiatrist to possible increase night time medications, the psychiatrist is recommending patient will benefit going to specialized memory care center, will continue to monitor and plan. Review of Systems Review of Systems: All systems reviewed & are unremarkable except as noted in HPI and below (HPI) ROS unobtainable: Yes unobtainable due to mental status Exam Narrative: Patient is comfortable, NAD HEENT: eyes are clear and none icteric LUNGS:CTA HEART: RR S1S2 ABD: BS+, Soft and nontender Lower extremities: no edema SKIN: nonjaundiced Neuro: Started speech, AO x3, moves all 4 extremity, follows command. Objective Data Vital Signs Vital Signs: Vital Signs - 24 hr 07/31/25 16:00 07/31/25 20:00 07/31/25 20:21 Temperature 36.6 C Pulse Rate 86 56 L Respiratory Rate 18 20 Blood Pressure 140/69 Pulse Oximetry 100 Oxygen Delivery Room Air 07/31/25 22:18 07/31/25 22:29 08/01/25 08:00 Temperature 36.6 C Pulse Rate 80 80 84 Respiratory Rate 20 18 Blood Pressure 157/93 H 128/74 Pulse Oximetry 98 100 Oxygen Delivery 08/01/25 08:00 Temperature Pulse Rate Respiratory Rate Blood Pressure Pulse Oximetry Oxygen Delivery Room Air Intake/Output Intake/Output: Intake & Output 07/29/25 07/30/25 07/31/25 08/01/25 23:59 23:59 23:59 23:59 Intake Total 780 440 720 240 Output Total 175 400 Balance 605 40 720 240 Meds/Results Medications: Active Medications Generic Name Dose Route Start Last Admin Trade Name Freq PRN Reason Stop Dose Admin Acetaminophen 650 mg 07/20/25 13:52 07/24/25 08:38 Acetaminophen 325 Mg Tablet PO 650 mg Q4H PRN Administration Mild Pain (1-3) or Fever Aspirin 81 mg 07/22/25 09:00 08/01/25 08:09 Aspirin 81 Mg Enteric Tablet PO 81 mg QAM CORBIN Administration Atorvastatin Calcium 20 mg 07/30/25 09:00 08/01/25 08:08 Atorvastatin 20 Mg Tablet PO 20 mg DAILY CORBIN Administration Clonidine HCl 1 patch 07/28/25 09:00 07/28/25 08:50 Clonidine 0.2 Mg/24 Hr Patch TRANSDERM 1 patch WEEKLY CORBIN Administration Clopidogrel Bisulfate 75 mg 07/30/25 09:00 08/01/25 08:09 Clopidogrel Bisulfate 75 Mg Tablet PO 75 mg DAILY CORBIN Administration Docusate Sodium 100 mg 07/20/25 17:00 08/01/25 08:09 Docusate Sodium 100 Mg Capsule PO 100 mg BID CORBIN Administration Enoxaparin Sodium 40 mg 07/23/25 09:00 08/01/25 08:09 Enoxaparin 40 Mg/0.4 Ml Syringe SUB-Q 40 mg DAILY CORBIN Administration Fluticasone Propionate 2 puff 07/30/25 08:00 08/01/25 07:51 Fluticasone Prop 220 Mcg (*Sp) 12 Gm Inhaler INHALATION 2 puff Q12HRT CORBIN Administration Losartan Potassium 25 mg 07/30/25 09:00 08/01/25 08:09 Losartan Potassium 25 Mg Tablet PO 25 mg DAILY CORBIN Administration Metoprolol Tartrate 12.5 mg 07/24/25 09:25 08/01/25 08:13 Metoprolol Tartrate 12.5 Mg Tablet PO 12.5 mg Q12HR CORBIN Administration Mirtazapine 15 mg 07/31/25 21:00 07/31/25 22:24 Mirtazapine 15 Mg Tablet PO 15 mg HS CORBIN Administration Multivitamins/Minerals 1 tablet 07/30/25 09:00 08/01/25 08:08 Opti-Gen Tab PO 1 tablet DAILY CORBIN Administration Olanzapine 5 mg 07/27/25 17:00 07/31/25 17:26 Olanzapine 5 Mg Tablet PO 5 mg 1700 CORBIN Administration Polyethylene Glycol 17 gm 07/30/25 08:03 Polyethylene Glycol 3350 17 Gm Powd.Pack PO DAILY PRN Constipation Quetiapine Fumarate 50 mg 07/31/25 21:00 07/31/25 22:24 Quetiapine Fumarate 25 Mg Tablet PO 50 mg HS CORBIN Administration Quetiapine Fumarate 25 mg 08/01/25 09:00 08/01/25 08:09 Quetiapine Fumarate 25 Mg Tablet PO 25 mg DAILY CORBIN Administration Senna 8.6 mg 07/30/25 08:03 Sennosides 8.6 Mg Tablet PO DAILY PRN Constipation Radiology Results: ITS Impressions Head CT 07/20/25 09:45 IMPRESSION: 1. Normal aging brain. 2. Chronic sinusitis. Chest X-Ray 07/20/25 09:49 Impression: No acute cardiopulmonary abnormality. Venous Doppler Study 07/24/25 17:42 Impression: Negative for DVT. Labs Labs: Laboratory Results - last 24 hr 08/01/25 06:11 WBC 7.6 RBC 4.11 L Hgb 11.8 L Hct 35.8 L MCV 87.1 MCH 28.7 MCHC 33.0 RDW 13.5 Plt Count 267 MPV 10.6 H Sodium 138 Potassium 3.7 Chloride 107 Carbon Dioxide 26 Anion Gap 5 BUN 16 Creatinine 0.89 Estim Creat Clear Calc 69 Estimated GFR > 60 Glucose 91 Calcium 8.7 Magnesium 1.9 Quality VTE Prophylaxis VTE prophylaxis: mechanical ordered
[2025-08-01 16:00] VITALS: BP 148/91; PULSE 93; RESP 20; TEMP 36.4; O2SAT 96
[2025-08-01 20:00] VITALS: BP 98/83; PULSE 62; RESP 20; TEMP 36.3; O2SAT 94
[2025-08-01 20:41] VITALS: PULSE 62
[2025-08-02] VITALS (8 sets, daily range): BP systolic 109–141; BP diastolic 64–85; PULSE 48–99; RESP 18–20; TEMP 36.4–36.9; O2SAT 92–99
[2025-08-02 03:47] LABS: Hematocrit 36.5 % (42.0-52.0); Hemoglobin 11.7 g/dL (14.0-18.0); Mean Corpuscular HGB Conc 32.1 g/dl (32-36); Mean Corpuscular Hemoglobin 28.3 pg (26-34); Mean Corpuscular Volume 88.4 fl (80-100); Platelet Count Result 259 k/mm3 (150-375); Red Blood Count 4.13 M/mm3 (4.6-6.20); White Blood Count 7.6 K/mm3 (4.5-10.0)
[2025-08-02 04:14] LABS: Anion Gap 5 mmol/L (4-12); Blood Urea Nitrogen 16 mg/dL (9-20); Calcium 9.0 mg/dL (8.4-10.2); Carbon Dioxide 26 mmol/L (22-30); Chloride 107 mmol/L (98-107); Estimated CRCL calculation 69 ml/min; Estimated Glomerular Filt Rate > 60; Glucose 95 mg/dL (65-110); Magnesium 1.9 mg/dL (1.6-2.3); Potassium 3.8 mmol/L (3.4-5.0); Sodium 138 mmol/L (137-145)
--- NOTE | 2025-08-02 07:15 | WPDPNPSYCH ---
Progress Note: A&P Assessment and Plan (1) Lewy body dementia with agitation: Code(s): G31.83 - Neurocognitive disorder with Lewy bodies; F02.811 - Dementia in other diseases classified elsewhere, unspecified severity, with agitation Status: Acute (2) Aggression: Code(s): R46.89 - Other symptoms and signs involving appearance and behavior Status: Acute Plan Medications adjusted yesterday- continue quetiapine 50mg BID PRN, olanzapine 5mg qHS, trazodone 50mg qHS. Continue to monitor QTc- will hold off on further adjustments until today's EKG resulted but overall appears to be improved from yesterday thus far. Disposition: memory care unit/facility versus hospice. Once again, patient is not expected to be completely free from behaviors due to Lewy Body Dementia diagnosis and expected disease process. If hospice is declined, memory care unit or facility is likely best and safest option for him, as he will require specialized care. Psychiatry will continue to follow along to assist with optimizing medication for stabilization. Review of Systems Psychiatric: Psychiatric: Reports as per HPI Exam Psych: Mental Status: other (Altered ) Affect: Blunted affect present Thought process: Illogical thought process present and Impoverished thought process present Insight: Poor insight present (Psych) Judgement: Poor judgement present (Psych) Objective Data Vital Signs Vital Signs: Vital Signs - 24 hr 08/01/25 08:00 08/01/25 08:00 08/01/25 16:00 Temperature 97.8 F 97.6 F Pulse Rate 84 93 Respiratory Rate 18 20 Blood Pressure 128/74 148/91 H Pulse Oximetry 100 96 Oxygen Delivery Room Air 08/01/25 20:00 08/01/25 20:00 08/01/25 20:41 Temperature 97.4 F L Pulse Rate 62 62 Respiratory Rate 20 Blood Pressure 98/83 L Pulse Oximetry 94 Oxygen Delivery Room Air 08/02/25 04:00 Temperature 97.8 F Pulse Rate 55 L Respiratory Rate 18 Blood Pressure 109/85 Pulse Oximetry 92 Oxygen Delivery Intake/Output Intake/Output: Intake & Output 07/30/25 07/31/25 08/01/25 08/02/25 23:59 23:59 23:59 23:59 Intake Total 440 720 480 Output Total 400 Balance 40 720 480 Meds/Results Medications: Active Medications Generic Name Dose Route Start Last Admin Trade Name Freq PRN Reason Stop Dose Admin Acetaminophen 650 mg 07/20/25 13:52 07/24/25 08:38 Acetaminophen 325 Mg Tablet PO 650 mg Q4H PRN Administration Mild Pain (1-3) or Fever Aspirin 81 mg 07/22/25 09:00 08/01/25 08:09 Aspirin 81 Mg Enteric Tablet PO 81 mg QAM CORBIN Administration Atorvastatin Calcium 20 mg 07/30/25 09:00 08/01/25 08:08 Atorvastatin 20 Mg Tablet PO 20 mg DAILY CORBIN Administration Clonidine HCl 1 patch 07/28/25 09:00 07/28/25 08:50 Clonidine 0.2 Mg/24 Hr Patch TRANSDERM 1 patch WEEKLY CORBIN Administration Clopidogrel Bisulfate 75 mg 07/30/25 09:00 08/01/25 08:09 Clopidogrel Bisulfate 75 Mg Tablet PO 75 mg DAILY CORBIN Administration Docusate Sodium 100 mg 07/20/25 17:00 08/01/25 16:48 Docusate Sodium 100 Mg Capsule PO 100 mg BID CORBIN Administration Enoxaparin Sodium 40 mg 07/23/25 09:00 08/01/25 08:09 Enoxaparin 40 Mg/0.4 Ml Syringe SUB-Q 40 mg DAILY CORBIN Administration Fluticasone Propionate 2 puff 07/30/25 08:00 08/01/25 20:34 Fluticasone Prop 220 Mcg (*Sp) 12 Gm Inhaler INHALATION 2 puff Q12HRT CORBIN Administration Losartan Potassium 25 mg 07/30/25 09:00 08/01/25 08:09 Losartan Potassium 25 Mg Tablet PO 25 mg DAILY CORBIN Administration Metoprolol Tartrate 12.5 mg 07/24/25 09:25 08/01/25 20:41 Metoprolol Tartrate 12.5 Mg Tablet PO Not Given Q12HR [facility] Multivitamins/Minerals 1 tablet 07/30/25 09:00 08/01/25 08:08 Opti-Gen Tab PO 1 tablet DAILY CORBIN Administration Olanzapine 5 mg 07/27/25 17:00 08/01/25 16:48 Olanzapine 5 Mg Tablet PO 5 mg 1700 CORBIN Administration Polyethylene Glycol 17 gm 07/30/25 08:03 Polyethylene Glycol 3350 17 Gm Powd.Pack PO DAILY PRN Constipation Quetiapine Fumarate 50 mg 07/31/25 21:00 08/01/25 20:41 Quetiapine Fumarate 25 Mg Tablet PO 50 mg HS CORBIN Administration Quetiapine Fumarate 50 mg 08/02/25 09:00 Quetiapine Fumarate 25 Mg Tablet PO DAILY CORBIN Senna 8.6 mg 07/30/25 08:03 Sennosides 8.6 Mg Tablet PO DAILY PRN Constipation Trazodone HCl 50 mg 08/01/25 21:00 08/01/25 20:41 Trazodone Hcl 50 Mg Tablet PO 50 mg HS CORBIN Administration Radiology Results: ITS Impressions Head CT 07/20/25 09:45 IMPRESSION: 1. Normal aging brain. 2. Chronic sinusitis. Chest X-Ray 07/20/25 09:49 Impression: No acute cardiopulmonary abnormality. Venous Doppler Study 07/24/25 17:42 Impression: Negative for DVT. Labs Labs: Laboratory Results - last 24 hr 08/02/25 03:38 WBC 7.6 RBC 4.13 L Hgb 11.7 L Hct 36.5 L MCV 88.4 MCH 28.3 MCHC 32.1 RDW 13.5 Plt Count 259 MPV 10.7 H Sodium 138 Potassium 3.8 Chloride 107 Carbon Dioxide 26 Anion Gap 5 BUN 16 Creatinine 0.90 Estim Creat Clear Calc 69 Estimated GFR > 60 Glucose 95 Calcium 9.0 Magnesium 1.9 Subjective Date/time seen: 08/02/25 07:15 Interval history: Patient last seen on 07/31. Since last follow up, he continued to present with agitation and behavioral concerns. His QTc has remained stable over the past several days. Yesterday afternoon, he became agitated so quetiapine was subsequently increased to 50mg BID due to ineffectiveness at lower doses. Per previous nursing reports, his agitation appeared to worsen in the evenings and throughout the night, patient was not sleeping likely contributing to delirium superimposing on dementia and worsening agitation. Subsequently, mirtazapine was discontinued and trazodone 50mg initiated last night. Per last night nursing reports, he did sleep better and was less active/agitated throughout the night. He is sitting calmly at bedside this morning upon evaluation, able to answer simple questions.
--- NOTE | 2025-08-02 08:35 | ECG_ITS ---
Test Date: 2025-08-02 08:55:35 Measurements Intervals Vance Rate: 82 P: 97 WA: 196 QRS: -23 QRSD: 108 T: 66 QT: 415 QTc: 486 Interpretive Statements SINUS RHYTHM WITH FREQUENT VENTRICULAR PREMATURE COMPLEXES WITH OCCASIONAL SUPRAVENTRICULAR PREMATURE COMPLEXES INTRAVENTRICULAR CONDUCTION DELAY LEFT VENTRICULAR HYPERTROPHY WITH ST-T CHANGE BASELINE ARTIFACT- I, III ABNORMAL ECG Compared to ECG 08/01/2025 12:22:02 NO SIGNIFICANT CHANGE Electronically Signed On 08-02-2025 09:10:38 CDT by Med Carter D.O.
[2025-08-02] MEDS: FLUTICASONE PROP 220 MCG (*SP) 12 GM INHALER 2 PUFF INHALATION ×2 (08:45→20:35)
[2025-08-02] MEDS: ENOXAPARIN 40 MG/0.4 ML SYRINGE SUB-Q (08:46)
[2025-08-02] MEDS: DOCUSATE SODIUM 100 MG CAPSULE PO ×2 (08:47→16:06)
[2025-08-02] MEDS: ATORVASTATIN 20 MG TABLET PO (08:47)
[2025-08-02] MEDS: ASPIRIN 81 MG ENTERIC TABLET PO (08:47)
[2025-08-02] MEDS: CLOPIDOGREL BISULFATE 75 MG TABLET PO (08:47)
[2025-08-02] MEDS: OPTI-GEN TAB 1 TABLET PO (08:47)
--- NOTE | 2025-08-02 10:44 | PCNWS ---
Weekly nutritional screen. Patient is tolerating current diet with adequate intake. No weight loss reported. No nutritional needs at this time.
--- NOTE | 2025-08-02 12:30 | P.PNIM_ITS ---
Progress Note: A&P Assessment and Plan (1) Aggression: Code(s): R46.89 - Other symptoms and signs involving appearance and behavior Status: Acute Assessment and Plan: * Patient on soft restraints * Head CT with no acute finding * Hold Seroquel 25mg tid and Olanzapine * Valproic level pending * Daughter is working with the patient's facility to get pharmacogenetic testing done, will work with Genna Chavez [phone], the director of the facility to have a cheek swab collected * Clonidine 0.2 Mg/24 Hr patch * Psych recs appreciated 07/25: Order EKG. Psychiatry the evaluated the patient and advised to hold all QT prolonging antipsychotics. As per psychiatry, the recommendation is if nonpharmacological measures fail can consider Seroquel 25 mg b.i.d. p.r.n. which can be used only if QTC less than 500 or olanzapine 2.5 mg-5 mg IM p.r.n. for short-term severe agitation. Avoid Depakote due to previous hyperammonemia. Consider mirtazapine 7.5-15 mg HS for appetite and sleep regulation. Patient is medically cleared to discharge to inpatient psychiatric facility. 07/26: Same as above, patient received Zyprexa and Seroquel in the cook vacuum kettle (given by contracts officer). Ordered 1 dose of diazepam 5 mg IV x1 07/27:Psychiatry the evaluated the patient and started patient on Zyprexa 5 mg p.o. HS and Seroquel 25 mg p.o. b.i.d. p.r.n. 07/28: Called POA and explained the risk and benefits of psychiatric medication. Discussed goals of care including hospice in future. Explained to her monitoring QTC interval in skilled nursing is nearly impossible. Hospice would be the best option considering his end-stage dementia patient still trying to get out of the bed and not cooperating with nursing [facility], remains with sitter, patient remains confused, patient is seen by psychiatrist, since patient is receiving Seroquel 25mg twice a day and his Qtc remains stable and recommended to increase the medication to 50mg twice a day PRN for agitation, will monitor Qtc closely so does to go over 500. will also increase mirtazapine to 15mg to help sleep and continue Olanzapine, however patient symptoms are manageable during the day he cooperative however at night patient more agitated and aggressive, will discuss with the psychiatrist to possible increase night time medications, patient was seen by psychiatrist, austen mirtazapine started patient on trazodone at bedtime which did help and patient was able to rest and sleep last night, patient Qtc remains stable, the psychiatrist is recommending patient will benefit going to specialized memory care center, will continue to monitor and plan. (2) Elevated troponin: Code(s): R79.89 - Other specified abnormal findings of blood chemistry Status: Acute Assessment and Plan: * Trend troponin * Telemetry monitoring * cardiology evaluated * continue Aspirin and Lipitor * ECHO shows ejection fraction 65-70% * As per cardiology no further intervention (3) Hyperammonemia: Code(s): E72.20 - Disorder of urea cycle metabolism, unspecified Status: Acute Assessment and Plan: * Repeat ammonia level in a.m. * Lactulose x1 * 07/24: Ammonia < 9 * resolved * Avoid Depakote (4) Acute dehydration: Code(s): E86.0 - Dehydration Status: Acute Assessment and Plan: * Will consider IV fluids if patient is not eating (5) Elevated CK: Code(s): R74.8 - Abnormal levels of other serum enzymes Status: Acute Assessment and Plan: * Hydration * CK in a.m. * 380 -> 293 (6) Low TSH level: Code(s): R79.89 - Other specified abnormal findings of blood chemistry Status: Acute Assessment and Plan: * T4 1.22 wnl, T3 pending (7) Atrial fibrillation: Code(s): I48.91 - Unspecified atrial fibrillation Status: Acute Assessment and Plan: Restarted metoprolol 12.5 mg p.o. b.i.d. Plan patient still trying to get out of the bed and not cooperating with nursing staff, remains with sitter, will continue to monitor. patient still trying to get out of the bed and not cooperating with nursing staff, remains with sitter, patient remains confused, patient is seen by psychiatrist, since patient is receiving Seroquel 25mg twice a day and his Qtc remains stable and recommended to increase the medication to 50mg twice a day PRN for agitation, will monitor Qtc closely so does to go over 500. will also increase mirtazapine to 15mg to help sleep and continue Olanzapine, however patient symptoms are manageable during the day he cooperative however at night patient more agitated and aggressive, will discuss with the psychiatrist to possible increase night time medications, patient was seen by psychiatristausten mirtazapine started patient on trazodone at bedtime which did help and patient was able to rest and sleep last night, patient Qtc remains stable, the psychiatrist is recommending patient will benefit going to specialized memory care center, will continue to monitor and plan. DVT prophylaxis on Sq Lovenox Subjective Date/time seen: 08/02/25 12:30 Interval history: 07/28: Called POA and explained the risk and benefits of psychiatric medication. Discussed goals of care including hospice in future. Explained to her monitoring QTC interval in skilled nursing is nearly impossible. 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 HS and Seroquel 25 mg p.o. b.i.d. p.r.n.. As per Psychiatry team patient will possibly returning to [facility] unit if his aggression is controlled. patient still trying to get out of the bed and not cooperating with nursing staff, remains with sitter, patient remains confused, patient is seen by p sychiatrist, since patient is receiving Seroquel 25mg twice a day and his Qtc remains stable and recommended to increase the medication to 50mg twice a day PRN for agitation, will monitor Qtc closely so does to go over 500. will also increase mirtazapine to 15mg to help sleep and continue Olanzapine, however patient symptoms are manageable during the day he cooperative however at night patient more agitated and aggressive, will discuss with the psychiatrist to possible increase night time medications, patient was seen by psychiatrausten beckett mirtazapine started patient on trazodone at bedtime which did help and patient was able to rest and sleep last night, patient Qtc remains stable, the psychiatrist is recommending patient will benefit going to specialized memory care center, will continue to monitor and plan. Review of Systems Review of Systems: All systems reviewed & are unremarkable except as noted in HPI and below (HPI) ROS unobtainable: Yes unobtainable due to mental status Exam Narrative: Patient is comfortable, NAD HEENT: eyes are clear and none icteric LUNGS:CTA HEART: RR S1S2 ABD: BS+, Soft and nontender Lower extremities: no edema SKIN: nonjaundiced Neuro: Started speech, AO x3, moves all 4 extremity, follows command. Objective Data Vital Signs Vital Signs: Vital Signs - 24 hr 08/01/25 16:00 08/01/25 20:00 08/01/25 20:00 Temperature 36.4 C 36.3 C L Pulse Rate 93 62 Respiratory Rate 20 20 Blood Pressure 148/91 H 98/83 L Pulse Oximetry 96 94 Oxygen Delivery Room Air 08/01/25 20:41 08/02/25 04:00 08/02/25 08:00 Temperature 36.6 C 36.7 C Pulse Rate 62 55 L 73 Respiratory Rate 18 20 Blood Pressure 109/85 109/64 Pulse Oximetry 92 99 Oxygen Delivery 08/02/25 08:00 08/02/25 08:48 08/02/25 08:55 Temperature Pulse Rate 99 73 Respiratory Rate 19 Blood Pressure Pulse Oximetry Oxygen Delivery Room Air Intake/Output Intake/Output: Intake & Output 07/30/25 07/31/25 08/01/25 08/02/25 23:59 23:59 23:59 23:59 Intake Total 440 720 480 240 Output Total 400 Balance 40 720 480 240 Meds/Results Medications: Active Medications Generic Name Dose Route Start Last Admin Trade Name Freq PRN Reason Stop Dose Admin Acetaminophen 650 mg 07/20/25 13:52 07/24/25 08:38 Acetaminophen 325 Mg Tablet PO 650 mg Q4H PRN Administration Mild Pain (1-3) or Fever Aspirin 81 mg 07/22/25 09:00 08/02/25 08:47 Aspirin 81 Mg Enteric Tablet PO 81 mg QAM CORBIN Administration Atorvastatin Calcium 20 mg 07/30/25 09:00 08/02/25 08:47 Atorvastatin 20 Mg Tablet PO 20 mg DAILY CORBIN Administration Clonidine HCl 1 patch 07/28/25 09:00 07/28/25 08:50 Clonidine 0.2 Mg/24 Hr Patch TRANSDERM 1 patch WEEKLY CORBIN Administration Clopidogrel Bisulfate 75 mg 07/30/25 09:00 08/02/25 08:47 Clopidogrel Bisulfate 75 Mg Tablet PO 75 mg DAILY CORBIN Administration Docusate Sodium 100 mg 07/20/25 17:00 08/02/25 08:47 Docusate Sodium 100 Mg Capsule PO 100 mg BID CORBIN Administration Enoxaparin Sodium 40 mg 07/23/25 09:00 08/02/25 08:46 Enoxaparin 40 Mg/0.4 Ml Syringe SUB-Q 40 mg DAILY CORBIN Administration Fluticasone Propionate 2 puff 07/30/25 08:00 08/02/25 09:20 Fluticasone Prop 220 Mcg (*Sp) 12 Gm Inhaler INHALATION Not Given Q12HRT CORBIN Losartan Potassium 25 mg 07/30/25 09:00 08/02/25 08:49 Losartan Potassium 25 Mg Tablet PO Not Given DAILY CORBIN Metoprolol Tartrate 12.5 mg 07/24/25 09:25 08/02/25 08:55 Metoprolol Tartrate 12.5 Mg Tablet PO Not Given Q12HR CORBIN Multivitamins/Minerals 1 tablet 07/30/25 09:00 08/02/25 08:47 Opti-Gen Tab PO 1 tablet DAILY CORBIN Administration Olanzapine 5 mg 07/27/25 17:00 08/01/25 16:48 Olanzapine 5 Mg Tablet PO 5 mg 1700 CORBIN Administration Polyethylene Glycol 17 gm 07/30/25 08:03 Polyethylene Glycol 3350 17 Gm Powd.Pack PO DAILY PRN Constipation Quetiapine Fumarate 50 mg 07/31/25 21:00 08/01/25 20:41 Quetiapine Fumarate 25 Mg Tablet PO 50 mg HS CORBIN Administration Quetiapine Fumarate 50 mg 08/02/25 09:00 08/02/25 08:47 Quetiapine Fumarate 25 Mg Tablet PO 50 mg DAILY CORBIN Administration Senna 8.6 mg 07/30/25 08:03 Sennosides 8.6 Mg Tablet PO DAILY PRN Constipation Trazodone HCl 50 mg 08/01/25 21:00 08/01/25 20:41 Trazodone Hcl 50 Mg Tablet PO 50 mg HS CORBIN Administration Radiology Results: ITS Impressions Head CT 07/20/25 09:45 IMPRESSION: 1. Normal aging brain. 2. Chronic sinusitis. Chest X-Ray 07/20/25 09:49 Impression: No acute cardiopulmonary abnormality. Venous Doppler Study 07/24/25 17:42 Impression: Negative for DVT. Labs Labs: Laboratory Results - last 24 hr 08/02/25 03:38 WBC 7.6 RBC 4.13 L Hgb 11.7 L Hct 36.5 L MCV 88.4 MCH 28.3 MCHC 32.1 RDW 13.5 Plt Count 259 MPV 10.7 H Sodium 138 Potassium 3.8 Chloride 107 Carbon Dioxide 26 Anion Gap 5 BUN 16 Creatinine 0.90 Estim Creat Clear Calc 69 Estimated GFR > 60 Glucose 95 Calcium 9.0 Magnesium 1.9 Quality VTE Prophylaxis VTE prophylaxis: mechanical ordered
[2025-08-03] VITALS (7 sets, daily range): BP systolic 105–167; BP diastolic 65–104; PULSE 50–76; RESP 18–20; TEMP 36.5–36.7; O2SAT 97–100
[2025-08-03 04:08] LABS: Hematocrit 34.1 % (42.0-52.0); Hemoglobin 11.0 g/dL (14.0-18.0); Mean Corpuscular HGB Conc 32.3 g/dl (32-36); Mean Corpuscular Hemoglobin 28.6 pg (26-34); Mean Corpuscular Volume 88.6 fl (80-100); Platelet Count Result 254 k/mm3 (150-375); Red Blood Count 3.85 M/mm3 (4.6-6.20); White Blood Count 6.7 K/mm3 (4.5-10.0)
[2025-08-03 04:29] LABS: Anion Gap 4 mmol/L (4-12); Blood Urea Nitrogen 22 mg/dL (9-20); Calcium 8.6 mg/dL (8.4-10.2); Carbon Dioxide 24 mmol/L (22-30); Chloride 110 mmol/L (98-107); Estimated CRCL calculation 65 ml/min; Estimated Glomerular Filt Rate > 60; Glucose 115 mg/dL (65-110); Magnesium 1.9 mg/dL (1.6-2.3); Potassium 4.0 mmol/L (3.4-5.0); Sodium 138 mmol/L (137-145)
[2025-08-03] MEDS: OPTI-GEN TAB 1 TABLET PO (08:18)
[2025-08-03] MEDS: ATORVASTATIN 20 MG TABLET PO (08:18)
[2025-08-03] MEDS: ENOXAPARIN 40 MG/0.4 ML SYRINGE SUB-Q (08:19)
[2025-08-03] MEDS: DOCUSATE SODIUM 100 MG CAPSULE PO ×2 (08:19→17:05)
[2025-08-03] MEDS: CLOPIDOGREL BISULFATE 75 MG TABLET PO (08:19)
[2025-08-03] MEDS: LOSARTAN POTASSIUM 25 MG TABLET PO (08:19)
[2025-08-03] MEDS: METOPROLOL TARTRATE 12.5 MG TABLET PO ×2 (08:19→20:13)
[2025-08-03] MEDS: ASPIRIN 81 MG ENTERIC TABLET PO (08:19)
[2025-08-03] MEDS: FLUTICASONE PROP 220 MCG (*SP) 12 GM INHALER 2 PUFF INHALATION ×2 (09:08→20:32)
--- NOTE | 2025-08-03 09:09 | P.PNIM_ITS ---
Progress Note: A&P Assessment and Plan (1) Aggression: Code(s): R46.89 - Other symptoms and signs involving appearance and behavior Status: Acute Assessment and Plan: Likely secondary to dementia and delirium Overall improved. Continue her Remeron, Seroquel, trazodone and Zyprexa as as per Psychiatry recommendations. Continue behavioral modifications. Sitter bedside Patient is awaiting placement. (2) Elevated troponin: Code(s): R79.89 - Other specified abnormal findings of blood chemistry Status: Acute Assessment and Plan: Patient was evaluated by Cardiology and no further recommendations. Continue Plavix, Aspirin and Lipitor * ECHO shows ejection fraction 65-70% (3) Hyperammonemia: Code(s): E72.20 - Disorder of urea cycle metabolism, unspecified Status: Acute Assessment and Plan: * Repeat ammonia level in a.m. * Lactulose x1 * 07/24: Ammonia < 9 * resolved * Avoid Depakote (4) Acute dehydration: Code(s): E86.0 - Dehydration Status: Acute Assessment and Plan: Resolved with IV fluids. Patient now eating p.o. diet (5) Elevated CK: Code(s): R74.8 - Abnormal levels of other serum enzymes Status: Acute Assessment and Plan: Improved with IV fluid (6) Low TSH level: Code(s): R79.89 - Other specified abnormal findings of blood chemistry Status: Acute Assessment and Plan: T4 1.22 wnl, T3 within normal limits (7) Atrial fibrillation: Code(s): I48.91 - Unspecified atrial fibrillation Status: Acute Assessment and Plan: Continue metoprolol 12.5 mg p.o. b.i.d. Patient not a candidate for anticoagulation but is on antiplatelet therapy Plan PT OT DVT prophylaxis on Sq Lovenox Subjective Date/time seen: 08/03/25 Overnight events with. No aggressive behavior agitation overnight. Patient slept well. Denies any complaints. Insert review of systems. All the systems were reviewed and were negative. Vital signs stable. Tolerating p.o. diet. Tolerating physical therapy. Review of Systems Review of Systems: All systems reviewed & are unremarkable except as noted in HPI and below (HPI) Exam Narrative: Patient is comfortable, NAD HEENT: eyes are clear and none icteric LUNGS:CTA HEART: RR S1S2 ABD: BS+, Soft and nontender Lower extremities: no edema SKIN: nonjaundiced Neuro: Started speech, AO x3, moves all 4 extremity, follows command. Objective Data Vital Signs Vital Signs: Vital Signs - 24 hr 08/02/25 16:00 08/02/25 20:00 08/02/25 20:18 Temperature 36.9 C 36.4 C L Pulse Rate 61 48 L Respiratory Rate 18 18 Blood Pressure 141/74 H 110/71 Pulse Oximetry 98 98 Oxygen Delivery Room Air 08/02/25 20:21 08/02/25 22:29 08/03/25 01:45 Temperature 36.5 C Pulse Rate 48 L 62 75 Respiratory Rate 18 20 Blood Pressure 146/104 H Pulse Oximetry 100 Oxygen Delivery 08/03/25 07:57 08/03/25 08:19 Temperature 36.6 C Pulse Rate 76 74 Respiratory Rate 20 Blood Pressure 167/87 H Pulse Oximetry 99 Oxygen Delivery Intake/Output Intake/Output: Intake & Output 07/31/25 08/01/25 08/02/25 08/03/25 23:59 23:59 23:59 23:59 Intake Total 720 480 480 350 Balance 720 480 480 350 Meds/Results Medications: Active Medications Generic Name Dose Route Start Last Admin Trade Name Freq PRN Reason Stop Dose Admin Acetaminophen 650 mg 07/20/25 13:52 07/24/25 08:38 Acetaminophen 325 Mg Tablet PO 650 mg Q4H PRN Administration Mild Pain (1-3) or Fever Aspirin 81 mg 07/22/25 09:00 08/03/25 08:19 Aspirin 81 Mg Enteric Tablet PO 81 mg QAM CORBIN Administration Atorvastatin Calcium 20 mg 07/30/25 09:00 08/03/25 08:18 Atorvastatin 20 Mg Tablet PO 20 mg DAILY CORBIN Administration Clonidine HCl 1 patch 07/28/25 09:00 07/28/25 08:50 Clonidine 0.2 Mg/24 Hr Patch TRANSDERM 1 patch WEEKLY CORBIN Administration Clopidogrel Bisulfate 75 mg 07/30/25 09:00 08/03/25 08:19 Clopidogrel Bisulfate 75 Mg Tablet PO 75 mg DAILY CORBIN Administration Docusate Sodium 100 mg 07/20/25 17:00 08/03/25 08:19 Docusate Sodium 100 Mg Capsule PO 100 mg BID CORBIN Administration Enoxaparin Sodium 40 mg 07/23/25 09:00 08/03/25 08:19 Enoxaparin 40 Mg/0.4 Ml Syringe SUB-Q 40 mg DAILY CORBIN Administration Fluticasone Propionate 2 puff 07/30/25 08:00 08/03/25 09:08 Fluticasone Prop 220 Mcg (*Sp) 12 Gm Inhaler INHALATION 2 puff Q12HRT CORBIN Administration Losartan Potassium 25 mg 07/30/25 09:00 08/03/25 08:19 Losartan Potassium 25 Mg Tablet PO 25 mg DAILY CORBIN Administration Metoprolol Tartrate 12.5 mg 07/24/25 09:25 08/03/25 08:19 Metoprolol Tartrate 12.5 Mg Tablet PO 12.5 mg Q12HR CORBIN Administration Multivitamins/Minerals 1 tablet 07/30/25 09:00 08/03/25 08:18 Opti-Gen Tab PO 1 tablet DAILY CORBIN Administration Olanzapine 5 mg 07/27/25 17:00 08/02/25 16:06 Olanzapine 5 Mg Tablet PO 5 mg 1700 CORBIN Administration Polyethylene Glycol 17 gm 07/30/25 08:03 Polyethylene Glycol 3350 17 Gm Powd.Pack PO DAILY PRN Constipation Quetiapine Fumarate 50 mg 07/31/25 21:00 08/02/25 20:21 Quetiapine Fumarate 25 Mg Tablet PO 50 mg HS CORBIN Administration Quetiapine Fumarate 50 mg 08/02/25 09:00 08/03/25 08:18 Quetiapine Fumarate 25 Mg Tablet PO 50 mg DAILY CORBIN Administration Senna 8.6 mg 07/30/25 08:03 Sennosides 8.6 Mg Tablet PO DAILY PRN Constipation Trazodone HCl 50 mg 08/01/25 21:00 08/02/25 20:21 Trazodone Hcl 50 Mg Tablet PO 50 mg HS CORBIN Administration Radiology Results: ITS Impressions Head CT 07/20/25 09:45 IMPRESSION: 1. Normal aging brain. 2. Chronic sinusitis. Chest X-Ray 07/20/25 09:49 Impression: No acute cardiopulmonary abnormality. Venous Doppler Study 07/24/25 17:42 Impression: Negative for DVT. Labs Labs: Laboratory Results - last 24 hr 08/03/25 04:01 WBC 6.7 RBC 3.85 L Hgb 11.0 L Hct 34.1 L MCV 88.6 MCH 28.6 MCHC 32.3 RDW 13.6 Plt Count 254 MPV 10.9 H Sodium 138 Potassium 4.0 Chloride 110 H Carbon Dioxide 24 Anion Gap 4 BUN 22 H Creatinine 0.96 Estim Creat Clear Calc 65 Estimated GFR > 60 Glucose 115 H Calcium 8.6 Magnesium 1.9 Quality VTE Prophylaxis VTE prophylaxis: mechanical ordered
[2025-08-04 04:01] LABS: Hematocrit 38.5 % (42.0-52.0); Hemoglobin 12.2 g/dL (14.0-18.0); Mean Corpuscular HGB Conc 31.7 g/dl (32-36); Mean Corpuscular Hemoglobin 28.2 pg (26-34); Mean Corpuscular Volume 89.1 fl (80-100); Platelet Count Result 301 k/mm3 (150-375); Red Blood Count 4.32 M/mm3 (4.6-6.20); White Blood Count 9.8 K/mm3 (4.5-10.0)
[2025-08-04 04:13] LABS: Anion Gap 6 mmol/L (4-12); Blood Urea Nitrogen 23 mg/dL (9-20); Calcium 9.0 mg/dL (8.4-10.2); Carbon Dioxide 26 mmol/L (22-30); Chloride 108 mmol/L (98-107); Estimated CRCL calculation 64 ml/min; Estimated Glomerular Filt Rate > 60; Glucose 119 mg/dL (65-110); Magnesium 2.0 mg/dL (1.6-2.3); Potassium 3.5 mmol/L (3.4-5.0); Sodium 140 mmol/L (137-145)
[2025-08-04 08:00] VITALS: BP 123/85; PULSE 82; RESP 16; TEMP 36.5; O2SAT 99
[2025-08-04] MEDS: FLUTICASONE PROP 220 MCG (*SP) 12 GM INHALER 2 PUFF INHALATION ×2 (08:17→20:19)
--- NOTE | 2025-08-04 08:26 | P.PNIM_ITS ---
Progress Note: A&P Assessment and Plan (1) Aggression: Code(s): R46.89 - Other symptoms and signs involving appearance and behavior Status: Acute Assessment and Plan: Likely secondary to dementia and delirium Overall improved. Continue Seroquel, trazodone and Zyprexa as as per Psychiatry recommendations. Continue behavioral modifications. Patient is awaiting placement to a memory care facility. (2) Elevated troponin: Code(s): R79.89 - Other specified abnormal findings of blood chemistry Status: Acute Assessment and Plan: Patient was evaluated by Cardiology and no further recommendations. Continue Plavix, Aspirin and Lipitor ECHO shows ejection fraction 65-70% (3) Hyperammonemia: Code(s): E72.20 - Disorder of urea cycle metabolism, unspecified Status: Acute Assessment and Plan: * Lactulose x1 * 07/24: Ammonia < 9 * resolved * Avoid Depakote (4) Acute dehydration: Code(s): E86.0 - Dehydration Status: Acute Assessment and Plan: Resolved with IV fluids. Patient now eating p.o. diet (5) Elevated CK: Code(s): R74.8 - Abnormal levels of other serum enzymes Status: Acute Assessment and Plan: Improved with IV fluid (6) Low TSH level: Code(s): R79.89 - Other specified abnormal findings of blood chemistry Status: Acute Assessment and Plan: T4 1.22 wnl, T3 within normal limits (7) Atrial fibrillation: Code(s): I48.91 - Unspecified atrial fibrillation Status: Acute Assessment and Plan: Continue metoprolol 12.5 mg p.o. b.i.d. Patient not a candidate for anticoagulation but is on antiplatelet therapy Plan PT OT is working with DVT prophylaxis on Sq Lovenox Subjective Date/time seen: 08/04/25 Patient sitting on a couch eating his breakfast with help of staff. Denies any complaints. Vital signs stable. Tolerating p.o. diet. Afebrile. Patient denies fever, chest pain, shortness of breath, cough, nausea vomiting, abdominal pain,, diarrhea, headache or constipation. All other systems were reviewed and were negative Review of Systems Review of Systems: All systems reviewed & are unremarkable except as noted in HPI and below (HPI) Exam Narrative: Patient is comfortable, NAD HEENT: eyes are clear and none icteric LUNGS:CTA HEART: RR S1S2 ABD: BS+, Soft and nontender Lower extremities: no edema SKIN: nonjaundiced Neuro: Started speech, AO x3, moves all 4 extremity, follows command. Objective Data Vital Signs Vital Signs: Vital Signs - 24 hr 08/03/25 16:00 08/03/25 20:00 08/03/25 20:07 Temperature 36.7 C 36.5 C Pulse Rate 72 50 L Respiratory Rate 18 18 Blood Pressure 105/73 117/65 Pulse Oximetry 97 98 Oxygen Delivery Room Air 08/03/25 20:13 08/03/25 20:32 Temperature Pulse Rate 50 L 67 Respiratory Rate 18 Blood Pressure Pulse Oximetry Oxygen Delivery Intake/Output Intake/Output: Intake & Output 08/01/25 08/02/25 08/03/25 08/04/25 23:59 23:59 23:59 23:59 Intake Total 480 480 940 440 Balance 480 480 940 440 Meds/Results Medications: Active Medications Generic Name Dose Route Start Last Admin Trade Name Freq PRN Reason Stop Dose Admin Acetaminophen 650 mg 07/20/25 13:52 07/24/25 08:38 Acetaminophen 325 Mg Tablet PO 650 mg Q4H PRN Administration Mild Pain (1-3) or Fever Aspirin 81 mg 07/22/25 09:00 08/03/25 08:19 Aspirin 81 Mg Enteric Tablet PO 81 mg QAM CORBIN Administration Atorvastatin Calcium 20 mg 07/30/25 09:00 08/03/25 08:18 Atorvastatin 20 Mg Tablet PO 20 mg DAILY CORBIN Administration Clonidine HCl 1 patch 07/28/25 09:00 07/28/25 08:50 Clonidine 0.2 Mg/24 Hr Patch TRANSDERM 1 patch WEEKLY CORBIN Administration Clopidogrel Bisulfate 75 mg 07/30/25 09:00 08/03/25 08:19 Clopidogrel Bisulfate 75 Mg Tablet PO 75 mg DAILY CORBIN Administration Docusate Sodium 100 mg 07/20/25 17:00 08/03/25 17:05 Docusate Sodium 100 Mg Capsule PO 100 mg BID CORBIN Administration Enoxaparin Sodium 40 mg 07/23/25 09:00 08/03/25 08:19 Enoxaparin 40 Mg/0.4 Ml Syringe SUB-Q 40 mg DAILY CORBIN Administration Fluticasone Propionate 2 puff 07/30/25 08:00 08/04/25 08:17 Fluticasone Prop 220 Mcg (*Sp) 12 Gm Inhaler INHALATION 2 puff Q12HRT CORBIN Administration Losartan Potassium 25 mg 07/30/25 09:00 08/03/25 08:19 Losartan Potassium 25 Mg Tablet PO 25 mg DAILY CORBIN Administration Metoprolol Tartrate 12.5 mg 07/24/25 09:25 08/03/25 20:13 Metoprolol Tartrate 12.5 Mg Tablet PO 12.5 mg Q12HR CORBIN Administration Multivitamins/Minerals 1 tablet 07/30/25 09:00 08/03/25 08:18 Opti-Gen Tab PO 1 tablet DAILY CORBIN Administration Olanzapine 5 mg 07/27/25 17:00 08/03/25 17:05 Olanzapine 5 Mg Tablet PO 5 mg 1700 CORBIN Administration Polyethylene Glycol 17 gm 07/30/25 08:03 Polyethylene Glycol 3350 17 Gm Powd.Pack PO DAILY PRN Constipation Quetiapine Fumarate 50 mg 07/31/25 21:00 08/03/25 21:07 Quetiapine Fumarate 25 Mg Tablet PO 50 mg HS CORBIN Administration Quetiapine Fumarate 50 mg 08/02/25 09:00 08/03/25 08:18 Quetiapine Fumarate 25 Mg Tablet PO 50 mg DAILY CORBIN Administration Senna 8.6 mg 07/30/25 08:03 Sennosides 8.6 Mg Tablet PO DAILY PRN Constipation Trazodone HCl 50 mg 08/01/25 21:00 08/03/25 21:07 Trazodone Hcl 50 Mg Tablet PO 50 mg HS CORBIN Administration Radiology Results: ITS Impressions Head CT 07/20/25 09:45 IMPRESSION: 1. Normal aging brain. 2. Chronic sinusitis. Chest X-Ray 07/20/25 09:49 Impression: No acute cardiopulmonary abnormality. Venous Doppler Study 07/24/25 17:42 Impression: Negative for DVT. Labs Labs: Laboratory Results - last 24 hr 08/04/25 08/04/25 03:57 07:31 WBC 9.8 RBC 4.32 L Hgb 12.2 L Hct 38.5 L MCV 89.1 MCH 28.2 MCHC 31.7 L RDW 13.7 Plt Count 301 MPV 10.6 H Sodium 140 Potassium 3.5 Chloride 108 H Carbon Dioxide 26 Anion Gap 6 BUN 23 H Creatinine 0.97 Estim Creat Clear Calc 64 Estimated GFR > 60 Glucose 119 H POC Capillary Glucose 98 Calcium 9.0 Magnesium 2.0 Quality VTE Prophylaxis VTE prophylaxis: mechanical ordered and pharmacologic ordered
[2025-08-04 08:29] VITALS: PULSE 82
[2025-08-04] MEDS: ENOXAPARIN 40 MG/0.4 ML SYRINGE SUB-Q (08:29)
[2025-08-04] MEDS: METOPROLOL TARTRATE 12.5 MG TABLET PO ×2 (08:29→20:23)
[2025-08-04] MEDS: ASPIRIN 81 MG ENTERIC TABLET PO (08:29)
[2025-08-04] MEDS: CLOPIDOGREL BISULFATE 75 MG TABLET PO (08:29)
[2025-08-04] MEDS: ATORVASTATIN 20 MG TABLET PO (08:30)
[2025-08-04] MEDS: DOCUSATE SODIUM 100 MG CAPSULE PO ×2 (08:30→16:55)
[2025-08-04] MEDS: LOSARTAN POTASSIUM 25 MG TABLET PO (08:30)
[2025-08-04] MEDS: OPTI-GEN TAB 1 TABLET PO (08:30)
[2025-08-04 16:00] VITALS: BP 151/99; PULSE 85; RESP 18; TEMP 36.6; O2SAT 98
[2025-08-04 20:30] VITALS: BP 131/79; PULSE 64; RESP 16; TEMP 36.4; O2SAT 96
[2025-08-05 04:11] LABS: Hematocrit 34.6 % (42.0-52.0); Hemoglobin 10.8 g/dL (14.0-18.0); Mean Corpuscular HGB Conc 31.2 g/dl (32-36); Mean Corpuscular Hemoglobin 27.9 pg (26-34); Mean Corpuscular Volume 89.4 fl (80-100); Platelet Count Result 253 k/mm3 (150-375); Red Blood Count 3.87 M/mm3 (4.6-6.20); White Blood Count 6.2 K/mm3 (4.5-10.0)
[2025-08-05 05:06] LABS: Anion Gap 4 mmol/L (4-12); Blood Urea Nitrogen 19 mg/dL (9-20); Calcium 8.6 mg/dL (8.4-10.2); Carbon Dioxide 25 mmol/L (22-30); Chloride 110 mmol/L (98-107); Estimated CRCL calculation 69 ml/min; Estimated Glomerular Filt Rate > 60; Glucose 94 mg/dL (65-110); Magnesium 1.9 mg/dL (1.6-2.3); Potassium 3.7 mmol/L (3.4-5.0); Sodium 139 mmol/L (137-145)
[2025-08-05 07:39] VITALS: PULSE 117; RESP 18; O2SAT 99
[2025-08-05 08:26] VITALS: BP 151/96; PULSE 100; RESP 18; TEMP 37.1; O2SAT 97
[2025-08-05 08:29] VITALS: PULSE 100
[2025-08-05] MEDS: METOPROLOL TARTRATE 12.5 MG TABLET PO ×2 (08:29→20:19)
[2025-08-05] MEDS: ASPIRIN 81 MG ENTERIC TABLET PO (08:29)
[2025-08-05] MEDS: OPTI-GEN TAB 1 TABLET PO (08:29)
[2025-08-05] MEDS: CLOPIDOGREL BISULFATE 75 MG TABLET PO (08:29)
[2025-08-05] MEDS: DOCUSATE SODIUM 100 MG CAPSULE PO ×2 (08:29→16:39)
[2025-08-05] MEDS: ATORVASTATIN 20 MG TABLET PO (08:29)
[2025-08-05] MEDS: LOSARTAN POTASSIUM 25 MG TABLET PO (08:30)
[2025-08-05] MEDS: ENOXAPARIN 40 MG/0.4 ML SYRINGE SUB-Q (08:30)
[2025-08-05] MEDS: FLUTICASONE PROP 220 MCG (*SP) 12 GM INHALER 2 PUFF INHALATION ×2 (09:00→20:28)
--- NOTE | 2025-08-05 10:11 | P.PNIM_ITS ---
Progress Note: A&P Assessment and Plan (1) Aggression: Code(s): R46.89 - Other symptoms and signs involving appearance and behavior Status: Acute Assessment and Plan: Likely secondary to dementia and delirium Overall improved. Continue Seroquel, trazodone and Zyprexa as as per Psychiatry recommendations. Continue behavioral modifications. Patient is awaiting placement to a memory care facility. (2) Elevated troponin: Code(s): R79.89 - Other specified abnormal findings of blood chemistry Status: Acute Assessment and Plan: Patient was evaluated by Cardiology and no further recommendations. Continue Plavix, Aspirin and Lipitor ECHO shows ejection fraction 65-70% (3) Hyperammonemia: Code(s): E72.20 - Disorder of urea cycle metabolism, unspecified Status: Acute Assessment and Plan: * Lactulose x1 * 07/24: Ammonia < 9 * resolved * Avoid Depakote (4) Acute dehydration: Code(s): E86.0 - Dehydration Status: Acute Assessment and Plan: Resolved with IV fluids. Patient now eating p.o. diet (5) Elevated CK: Code(s): R74.8 - Abnormal levels of other serum enzymes Status: Acute Assessment and Plan: Improved with IV fluid (6) Low TSH level: Code(s): R79.89 - Other specified abnormal findings of blood chemistry Status: Acute Assessment and Plan: T4 1.22 wnl, T3 within normal limits (7) Atrial fibrillation: Code(s): I48.91 - Unspecified atrial fibrillation Status: Acute Assessment and Plan: Continue metoprolol 12.5 mg p.o. b.i.d. Patient not a candidate for anticoagulation but is on antiplatelet therapy Plan PT OT is working with DVT prophylaxis on Sq Lovenox Subjective Date/time seen: 08/05/25 10:11 Interval history: Patient was seen during the morning rounds today. Patient has no new complaints. Walking around in the hallway. No shortness of breath or chest pain. Mood stable. Review of Systems Review of Systems: All systems reviewed & are unremarkable except as noted in HPI and below (HPI) ROS unobtainable: Yes unobtainable due to mental status Exam Narrative: Patient is comfortable, NAD HEENT: eyes are clear and none icteric LUNGS:CTA HEART: RR S1S2 ABD: BS+, Soft and nontender Lower extremities: no edema SKIN: nonjaundiced Neuro: Started speech, AO x3, moves all 4 extremity, follows command. Objective Data Vital Signs Vital Signs: Vital Signs - 24 hr 08/04/25 16:00 08/04/25 20:00 08/04/25 20:30 Temperature 36.6 C 36.4 C L Pulse Rate 85 64 Respiratory Rate 18 16 Blood Pressure 151/99 H 131/79 Pulse Oximetry 98 96 Oxygen Delivery Room Air 08/05/25 07:39 08/05/25 08:26 08/05/25 08:29 Temperature 37.1 C Pulse Rate 117 H 100 100 Respiratory Rate 18 18 Blood Pressure 151/96 H Pulse Oximetry 99 97 Oxygen Delivery Intake/Output Intake/Output: Intake & Output 08/02/25 08/03/25 08/04/25 08/05/25 23:59 23:59 23:59 22:59 Intake Total 480 940 490 420 Balance 480 940 490 420 Meds/Results Medications: Active Medications Generic Name Dose Route Start Last Admin Trade Name Freq PRN Reason Stop Dose Admin Acetaminophen 650 mg 07/20/25 13:52 07/24/25 08:38 Acetaminophen 325 Mg Tablet PO 650 mg Q4H PRN Administration Mild Pain (1-3) or Fever Aspirin 81 mg 07/22/25 09:00 08/05/25 08:29 Aspirin 81 Mg Enteric Tablet PO 81 mg QAM CORBIN Administration Atorvastatin Calcium 20 mg 07/30/25 09:00 08/05/25 08:29 Atorvastatin 20 Mg Tablet PO 20 mg DAILY CORBIN Administration Clonidine HCl 1 patch 07/28/25 09:00 08/04/25 08:30 Clonidine 0.2 Mg/24 Hr Patch TRANSDERM 1 patch WEEKLY CORBIN Administration Clopidogrel Bisulfate 75 mg 07/30/25 09:00 08/05/25 08:29 Clopidogrel Bisulfate 75 Mg Tablet PO 75 mg DAILY CORBIN Administration Docusate Sodium 100 mg 07/20/25 17:00 08/05/25 08:29 Docusate Sodium 100 Mg Capsule PO 100 mg BID CORBIN Administration Enoxaparin Sodium 40 mg 07/23/25 09:00 08/05/25 08:30 Enoxaparin 40 Mg/0.4 Ml Syringe SUB-Q 40 mg DAILY CORBIN Administration Fluticasone Propionate 2 puff 07/30/25 08:00 08/05/25 09:00 Fluticasone Prop 220 Mcg (*Sp) 12 Gm Inhaler INHALATION 2 puff Q12HRT CORBIN Administration Losartan Potassium 25 mg 07/30/25 09:00 08/05/25 08:30 Losartan Potassium 25 Mg Tablet PO 25 mg DAILY CORBIN Administration Metoprolol Tartrate 12.5 mg 07/24/25 09:25 08/05/25 08:29 Metoprolol Tartrate 12.5 Mg Tablet PO 12.5 mg Q12HR CORBIN Administration Multivitamins/Minerals 1 tablet 07/30/25 09:00 08/05/25 08:29 Opti-Gen Tab PO 1 tablet DAILY CORBIN Administration Olanzapine 5 mg 07/27/25 17:00 08/04/25 16:55 Olanzapine 5 Mg Tablet PO 5 mg 1700 CORBIN Administration Polyethylene Glycol 17 gm 07/30/25 08:03 Polyethylene Glycol 3350 17 Gm Powd.Pack PO DAILY PRN Constipation Quetiapine Fumarate 50 mg 07/31/25 21:00 08/04/25 20:23 Quetiapine Fumarate 25 Mg Tablet PO 50 mg HS CORBIN Administration Quetiapine Fumarate 50 mg 08/02/25 09:00 08/05/25 08:29 Quetiapine Fumarate 25 Mg Tablet PO 50 mg DAILY CORBIN Administration Senna 8.6 mg 07/30/25 08:03 Sennosides 8.6 Mg Tablet PO DAILY PRN Constipation Trazodone HCl 50 mg 08/01/25 21:00 08/04/25 20:23 Trazodone Hcl 50 Mg Tablet PO 50 mg HS CORBIN Administration Radiology Results: ITS Impressions Head CT 07/20/25 09:45 IMPRESSION: 1. Normal aging brain. 2. Chronic sinusitis. Chest X-Ray 07/20/25 09:49 Impression: No acute cardiopulmonary abnormality. Venous Doppler Study 07/24/25 17:42 Impression: Negative for DVT. Labs Labs: Laboratory Results - last 24 hr 08/05/25 03:48 WBC 6.2 RBC 3.87 L Hgb 10.8 L Hct 34.6 L MCV 89.4 MCH 27.9 MCHC 31.2 L RDW 13.7 Plt Count 253 MPV 10.9 H Sodium 139 Potassium 3.7 Chloride 110 H Carbon Dioxide 25 Anion Gap 4 BUN 19 Creatinine 0.89 Estim Creat Clear Calc 69 Estimated GFR > 60 Glucose 94 Calcium 8.6 Magnesium 1.9 Quality VTE Prophylaxis VTE prophylaxis: mechanical ordered and pharmacologic ordered
--- NOTE | 2025-08-05 14:07 | ECG_ITS ---
Test Date: 2025-08-05 15:06:56 Measurements Intervals [place] Rate: 89 P: 89 NM: 235 QRS: 207 QRSD: 108 T: 136 QT: 363 QTc: 443 Interpretive Statements SINUS RHYTHM WITH FIRST DEGREE AV BLOCK WITH FREQUENT VENTRICULAR PREMATURE COMPLEXES lead reversal Poor R wave progression Electronically Signed On 08-05-2025 15:54:00 [employer] by Natalie Miguel M.D.
[2025-08-05 15:25] VITALS: BP 145/76; PULSE 91; RESP 18; TEMP 36.6; O2SAT 100
[2025-08-05 22:07] VITALS: BP 158/90; PULSE 94; RESP 18; TEMP 36.4; O2SAT 96
[2025-08-06] MEDS: FLUTICASONE PROP 220 MCG (*SP) 12 GM INHALER 2 PUFF INHALATION (07:20)
[2025-08-06 07:25] LABS: Hematocrit 34.9 % (42.0-52.0); Hemoglobin 11.3 g/dL (14.0-18.0); Mean Corpuscular HGB Conc 32.4 g/dl (32-36); Mean Corpuscular Hemoglobin 28.5 pg (26-34); Mean Corpuscular Volume 87.9 fl (80-100); Platelet Count Result 245 k/mm3 (150-375); Red Blood Count 3.97 M/mm3 (4.6-6.20); White Blood Count 6.6 K/mm3 (4.5-10.0)
[2025-08-06] MEDS: DOCUSATE SODIUM 100 MG CAPSULE PO ×2 (07:54→16:25)
[2025-08-06 07:55] VITALS: PULSE 73
[2025-08-06] MEDS: METOPROLOL TARTRATE 12.5 MG TABLET PO ×2 (07:55→20:17)
[2025-08-06] MEDS: ASPIRIN 81 MG ENTERIC TABLET PO (07:55)
[2025-08-06] MEDS: OPTI-GEN TAB 1 TABLET PO (07:56)
[2025-08-06 08:00] VITALS: BP 154/84; PULSE 73; TEMP 36.8; O2SAT 96
[2025-08-06] MEDS: LOSARTAN POTASSIUM 25 MG TABLET PO (08:00)
[2025-08-06] MEDS: ATORVASTATIN 20 MG TABLET PO (08:00)
[2025-08-06] MEDS: CLOPIDOGREL BISULFATE 75 MG TABLET PO (08:00)
[2025-08-06] MEDS: ENOXAPARIN 40 MG/0.4 ML SYRINGE SUB-Q (08:00)
--- NOTE | 2025-08-06 08:00 | ECG_ITS ---
Test Date: 2025-08-06 08:02:10 Measurements Intervals [place] Rate: 80 P: 61 GA: 235 QRS: -14 QRSD: 125 T: 145 QT: 382 QTc: 443 Interpretive Statements SINUS RHYTHM, SIGNIFICANT BASELINE ARTIFACT FREQUENT VENTRICULAR PREMATURE COMPLEXES NONSPECIFIC ST & T-WAVE ABNORMALITY Compared to ECG 08/05/2025 15:06:56 NO SIGNIFICANT CHANGES Electronically Signed On 08-06-2025 09:41:42 [employer] MACHINE [employer]ER by Lee Hernandez M.D.
[2025-08-06 08:07] LABS: Anion Gap 3 mmol/L (4-12); Blood Urea Nitrogen 15 mg/dL (9-20); Calcium 8.8 mg/dL (8.4-10.2); Carbon Dioxide 28 mmol/L (22-30); Chloride 108 mmol/L (98-107); Estimated CRCL calculation 71 ml/min; Estimated Glomerular Filt Rate > 60; Glucose 100 mg/dL (65-110); Magnesium 1.9 mg/dL (1.6-2.3); Potassium 3.5 mmol/L (3.4-5.0); Sodium 139 mmol/L (137-145)
--- NOTE | 2025-08-06 15:11 | P.PNIM_ITS ---
Progress Note: A&P Assessment and Plan (1) Aggression: Code(s): R46.89 - Other symptoms and signs involving appearance and behavior Status: Acute Assessment and Plan: Likely secondary to dementia and delirium Overall improved. Continue Seroquel, trazodone and Zyprexa as as per Psychiatry recommendations. Continue behavioral modifications. Patient is awaiting placement to a memory care facility. (2) Elevated troponin: Code(s): R79.89 - Other specified abnormal findings of blood chemistry Status: Acute Assessment and Plan: Patient was evaluated by Cardiology and no further recommendations. Continue Plavix, Aspirin and Lipitor ECHO shows ejection fraction 65-70% (3) Hyperammonemia: Code(s): E72.20 - Disorder of urea cycle metabolism, unspecified Status: Acute Assessment and Plan: * Lactulose x1 * 07/24: Ammonia < 9 * resolved * Avoid Depakote (4) Acute dehydration: Code(s): E86.0 - Dehydration Status: Acute Assessment and Plan: Resolved with IV fluids. Patient now eating p.o. diet (5) Elevated CK: Code(s): R74.8 - Abnormal levels of other serum enzymes Status: Acute Assessment and Plan: Improved with IV fluid (6) Low TSH level: Code(s): R79.89 - Other specified abnormal findings of blood chemistry Status: Acute Assessment and Plan: T4 1.22 wnl, T3 within normal limits (7) Atrial fibrillation: Code(s): I48.91 - Unspecified atrial fibrillation Status: Acute Assessment and Plan: Continue metoprolol 12.5 mg p.o. b.i.d. Patient not a candidate for anticoagulation but is on antiplatelet therapy Plan PT OT is working with DVT prophylaxis on Sq Lovenox Time Spent With Patient Time: 33 mins Subjective Date/time seen: 08/06/25 15:11 Interval history: No acute events overnight Review of Systems Review of Systems: ROS unobtainable: Yes unobtainable due to mental status Exam Narrative: Patient is comfortable, NAD HEENT: eyes are clear and none icteric LUNGS:CTA HEART: RR S1S2 ABD: BS+, Soft and nontender Lower extremities: no edema SKIN: nonjaundiced Neuro: Started speech, AO x3, moves all 4 extremity, follows command. Objective Data Vital Signs Vital Signs: Vital Signs - 24 hr 08/05/25 15:25 08/05/25 22:07 08/06/25 07:55 Temperature 97.8 F 97.6 F Pulse Rate 91 94 73 Respiratory Rate 18 18 Blood Pressure 145/76 H 158/90 H Pulse Oximetry 100 96 Oxygen Delivery 08/06/25 08:00 08/06/25 08:00 Temperature 98.2 F Pulse Rate 73 Respiratory Rate Blood Pressure 154/84 H Pulse Oximetry 96 Oxygen Delivery Room Air Intake/Output Intake/Output: Intake & Output 08/03/25 08/04/25 08/05/25 08/06/25 23:59 23:59 22:59 23:59 Intake Total 716 561 8120 360 Balance 226 977 7166 360 Meds/Results Medications: Active Medications Generic Name Dose Route Start Last Admin Trade Name Freq PRN Reason Stop Dose Admin Acetaminophen 650 mg 07/20/25 13:52 07/24/25 08:38 Acetaminophen 325 Mg Tablet PO 650 mg Q4H PRN Administration Mild Pain (1-3) or Fever Aspirin 81 mg 07/22/25 09:00 08/06/25 07:55 Aspirin 81 Mg Enteric Tablet PO 81 mg QAM CORBIN Administration Atorvastatin Calcium 20 mg 07/30/25 09:00 08/06/25 08:00 Atorvastatin 20 Mg Tablet PO 20 mg DAILY CORBIN Administration Clonidine HCl 1 patch 07/28/25 09:00 08/04/25 08:30 Clonidine 0.2 Mg/24 Hr Patch TRANSDERM 1 patch WEEKLY CORBIN Administration Clopidogrel Bisulfate 75 mg 07/30/25 09:00 08/06/25 08:00 Clopidogrel Bisulfate 75 Mg Tablet PO 75 mg DAILY CORBIN Administration Docusate Sodium 100 mg 07/20/25 17:00 08/06/25 07:54 Docusate Sodium 100 Mg Capsule PO 100 mg BID CORBIN Administration Enoxaparin Sodium 40 mg 07/23/25 09:00 08/06/25 08:00 Enoxaparin 40 Mg/0.4 Ml Syringe SUB-Q 40 mg DAILY CORBIN Administration Fluticasone Propionate 2 puff 07/30/25 08:00 08/06/25 07:20 Fluticasone Prop 220 Mcg (*Sp) 12 Gm Inhaler INHALATION 2 puff Q12HRT CORBIN Administration Losartan Potassium 25 mg 07/30/25 09:00 08/06/25 08:00 Losartan Potassium 25 Mg Tablet PO 25 mg DAILY CORBIN Administration Metoprolol Tartrate 12.5 mg 07/24/25 09:25 08/06/25 07:55 Metoprolol Tartrate 12.5 Mg Tablet PO 12.5 mg Q12HR CORBIN Administration Multivitamins/Minerals 1 tablet 07/30/25 09:00 08/06/25 07:56 Opti-Gen Tab PO 1 tablet DAILY CORBIN Administration Olanzapine 5 mg 07/27/25 17:00 08/05/25 16:39 Olanzapine 5 Mg Tablet PO 5 mg 1700 CORBIN Administration Polyethylene Glycol 17 gm 07/30/25 08:03 Polyethylene Glycol 3350 17 Gm Powd.Pack PO DAILY PRN Constipation Quetiapine Fumarate 50 mg 07/31/25 21:00 08/05/25 20:19 Quetiapine Fumarate 25 Mg Tablet PO 50 mg HS CORBIN Administration Quetiapine Fumarate 50 mg 08/02/25 09:00 08/06/25 08:00 Quetiapine Fumarate 25 Mg Tablet PO 50 mg DAILY CORBIN Administration Quetiapine Fumarate 50 mg 08/05/25 15:00 08/06/25 14:36 Quetiapine Fumarate 25 Mg Tablet PO 50 mg DAILY@1500 CORBIN Administration Senna 8.6 mg 07/30/25 08:03 Sennosides 8.6 Mg Tablet PO DAILY PRN Constipation Trazodone HCl 50 mg 08/01/25 21:00 08/05/25 20:19 Trazodone Hcl 50 Mg Tablet PO 50 mg HS CORBIN Administration Radiology Results: ITS Impressions Head CT 07/20/25 09:45 IMPRESSION: 1. Normal aging brain. 2. Chronic sinusitis. Chest X-Ray 07/20/25 09:49 Impression: No acute cardiopulmonary abnormality. Venous Doppler Study 07/24/25 17:42 Impression: Negative for DVT. Labs Labs: Laboratory Results - last 24 hr 08/06/25 08/06/25 07:15 07:16 WBC 6.6 RBC 3.97 L Hgb 11.3 L Hct 34.9 L MCV 87.9 MCH 28.5 MCHC 32.4 RDW 13.7 Plt Count 245 MPV 10.5 H Sodium 139 Potassium 3.5 Chloride 108 H Carbon Dioxide 28 Anion Gap 3 L BUN 15 Creatinine 0.87 Estim Creat Clear Calc 71 Estimated GFR > 60 Glucose 100 Calcium 8.8 Magnesium 1.9 Quality VTE Prophylaxis VTE prophylaxis: pharmacologic ordered
[2025-08-06 16:00] VITALS: BP 132/75; PULSE 92; TEMP 36.6
[2025-08-06 20:17] VITALS: BP 147/93; PULSE 87; TEMP 36.5; O2SAT 98
[2025-08-07] VITALS (7 sets, daily range): BP systolic 117–167; BP diastolic 80–100; PULSE 58–84; RESP 14–20; TEMP 36.6–36.7; O2SAT 96–98
--- NOTE | 2025-08-07 06:19 | PC.NURSE ---
Lab attempted to get AM labs twice this am but patient refused. They will come back and try later this morning.
[2025-08-07 07:23] LABS: Hematocrit 38.1 % (42.0-52.0); Hemoglobin 12.2 g/dL (14.0-18.0); Mean Corpuscular HGB Conc 32.0 g/dl (32-36); Mean Corpuscular Hemoglobin 28.2 pg (26-34); Mean Corpuscular Volume 88.2 fl (80-100); Platelet Count Result 249 k/mm3 (150-375); Red Blood Count 4.32 M/mm3 (4.6-6.20); White Blood Count 10.0 K/mm3 (4.5-10.0)
[2025-08-07 07:43] LABS: Anion Gap 4 mmol/L (4-12); Blood Urea Nitrogen 15 mg/dL (9-20); Calcium 8.8 mg/dL (8.4-10.2); Carbon Dioxide 29 mmol/L (22-30); Chloride 106 mmol/L (98-107); Estimated CRCL calculation 72 ml/min; Estimated Glomerular Filt Rate > 60; Glucose 97 mg/dL (65-110); Magnesium 1.9 mg/dL (1.6-2.3); Potassium 3.6 mmol/L (3.4-5.0); Sodium 139 mmol/L (137-145)
--- NOTE | 2025-08-07 08:06 | ECG_ITS ---
Test Date: 2025-08-07 08:17:26 Measurements Intervals [place] Rate: 58 P: 93 IA: 204 QRS: -29 QRSD: 134 T: 61 QT: 433 QTc: 429 Interpretive Statements SINUS BRADYCARDIA WITH OCCASIONAL SUPRAVENTRICULAR PREMATURE COMPLEXES BORDERLINE LEFT AXIS DEVIATION [QRS AXIS < -20] INTRAVENTRICULAR CONDUCTION DELAY [130+ ms QRS DURATION] Electronically Signed On 08-07-2025 21:20:11 [employer] by Natalie Miguel M.D.
[2025-08-07] MEDS: ASPIRIN 81 MG ENTERIC TABLET PO (08:22)
[2025-08-07] MEDS: ATORVASTATIN 20 MG TABLET PO (08:22)
[2025-08-07] MEDS: OPTI-GEN TAB 1 TABLET PO (08:22)
[2025-08-07] MEDS: DOCUSATE SODIUM 100 MG CAPSULE PO ×2 (08:23→16:34)
[2025-08-07] MEDS: ENOXAPARIN 40 MG/0.4 ML SYRINGE SUB-Q (08:23)
[2025-08-07] MEDS: CLOPIDOGREL BISULFATE 75 MG TABLET PO (08:23)
[2025-08-07] MEDS: LOSARTAN POTASSIUM 25 MG TABLET PO (08:23)
[2025-08-07] MEDS: FLUTICASONE PROP 220 MCG (*SP) 12 GM INHALER 2 PUFF INHALATION ×2 (08:40→20:15)
--- NOTE | 2025-08-07 09:07 | P.PNIM_ITS ---
Progress Note: A&P Assessment and Plan (1) Aggression: Code(s): R46.89 - Other symptoms and signs involving appearance and behavior Status: Acute Assessment and Plan: Likely secondary to dementia and delirium Overall improved. Continue Seroquel, trazodone and Zyprexa as as per Psychiatry recommendations. Continue behavioral modifications. Patient is awaiting placement to a memory care facility. (2) Elevated troponin: Code(s): R79.89 - Other specified abnormal findings of blood chemistry Status: Acute Assessment and Plan: Patient was evaluated by Cardiology and no further recommendations. Continue Plavix, Aspirin and Lipitor ECHO shows ejection fraction 65-70% (3) Hyperammonemia: Code(s): E72.20 - Disorder of urea cycle metabolism, unspecified Status: Acute Assessment and Plan: * Lactulose x1 * 07/24: Ammonia < 9 * resolved * Avoid Depakote (4) Acute dehydration: Code(s): E86.0 - Dehydration Status: Acute Assessment and Plan: Resolved with IV fluids. Patient now eating p.o. diet (5) Elevated CK: Code(s): R74.8 - Abnormal levels of other serum enzymes Status: Acute Assessment and Plan: Improved with IV fluid (6) Low TSH level: Code(s): R79.89 - Other specified abnormal findings of blood chemistry Status: Acute Assessment and Plan: T4 1.22 wnl, T3 within normal limits (7) Atrial fibrillation: Code(s): I48.91 - Unspecified atrial fibrillation Status: Acute Assessment and Plan: Continue metoprolol 12.5 mg p.o. b.i.d. Patient not a candidate for anticoagulation but is on antiplatelet therapy Plan PT OT is working with DVT prophylaxis on Sq Lovenox Subjective Date/time seen: 08/07/25 No major issues overnight except patient pulled out his IV line. Denies any other complaints. Has been working with physical therapy. Tolerating p.o. diet. Taking his medications regularly. Patient denies fever, chest pain, shortness of breath, cough, nausea vomiting, abdominal pain,, diarrhea, headache or constipation. All other systems were reviewed and were negative Review of Systems Review of Systems: All systems reviewed & are unremarkable except as noted in HPI and below (HPI) Exam Narrative: Patient is comfortable, NAD sitting in the couch HEENT: eyes are clear and none icteric LUNGS:CTA HEART: RR S1S2 ABD: BS+, Soft and nontender Lower extremities: no edema SKIN: nonjaundiced Neuro: Stuttered speech, AO x3, moves all 4 extremity, follows command. Objective Data Vital Signs Vital Signs: Vital Signs - 24 hr 08/06/25 16:00 08/06/25 20:00 08/06/25 20:17 Temperature 36.6 C Pulse Rate 92 87 Respiratory Rate Blood Pressure 132/75 Pulse Oximetry Oxygen Delivery Room Air 08/06/25 20:17 08/07/25 08:23 08/07/25 08:24 Temperature 36.5 C 36.7 C Pulse Rate 87 58 L 58 L Respiratory Rate 18 Blood Pressure 147/93 H 166/80 H Pulse Oximetry 98 96 Oxygen Delivery 08/07/25 08:45 Temperature Pulse Rate 74 Respiratory Rate 14 Blood Pressure Pulse Oximetry Oxygen Delivery Intake/Output Intake/Output: Intake & Output 08/04/25 08/05/25 08/06/25 08/07/25 23:59 22:59 23:59 23:59 Intake Total 490 1100 480 Balance 490 1100 480 Meds/Results Medications: Active Medications Generic Name Dose Route Start Last Admin Trade Name Freq PRN Reason Stop Dose Admin Acetaminophen 650 mg 07/20/25 13:52 07/24/25 08:38 Acetaminophen 325 Mg Tablet PO 650 mg Q4H PRN Administration Mild Pain (1-3) or Fever Aspirin 81 mg 07/22/25 09:00 08/07/25 08:22 Aspirin 81 Mg Enteric Tablet PO 81 mg QAM CORBIN Administration Atorvastatin Calcium 20 mg 07/30/25 09:00 08/07/25 08:22 Atorvastatin 20 Mg Tablet PO 20 mg DAILY CORBIN Administration Clonidine HCl 1 patch 07/28/25 09:00 08/04/25 08:30 Clonidine 0.2 Mg/24 Hr Patch TRANSDERM 1 patch WEEKLY CORBIN Administration Clopidogrel Bisulfate 75 mg 07/30/25 09:00 08/07/25 08:23 Clopidogrel Bisulfate 75 Mg Tablet PO 75 mg DAILY CORBIN Administration Docusate Sodium 100 mg 07/20/25 17:00 08/07/25 08:23 Docusate Sodium 100 Mg Capsule PO 100 mg BID CORBIN Administration Enoxaparin Sodium 40 mg 07/23/25 09:00 08/07/25 08:23 Enoxaparin 40 Mg/0.4 Ml Syringe SUB-Q 40 mg DAILY CORBIN Administration Fluticasone Propionate 2 puff 07/30/25 08:00 08/07/25 08:40 Fluticasone Prop 220 Mcg (*Sp) 12 Gm Inhaler INHALATION 2 puff Q12HRT CORBIN Administration Losartan Potassium 25 mg 07/30/25 09:00 08/07/25 08:23 Losartan Potassium 25 Mg Tablet PO 25 mg DAILY CORBIN Administration Metoprolol Tartrate 12.5 mg 07/24/25 09:25 08/07/25 08:23 Metoprolol Tartrate 12.5 Mg Tablet PO Not Given Q12HR CORBIN Multivitamins/Minerals 1 tablet 07/30/25 09:00 08/07/25 08:22 Opti-Gen Tab PO 1 tablet DAILY CORBIN Administration Olanzapine 5 mg 07/27/25 17:00 08/06/25 16:25 Olanzapine 5 Mg Tablet PO 5 mg 1700 CORBIN Administration Polyethylene Glycol 17 gm 07/30/25 08:03 Polyethylene Glycol 3350 17 Gm Powd.Pack PO DAILY PRN Constipation Quetiapine Fumarate 50 mg 07/31/25 21:00 08/06/25 20:16 Quetiapine Fumarate 25 Mg Tablet PO 50 mg HS CORBIN Administration Quetiapine Fumarate 50 mg 08/02/25 09:00 08/07/25 08:22 Quetiapine Fumarate 25 Mg Tablet PO 50 mg DAILY CORBIN Administration Quetiapine Fumarate 50 mg 08/05/25 15:00 08/06/25 14:36 Quetiapine Fumarate 25 Mg Tablet PO 50 mg DAILY@1500 CORBIN Administration Senna 8.6 mg 07/30/25 08:03 Sennosides 8.6 Mg Tablet PO DAILY PRN Constipation Trazodone HCl 50 mg 08/01/25 21:00 08/06/25 20:17 Trazodone Hcl 50 Mg Tablet PO 50 mg HS CORBIN Administration Radiology Results: ITS Impressions Head CT 07/20/25 09:45 IMPRESSION: 1. Normal aging brain. 2. Chronic sinusitis. Chest X-Ray 07/20/25 09:49 Impression: No acute cardiopulmonary abnormality. Venous Doppler Study 07/24/25 17:42 Impression: Negative for DVT. Labs Labs: Laboratory Results - last 24 hr 08/07/25 07:19 WBC 10.0 RBC 4.32 L Hgb 12.2 L Hct 38.1 L MCV 88.2 MCH 28.2 MCHC 32.0 RDW 13.8 Plt Count 249 MPV 10.3 Sodium 139 Potassium 3.6 Chloride 106 Carbon Dioxide 29 Anion Gap 4 BUN 15 Creatinine 0.86 Estim Creat Clear Calc 72 Estimated GFR > 60 Glucose 97 Calcium 8.8 Magnesium 1.9 Quality VTE Prophylaxis VTE prophylaxis: pharmacologic ordered
[2025-08-07] MEDS: METOPROLOL TARTRATE 12.5 MG TABLET PO (21:42)
[2025-08-08 04:15] VITALS: BP 152/89; PULSE 72; RESP 16; TEMP 36.6; O2SAT 97
[2025-08-08] MEDS: FLUTICASONE PROP 220 MCG (*SP) 12 GM INHALER 2 PUFF INHALATION (07:44)
[2025-08-08 07:45] VITALS: PULSE 88; RESP 20
[2025-08-08 08:48] VITALS: PULSE 87
[2025-08-08] MEDS: METOPROLOL TARTRATE 12.5 MG TABLET PO (08:48)
[2025-08-08] MEDS: ATORVASTATIN 20 MG TABLET PO (08:48)
[2025-08-08] MEDS: DOCUSATE SODIUM 100 MG CAPSULE PO (08:48)
[2025-08-08] MEDS: OPTI-GEN TAB 1 TABLET PO (08:48)
[2025-08-08] MEDS: ASPIRIN 81 MG ENTERIC TABLET PO (08:48)
[2025-08-08] MEDS: CLOPIDOGREL BISULFATE 75 MG TABLET PO (08:48)
[2025-08-08] MEDS: LOSARTAN POTASSIUM 25 MG TABLET PO (08:49)
[2025-08-08] MEDS: ENOXAPARIN 40 MG/0.4 ML SYRINGE SUB-Q (08:49)
[2025-08-08 08:53] VITALS: BP 137/82; PULSE 87; RESP 18; TEMP 36.5; O2SAT 98
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
== END 2025-08-08 14:26 | DRG 57 ==
LOC: ANHED 12:54 → ANH3MEDSUR 14:20 → ANH2MED 17:06 → ANHICU 07-24 11:28
PROVIDERS: General Practice; Internal Medicine; Nurse Practitioner Gerontology; Admitting Provider Internal Medicine; Emergency Provider Nurse Practitioner Family; Visit Provider Family Medicine
DX: G31.83 Neurocognitive disorder with Lewy bodies (principal); F02.811 Dementia in other diseases classified elsewhere, unspecified severity, with agitation; E72.20 Disorder of urea cycle metabolism, unspecified; E86.0 Dehydration; Z66 Do not resuscitate; I48.91 Unspecified atrial fibrillation
CPT/HCPCS: 36415; 36600; 70450; 71045; 80048; 80053; 80143; 80165; 80179; 81001; 82077; 82140; 82375; 82550; 82565; 82805; 82948; 83050; 83735; 84100; 84439; 84443; 84481; 84484; 85018; 85025; 85027; 85049; 85610; 85730; 93005; 93971; 94640; 96361; 96372; 96374; 97161; 97165; 99285; A9270; C8929; G0378; J1650; J2359; J3360; J3475; J7030; Q9957